=== PATIENT | male | born 1940 | race Caucasian/White ===

== ENCOUNTER 2023-01-10 12:43 | Outpatient (OUT) | payer MEDICARE, SELFPAY ==
[2023-01-10 13:23] LABS: Estimated GFR (African America >60 (>=60); Estimated GFR (Non-African Ame >60 (>=60)
== END 2023-01-10 12:44 | disposition home or self-care (01) ==
LOC: LAB 12:53
PROVIDERS: PCP Internal Medicine; Visit Provider Student in an Organized Health Care Education/Training Program
DX: I71.43 Infrarenal abdominal aortic aneurysm, without rupture (principal)
CPT/HCPCS: 36415; 82565

== ENCOUNTER 2023-05-22 09:07 | Outpatient (OUT) | payer MEDICARE, SELFPAY ==
--- OUTSIDE RECORDS SUMMARY | 2023-05-19 09:49 | XMS_ITS | CCD ---
Author Name Unknown Address [address] [facility] [address] [place] [id number] Organization [facility] Care Team Providers Care Bowl Turner Name Role Phone MISC, DR JOYCE Admitting Unavailable PAOLO, DR JOYCE Attending Unavailable BIRDIE, DR VANESSA Primary Care Unavailable MISC, DR JOYCE Consulting Unavailable BENITA PANCHAL Admitting Unavailable ABDULKADIR, BENITA Attending Unavailable BIRDIE, DR VANESSA Primary Care Unavailable BENITA PANCHAL Consulting Unavailable DESMOND, DR DYSON Admitting Unavailable DESMOND, DR DYSON Attending Unavailable BIRDIE, DR VANESSA Primary Care Unavailable DESMOND, DR DYSON Consulting Unavailable BIRDIE, DR VANESSA Admitting Unavailable BIRDIE, DR VANESSA Attending Unavailable BIRDIE, DR VANESSA Primary Care Unavailable AMBER CHI Referring Unavailable AMBER CHI Attending Unavailable ENRIQUE ADAMSON Attending Unavailable KARIS LOGAN Attending Unavailable Hector Echeverria MD Primary Care Provider [phone] Allergies Allergy Classification Reported Allergen(s) Allergy Type Date of Onset Reaction(s) Facility (1 source) Dextroamphetamine Drug Allergy 03-03-20 15 [facility] Repository (1 source) rofecoxib Drug Allergy 04-03-19 00 [facility] Repository (2 sources) atorvastatin; Translations: [ATORVASTATIN] Drug Allergy 01-06-20 22 [facility] Repository (2 sources) rofecoxib; Translations: [ROFECOXIB] Drug Allergy 03-21-20 14 GI bleeding, Other, Unknown [facility] Repository Medications Current Medications Medication Drug Class(es) Dates Sig (Normalized) Sig (Original) amLODIPine 10 mg oral tablet (2 sources) Dihydropyridine Calcium Channel Jace Start: 06-26-2022 take 1 tablet by mouth in the morning amLODIPine (Norvasc) 10 MG tablet Take 10 mg by mouth in the morning. 0 06/26/2022 Active amLODIPine (Norv asc) 5 MG tablet 1 (one) time each day at the same time. 0 Active aspirin 81 mg delayed release oral tablet (1 source) Platelet Aggregation Inhibitor, Nonsteroidal Anti-inflammatory Drug take 1 tablet by mouth in the morning aspirin 81 MG EC tablet Take 81 mg by mouth in the morning. 0 Active citalopram 20 mg oral tablet (1 source) Serotonin Reuptake Inhibitor Start: 023 take 1 tablet by mouth once daily citalopram (CeleXA) 20 MG tablet Indications: Other specified anxiety disorders TAKE 1 TABLET BY MOUTH EVERY DAY FOR 30 DAYS 90 tablet 3 12/21/2022 Active clopidogrel 75 mg oral tablet (1 source) P2Y12 Platelet Inhibitor Start: 024 take 1 tablet by mouth once daily clopidogrel (Plavix) 75 MG tablet Indications: Peripheral arterial occlusive disease (CMS/HCC) TAKE 1 TABLET BY MOUTH EVERY DAY 90 tablet 1 05/04/2023 Active diazePAM 5 mg oral tablet (1 source) Benzodiazepine Start: 022 take 1 tablet by mouth every twelve hours as needed for anxiety diazePAM (Valium) 5 MG tablet 1 tablet Orally every 12 hours as needed for anxiety 0 12/08/2021 Active docosahexaenoic acid 120 mg / eicosapentaenoic acid 180 mg oral capsule (1 source) take 1 capsule by mouth in the morning omega-3 (fish oil) 1000 MG capsule Take 2 g by mouth in the morning. 0 Active gabapentin 300 mg oral capsule (1 source) Anti-epileptic Agent gabapentin (Neurontin) 300 MG capsule Take 300 mg by mouth in the morning and 300 mg at noon and 300 mg in the evening. 0 Active latanoprost 0.05 mg/ml ophthalmic solution (1 source) Prostaglandin Analog Start: 023 take 1 drop(s) into the eye(s) once daily at bedtime latanoprost (Xalatan) 0.005 % ophthalmic solution PLACE 1 DROP INTO BOTH EYES ONCE A DAY AT BEDTIME 0 11/03/2022 Active lisinopril 5 mg oral tablet (1 source) Angiotensin Converting Enzyme Inhibitor Start: 023 take 1 tablet by mouth once daily lisinopril 5 MG tablet Indications: Benign essential hypertension (CMS/HCC) TAKE 1 TABLET BY MOUTH EVERY DAY 90 tablet 3 09/21/2022 Active phenytoin sodium 100 mg extended release oral capsule (1 source) Anti-epileptic Agent Start: 024 take 1 capsule by mouth twice daily phenytoin ER (Dilantin) 100 MG capsule Indications: Seizure disorder (CMS/HCC) TAKE 1 CAPSULE BY MOUTH TWICE A DAY 180 capsule 1 05/04/2023 Active rosuvastatin calcium 10 mg oral tablet (1 source) HMG-CoA Reductase Inhibitor Start: 023 take 1 tablet by mouth in the morning rosuvastatin (Crestor) 10 MG tablet Take 1 tablet by mouth in the morning. 0 11/10/2022 Active tiZANidine 4 mg oral tablet (1 source) Central alpha-2 Adrenergic Agonist Start: 022 take 1 tablet by mouth three times daily as needed for muscle spasms tiZANidine (Zanaflex) 4 MG tablet 1 tablet Orally Three times a day as needed for back spasm 0 09/23/2021 Active vitamin e d-alpha 400 unt oral capsule (1 source) alpha tocopherol (Vitamin E) 400 units capsule 1 capsule 1 (one) time each day at the same time. 0 Active Vitamin Mixture (VITAMIN E COMPLETE PO) (1 source) take 400 [IU] by mouth in the morning Vitamin Mixture (VITAMIN E COMPLETE PO) Take 400 Units by mouth in the morning. 0 Active Problems Active Problems Problem Classification Problem Date Documented Date Episodic/Chronic Adjustment disorders (1 source) Adjustment disorder; Translations: [Adjustment disorder, unspecified] Onset: 3 09-20-2022 Chronic Anxiety disorders (2 sources) Anxiety state; Translations: [Generalized anxiety disorder] Onset: 3 09-20-2022 Chronic Aortic; peripheral; and visceral artery aneurysms (5 sources) Abdominal aortic aneurysm, without rupture; Translations: [Abdominal aortic aneurysm without rupture] Onset: 2 Chronic Chronic obstructive pulmonary disease and bronchiectasis (1 source) Chronic obstructive lung disease; Translations: [Chronic obstructive pulmonary disease, unspecified] Onset: 3 09-20-2022 Chronic Coronary atherosclerosis and other heart disease (3 sources) Atherosclerotic heart disease of [place] coronary artery without angina pectoris; Translations: [Coronary atherosclerosis] Onset: 3 Chronic Disorders of lipid metabolism (1 source) Hypercholesterolemia; Translations: [Pure hypercholesterolemia, unspecified] Onset: 3 09-20-2022 Chronic Epilepsy; convulsions (1 source) Seizure disorder; Translations: [Epilepsy, unspecified, not intractable, without status epilepticus] Onset: 3 09-20-2022 Chronic Esophageal disorders (1 source) Gastroesophageal reflux disease without esophagitis; Translations: [Gastro-esophageal reflux disease without esophagitis] Onset: 3 09-20-2022 Chronic Essential hypertension (7 sources) Essential (primary) hypertension; Translations: [Benign essential hypertension] Onset: 2 Chronic Osteoarthritis (4 sources) Arthritis of acromioclavicular joint; Translations: [Primary osteoarthritis, unspecified shoulder] Onset: 3 09-20-2022 Chronic Other circulatory disease (1 source) Peripheral arterial occlusive disease; Translations: [Disorder of arteries and arterioles, unspecified] Onset: 3 09-20-2022 Chronic Peripheral and visceral atherosclerosis (3 sources) Peripheral vascular disease, unspecified; Translations: [Peripheral vascular disease] Onset: 3 Chronic Spondylosis; intervertebral disc disorders; other back problems (1 source) Cervical arthritis; Translations: [Spondylosis without myelopathy or radiculopathy, cervical region] Onset: 3 09-20-2022 Chronic Substance-related disorders (5 sources) Nicotine dependence, unspecified, uncomplicated; Translations: [Nicotine dependence] Onset: 2 Chronic Unclassified (1 source) Abdominal aortic aneurysm, without rupture, unspecified; Translations: [Abdominal aortic aneurysm, without rupture, unspecified] Onset: 3 Unclassified (1 source) Infrarenal abdominal aortic aneurysm, without rupture; Translations: [Infrarenal abdominal aortic aneurysm, without rupture] Onset: 3 Past or Other Problems Problem Classification Problem Date Documented Da te Episodic/Chronic Immunizations and screening for infectious disease (1 source) Positive measurement finding; Translations: [Nonspecific reaction to tuberculin skin test without active tuberculosis] Onset: 09-20-2022 09-20-2022 Episodic Other connective tissue disease (1 source) Rotator cuff arthropathy of right shoulder; Translations: [Unspecified rotator cuff tear or rupture of right shoulder, not specified as traumatic] Onset: 09-20-2022 09-20-2022 Episodic Other gastrointestinal disorders (1 source) Constipation; Translations: [Constipation, unspecified] Onset: 09-20-2022 09-20-2022 Episodic Other lower respiratory disease (4 sources) Shortness of breath; Translations: [SHORTNESS OF BREATH] Onset: 12-08-2021 Episodic Other lower respiratory disease (2 sources) Other forms of dyspnea; Translations: [Other forms of dyspnea] Onset: 05-17-2022 Episodic Other non-traumatic joint disorders (1 source) Shoulder joint pain; Translations: [Pain in unspecified shoulder] Onset: 09-20-2022 09-20-2022 Episodic Tuberculosis (1 source) Tuberculosis; 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] Onset: 05-17-2022 05-11-2023 Episodic Unclassified (1 source) Abdominal aortic aneurysm, without rupture, unspecified; Translations: [Abdominal aortic aneurysm, without rupture, unspecified] Onset: 01-16-2023 Unclassified (1 source) Infrarenal abdominal aortic aneurysm, without rupture; Translations: [Infrarenal abdominal aortic aneurysm, without rupture] Onset: 11-18-2022 Viral infection (1 source) Verruca plantaris; Translations: [Plantar wart] Onset: 09-20-2022 09-20-2022 Episodic Results Test Name Value Interpretation Reference Range Facil ity CTA ABDOMEN PELVIS W AND/OR WO IV CONTRASTon 01-16-2023 CTA ABDOMEN PELVIS W AND/OR WO IV CONTRAST CTA ABDOMEN PELVIS W AND/OR WO IV CONTRAST 01/16/2023 12:37 PM CLINICAL INDICATIONS: AAA dilation. PROTOCOL: Abdomen and pelvis CT with and without contrast CONTRAST: 100 mL Omnipaque 350 TECHNIQUE: Multidetector CT angiography axial slices of the abdomen and pelvis were obtained with IV contrast. Multiplanar reformats, MIP, and volume rendered 3-D images were generated on a separate workstation and reviewed to further define anatomy and possible pathology. All CT scans at this facility use dose modulation, iterative reconstruction, and/or weight based dosing when appropriate to reduce radiation dose to as low as reasonably achievable. COMPARISON: 01/05/2022 FINDINGS: Lower Chest: Mild dependent atelectasis. Mild bilateral emphysematous changes. ABDOMEN: Liver: Within normal limits. Bile Ducts: Normal caliber. Gallbladder: Absent gallbladder was metallic clips seen from prior cholecystectomy. Pancreas: Within normal limits. Spleen: Calcific area in the spleen likely represent small calcified granuloma. Otherwise, unremarkable Adrenals: Within normal limits. Kidneys: Tiny cyst at the upper pole of the left kidney. Tiny cysts in the upper pole of the right kidney and small focus of cortical scarring in the anterior lower pole of the right kidney. No renal stones or hydronephrosis. No perinephric stranding and symmetric nephrogram is otherwise visualized. Pelvis: Reproductive Organs: Prominent prostate gland raising possibility of BPH with few prostatic calcification seen. Few calcified phlebolith in the pelvis. Ureters: Within normal limits. Bladder: Within normal limits. Bowel: Uncomplicated sigmoid diverticulosis. Mesenteric Lymph Nodes: No enlarged mesenteric lymph nodes. Peritoneum: No ascites or free air, no fluid collection. Vessels: Atherosclerotic changes with moderate vascular calcification seen. AAA is visualized with endovascular stent graft seen from the level of the renal arteries which appear patent to the common iliac arteries bilaterally. There is no evidence of endoleak. Maximum transverse dimension of the abdominal aortic aneurysm is 2.8 cm the endovascular graft is patent with satisfactory flow appreciated into the iliac arteries bilaterally. Significant vascular calcification seen in the iliac arteries. Suggestion of metallic stent in the femoral arteries bilaterally. Retroperitoneum: Within normal limits. Abdominal Wall: Within normal limits. Bones: Lumbar spondylosis with multilevel disc space narrowing and vacuum phenomenon as well as bony spurring and facet joint disease. There is anterolisthesis at L5-S1 level secondary to bilateral L5 spondylolysis. IMPRESSION: Stable AAA with endovascular stent graft seen and no evidence of endoleak or other complications. Extensive vascular calcifications. Uncomplicated colonic diverticulosis. Bilateral small renal cysts. Lumbar spondylosis. Bilateral femoral artery stents in place. L5 spondylolysis and grade 1 spondylolisthesis. Evidence of prior cholecystectomy. Enlarged prostate suggesting BPH. Electronically signed: Jodi Lakhani. [facility] Follow-Upon 01-16-2023 Follow-Up [id number] Obinna Stark 1940 M Date Provider Department Center 01/16/2023 AMBER [facility] Family History Problem Relation Age of Onset Diabetes Mother Family Status - Relation Status Age at Mother Level of Service:49461 [place] OFFICE/OUTPATIENT ESTABLISHED MOD MDM 30-39 MIN Reason for Visit and Comments: Follow-up [560280] - Yearly fu AAA Normal [facility] Office Visiton 11-18-2022 Follow-up visit [id number] Obinna Stark R 1940 M Date Provider Department Center 11/18/2022 [place]-KARIS LOGAN [facility] Family History Problem Relation Age of Onset Diabetes Mother Family Status - Relation Status Age at Mother Level of Service:44830 NC OFFICE/OUTPATIENT ESTABLISHED MOD MDM 30-39 MIN Reason for Visit and Comments: Follow-up [886388] - 6 month follow up Normal [facility] Office Visiton 05-17-2022 Follow-up visit [id number] Obinna Stark 1940 M Date Provider Department Center 05/17/2022 [id number] ADAMSON [facility] Family History Problem Relation Age of Onset Diabetes Mother Family Status - Relation Status Age at Mother Level of Service:90824 NC OFFICE/OUTPATIENT ESTABLISHED MOD MDM 30-39 MIN Reason for Visit and Comments: Coronary Artery Disease [187] Hypertension [492340] Peripheral Vascular Disease [458] Normal [facility] CREATININEon 12-29-2021 Creatinine [Mass/Vol] 0.70 mg/dL Normal 0.70-1.30 [facility] Comment on above: Performed By: #### C DES #### [facility] [address] [address] [address] Ila Chambers EGFR-AF BULGARIAN >60 Normal >=[address] [facility] Comment on above: Performed By: #### C DES #### [facility] [address] [address] [address] Ila Chambers EGFR-NON AF BULGARIAN >60 Normal >=60 [facility] Comment on above: Performed By: #### C DES #### [facility] [address] [place] [address] Dr. Ila Chambers ECHOCARDIO M/2D COMPLETEon 0 12-08-2021 ECHOCARDIO M/2D COMPLETE Patient: OBINNA STARK Exam Date: 12/08/2021 : 1940 Gender:M Ordering : DR KARIS LOGAN M.D. Admission #: [id number] Family : DR HECTOR ECHEVERRIA M.D. Order #: [id number] CLICK HERE TO VIEW EXAM ECHOCARDIOGRAM REPORT PROCEDURE: CARDIO PULMONARY ECHOCARDIO M/2D COMP INDICATIONS: SOB, 4 mo ago, CAD, H/O Stents COMPARISON: None. DESCRIPTION: COMPLETE ECHOCARDIOGRAM Real-time transthoracic echocardiography with 2D, M-mode, spectral and color flow Doppler performed. QUALITY: Technical quality was good. 70 162# 166/86 HR 76 smoker LEFT VENTRICLE: Normal chamber size. Proximal septal hypertrophy (sigmoid septum). Global left ventricular systolic function is normal. The interventricular septum is abnormal in its motion. LV EF: Visual estimation of left ventricular ejection fraction is 55%. DIASTOLIC: Grade II diastolic dysfunction. ATRIAL SEPTUM: LEFT ATRIUM: Mild dilatation. RIGHT ATRIUM: Mild dilatation. RIGHT VENTRICLE: Mild dilatation. Normal right ventricular systolic function. TRICUSPID VALVE: Normal mobility and thickness. No stenosis with trivial regurgitation. No evidence of pulmonary hypertension. RVSP is 30 mmHg MITRAL VALVE: Normal mobility and thickness. No evidence of mitral valve stenosis. No mitral regurgitation. AORTIC VALVE: Normal trileaflet appearance. No evidence of aortic valve stenosis. No aortic regurgitation. AORTIC ROOT: Normal diameter and appearance. PULMONIC VALVE: Normal thickness and mobility. No stenosis. Trivial regurgitation. PERICARDIUM: No evidence of pericardial effusion. IVC: Collapses with inspirations. IVC is normal in size. PLEURA: CONCLUSION: 1. Left ventricular systolic function is normal. LVEF is 55%. 2. The right ventricle is mildly dilated with normal systolic function. 3. Grade 2 diastolic dysfunction. 4. Mild biatrial dilatation. 5. No significant valvular dysfunction. 6. Normal right-sided pressures. Adult Echocardiography Procedure Report Left Ventricle Left Atrium Mitral Valve Right Ventricle Aorta Aortic Valve Peak Velocity (Antegrade Flow): 1.28 m/s AoV Area (Peak Pascual): 3.68 cm2, 3.68 cm2 Peak Velocity(Antegrade Flow): 1.28 m/s Peak Gradient(Antegrade Flow): 6.51 mm[Hg] Tricuspid Valve Peak Velocity (Regurgitant Flow): 2.62 m/s Peak Velocity: 0.47 m/s Pulmonic Valve PV Max Pascual (0.6 - 0.9 m per sec): 1.11 m/s PV Max Gradient: 4.96 mm[Hg] Right Atrium Dictated by: Karis Logan M.D. on 12/08/2021 at 18:31 Approved by: Karis Logan M.D. on 12/08/2021 at 18:35 Normal [facility] PROF CHEM 8 (BAS METB)on Anion gap [Moles/Vol] 10.7 mmol/L Normal [facility] Comment on above: Performed By: #### B MP #### [facility] [address] [place] [address] Dr. Ila Chambers Calcium [Mass/Vol] 8.2 mg/dL Critically low 8.4-10.2 [facility] Comment on above: Performed By: #### B MP #### [facility] [address] [place] [address] Dr. Ila Chambers Chloride [Moles/Vol] 100 mmol/L Normal 98-107 [facility] Comment on above: Performed By: #### B MP #### [facility] [address] [address] [address] Ila Chambers CO2 [Moles/Vol] 28.9 mmol/L Normal 22.0-30.0 [facility] Comment on above: Performed By: #### B MP #### [facility] [address] [place] [address] Dr. Ila Chambers Creatinine [Mass/Vol] 0.79 mg/dL Normal 0.66-1.25 [facility] Comment on above: Performed By: #### B MP #### [facility] [address] [place] [address] Dr. Ila Chambers EGFR-AF BULGARIAN >60 Normal >=[address] [facility] Comment on above: Performed By: #### B MP #### [facility] [address] [place] [address] Dr. Ila Chambers EGFR-NON AF BULGARIAN >60 Normal >=60 [facility] Comment on above: Performed By: #### B MP #### [facility] [address] [place] [address] Dr. Ila Chambers Glucose [Mass/Vol] 98 mg/dL Normal 74-106 [facility] Comment on above: Performed By: #### B MP #### [facility] [address] [place] [address] Dr. Ila Chambers Potassium [Moles/Vol] 3.6 mmol/L Normal 3.4-5.0 [facility] Comment on above: Performed By: #### B MP #### [facility] [address] [place] [address] Dr. Ila Chambers Sodium [Moles/Vol] 136 mmol/L Critically low 137-145 Th [facility] Comment on above: Performed By: #### B MP #### [facility] [address] [place] [address] Dr. Ila Chambers Urea nitrogen [Mass/Vol] 11.0 mg/dL Normal 9.0-20.0 [facility] Comment on above: Performed By: #### B MP #### [facility] [address] [place] [address] Dr. Ila Chambers Urea nitrogen/Creatinin e [Mass ratio] 13.9 mg/mg Normal [facility] Comment on above: Performed By: #### B MP #### [facility] [address] [place] [address] Dr. Ila Chambers CTA ABDOMEN AND PELVISon CTA ABDOMEN AND PELVIS [facility] Department of Radiology [address] [place] [id number] ======== Patient Name: OBINNA STARK : 1940 Sex: M Age: Race: White Pt. Location: Patient Status: D Ordered Date: 11/05/2020 3:00:00 PM Completed Date: 12/23/2020 10:31 AM Requesting Provider: AMBER CHI Attending Provider: AMBER CHI Report Copy To: HECTOR ECHEVERRIA Signs & Symptoms: I71.4 Abdominal aortic aneurysm, without rupture I10 History: Josie Patient will have labs done closer to home before CT Comments: , , , Ordering Provider - AMBER CHI MD , Exam: CTA ABDOMEN AND PELVIS ======== CTA ABDOMEN AND PELVIS 12/23/2020 10:31 AM SIGNS AND SYMPTOMS: I71.4 Abdominal aortic aneurysm, without rupture I10 TECHNOLOGIST COMMENTS: follow up endo repair QUESTION FOR THE RADIOLOGIST: , , , Ordering Provider - AMBER CHI MD , PROTOCOL: Axial CT angiography images were obtained with IV contrast. CONTRAST: Contrast: OMNIPAQUE 350 (LOCM), 100 milliliter, Intravenous TECHNIQUE: Multidetector CT angiography axial slices of the abdomen and pelvis were obtained with IV contrast. Multiplanar reformats, MIP, and volume rendered 3-D images were generated on a separate workstation and reviewed to further define anatomy and possible pathology. Appropriate CT dose lowering techniques were utilized. COMPARISON: 12/24/2019 FINDINGS Lower Chest: Bilateral emphysematous changes and minimal dependent atelectasis with no focal consolidation, effusion or pneumothorax. ABDOMEN: Liver: Within normal limits. Bile Ducts: Normal caliber. Gallbladder: Absent with metallic clips seen likely from prior cholecystectomy. Pancreas: Within normal limits. Spleen: Coarse calcific density in the spleen superior pole laterally similar to prior study Adrenals: Within normal limits. Kidneys: Within normal limits with subcentimeter small bilateral renal cysts. Pelvis: Reproductive Organs: Prominent prostate gland indenting the bladder base with few prostatic calcification seen. Findings may represent BPH and clinical correlation is suggested. Ureters: Within normal limits. Bladder: Within normal limits. Bowel: Normal caliber. Uncomplicated sigmoid diverticulosis. Mesenteric Lymph Nodes: No enlarged mesenteric lymph nodes. Peritoneum: No ascites or free air, no fluid collection. Vessels: Atherosclerotic changes with vascular calcification seen. Small infrarenal abdominal aortic aneurysm with maximum diameter of 3.6 cm, slightly decreased since prior study. Endovascular stent graft is visualized extending to the common iliac arteries bilaterally. There is no evidence of endoleak following contrast administration. Incidental note is made of separate origin of the hepatic artery and splenic artery from the aorta, SMA and single bilateral renal arteries are visualized and appeared unremarkable. The graft is immediately infrarenal and appears unchanged since prior study. There is vascular calcification in the iliac and femoral arteries bilaterally. Retroperitoneum: Within normal limits. Abdominal Wall: Within normal limits. Bones: Bony spurring in the lumbar spine with grade 1 anterolisthesis of L5 on S1 with disc space narrowing likely secondary to severe facet joint disease and bilateral L5 spondylolysis : . Bilateral degenerative sacroiliitis. Mild levoconvex lumbar scoliosis. Vascular stent is also seen in the left and right femoral arteries IMPRESSION: Stable infrarenal abdominal aortic aneurysm with slight decrease in size but intact endovascular stent graft with no evidence of endoleak. Possible granulomatous disease in the spleen and evidence of prior cholecystectomy. Uncomplicated sigmoid diverticulosis. Small bilateral renal cysts. Emphysematous changes in the lung bases. L5 spondylolysis and grade 1 spondylolisthesis with lower lumbar spondylosis, scoliosis and degenerative arthritis in the sacroiliac joints All CT scans at this facility use dose modulation, iterative reconstruction, and/or weight based dosing when appropriate to reduce radiation dose to as low as reasonably achievable Electronically signed: Jodi Lakhani. Transcribed by: [email or web address], User Resident: Electronically Signed by: JODI LAKHANI @ 12/27/2020 10:59 AM Normal [facility] Comment on above: Order Comment: , , = ========= , Ordering Provider - AMBER CHI MD , Encounters Encounter Date Encounter Type Care Provider Facility Start: 05-11-2023 Chart abstracting Hector dean MD Work Phone: [facility] Start: 01-16-2023 ambulatory [facility] Start: 01-16-2023 End: 01-17-2023 ambulatory MOHAMED MENDEL [facility] Start: 11-18-2022 End: 11-18-2022 ambulatory KARIS LOGAN [facility] Start: 05-23-[address] HECTOR ECHEVERRIA [facility] y:H1 Start: 05-17-2022 End: 05-17-2022 ambulatory ENRIQUE ADAMSON [facility] Start: 12-29-2021 End: 12-30-[address] DOCTOR BONOE Facility:H1 Start: 12-08-2021 End: 12-09-[address] KARIS LOGAN Facility:H1 Start: 06-03-2021 End: 06-04-2021 ambulatory BENITA PANCHAL Facility:H1 Plan of Treatment Date Care Activity Detail Author Start: 01-29-2024 End: 01-29-2024 Patient encounter procedure 01/29/2024 11:35 AM EDT Office Visit [facility] [address] [place] [id number] Sri Montoya, SALES EXECUTIVE-ENGINE BUILDER [address] [place] [address] [facility] Start: 05-15-2023 End: 05-15-2023 Patient encounter procedure 05/15/2023 1:00 PM EST Office Visit [facility] [address] [facility] [address] [place] [address] Hector Echeverria MD [address] [facility] [address] [place] [address] [facility] Start: 1940 Medicare Annual Well ness (AWV) Medicare Annual Wellness (AWV) [facility] Immunizations Immunization Date Immunization Notes Care Provider Fa [facility] 12-20-2022 Influenza, Seasonal, Quadrivalent, Adjuvanted Hector Echeverria MD Work Phone: [facility] 03-09-2022 Influenza, High-dose Seasonal, Quadrivalent, Preservative Free Hector Echeverria MD Work Phone: [facility] 01-14-2022 Influenza, High-dose Seasonal, Quadrivalent, Preservative Free Hector Echeverria MD Work Phone: [facility] 01-04-2021 Influenza, High-dose Seasonal, Quadrivalent, Preservative Free Hector Echeverria MD Work Phone: [facility] 12-10-2020 tetanus toxoid, redu gloria diphtheria toxoid, and acellular pertussis vaccine, adsorbed Hector Echeverria MD Work Phone: [facility] 12-30-2019 influenza, high dose seasonal, preservative-free Hector Echeverria MD Work Phone: [facility] 12-30-2019 Influenza, High-dose Seasonal, Quadrivalent, Preservative Free Hector Echeverria MD Work Phone: [facility] 02-07-2019 pneumococcal conjuga te vaccine, 13 valent Hector Echeverria MD Work Phone: [facility] 01-16-2019 Influenza, injectabl e, Madin Faywood Canine Kidney, quadrivalent with preservative Hector Echeverria MD Work Phone: [facility] 01-03-2018 influenza, high dose seasonal, preservative-free Hector Echeverria MD Work Phone: [facility] 01-03-2018 Influenza, High-dose Seasonal, Quadrivalent, Preservative Free Hector Echeverria MD Work Phone: [facility] 12-07-2016 influenza, injectabl e, quadrivalent, preservative free Hector Echeverria MD Work Phone: [facility] 12-07-2016 pneumococcal polysaccharide vaccine, 23 valmaurice Echeverria MD Work Phone: [facility] 02-09-2016 influenza, high dose seasonal, preservative-free Hector Echeverria MD Work Phone: [facility] 02-13-2014 pneumococcal polysaccharide vaccine, 23 valmaurice Echeverria MD Work Phone: [facility] 01-20-2014 seasonal influenza, intradermal, preservative free Hector Echeverria MD Work Phone: [facility] Payers Date Payer Category Payer Unknown AARP AARP [id number] 2022-Present [address] [place] [address] [id number] 2003 Medicare MEDICARE MEDICAR E PART B [id number] 2003-Present [address] [address] [place] [address] Medicare [id number] 1959 Medicare [id number] 1959 Self-pay 1959 Unknown [id number] 1938 Unknown [id number] 1938 Unknown [id number] 1938 Unknown [id number] Unknown [id number] Social History Date Type Detail Facility Start: 01-13-2023 Tobacco smoking stat [facility] Never smoked tobacco [facility] Start: 05-11-2023 Alcohol intake Lifetime non-d juan (finding) [facility] Start: 01-26-2023 History of Social function [facility] Start: 01-26-2023 Tobacco use panel [facility] Start: 1940 Sex Assigned At Not on file [facility] Progress note 01-16-2023 Note Date & Type Note Facility 01-16-[address] angiogram in 1 ye ar. Continue risk factors modification. [facility] Progress note 01-16-2023 Note Date & Type Note Facility 01-16-2023 Note Subjective Patient ID: Obinna Stark is a 82 y.o. male who presents for Follow-up (Yearly fu AAA). HPI 82-year-old gentleman status post EVAR. He is here with annual CTA. I independently interpreted and reviewed the CTA. No evidence of endoleak stent fracture or migration. Aneurysm continues to be excluded. He has no abdominal pain or back pain. He is doing well. Review of Systems Constitutional: Positive for appetite change. Negative for activity change, chills, diaphoresis, fatigue, fever and unexpected weight change. HENT: Positive for postnasal drip and voice change. Negative for congestion, dental problem, drooling, ear discharge, ear pain, facial swelling, hearing loss, mouth sores, nosebleeds, rhinorrhea, sinus pressure, sinus pain, sneezing, sore throat, tinnitus and trouble swallowing. Eyes: Positive for visual disturbance. Negative for photophobia, pain, discharge, redness and itching. Respiratory: Positive for cough, shortness of breath and wheezing. Negative for apnea, choking, chest tightness and stridor. Cardiovascular: Negative for chest pain, palpitations and leg swelling. Gastrointestinal: Negative for abdominal distention, abdominal pain, anal bleeding, blood in stool, constipation, diarrhea, nausea, rectal pain and vomiting. Endocrine: Negative for cold intolerance, heat intolerance, polydipsia, polyphagia and polyuria. Genitourinary: Positive for frequency. Negative for decreased urine volume, difficulty urinating, dysuria, enuresis, flank pain, genital sores, hematuria, penile discharge, penile pain, penile swelling, scrotal swelling, testicular pain and urgency. Musculoskeletal: Positive for joint swelling. Negative for arthralgias, back pain, gait problem, myalgias, neck pain and neck stiffness. Skin: Negative for color change and rash. Allergic/Immunologic: Negative for environmental allergies, food allergies and immunocompromised state. Neurological: Positive for weakness and light-headedness. Negative for dizziness, tremors, seizures, facial asymmetry, speech difficulty, numbness and headaches. Hematological: Negative for adenopathy. Bruises/bleeds easily. Psychiatric/Behavioral: Negative for agitation, behavioral problems, confusion, decreased concentration, dysphoric mood, hallucinations, self-injury, sleep disturbance and suicidal ideas. The patient is not nervous/anxious and is not hyperactive. Objective Visit Vitals BP 120/57 (BP Location: Right leg, Patient Position: Sitting) Pulse 74 Temp 36.6 ???C (97.8 ???F) (Temporal) Physical Exam Constitutional: Appearance: Normal appearance. He is normal weight. HENT: Head: Normocephalic and atraumatic. Nose: Nose normal. Mouth/Throat: Mouth: Mucous membranes are moist. Pharynx: Oropharynx is clear. Eyes: Extraocular Movements: Extraocular movements intact. Conjunctiva/sclera: Conjunctivae normal. Pupils: Pupils are equal, round, and reactive to light. Cardiovascular: Rate and Rhythm: Normal rate and regular rhythm. Pulses: Normal pulses. Heart sounds: Normal heart sounds. Pulmonary: Effort: Pulmonary effort is normal. Breath sounds: Normal breath sounds. Abdominal: General: Abdomen is flat. Bowel sounds are normal. Palpations: Abdomen is soft. Musculoskeletal: General: Normal range of motion. Cervical back: Normal range of motion and neck supple. Skin: General: Skin is warm and dry. Capillary Refill: Capillary refill takes less than 2 seconds. Neurological: General: No focal deficit present. Mental Status: He is alert and oriented to person, place, and time. Mental status is at baseline. Psychiatric: Mood and Affect: Mood normal. Behavior: Behavior normal. Thought Content: Thought content normal. Judgment: Judgment normal. Assessment/Plan Problem List Items Addressed This Visit Circulatory AAA (abdominal aortic aneurysm) (CMS/HCC) - Primary CT angiogram in 1 year. Continue risk factors modification. Diagnosis Plan 1. Infrarenal abdominal aortic aneurysm (AAA) without rupture (CMS/HCC) No orders of the defined types were placed in this encounter. No results found for this or any previous visit (from the past 36 hour(s)). No follow-ups on file. [facility] Progress note 11-18-2022 Note Date & Type Note Facility 11-18-2022 Note [facility] Myesha Stark is a 82 y.o. year old male patient being seen for Follow-up (6 month follow up ) Patient Active Problem List Diagnosis ??? AAA (abdominal aortic aneurysm) (CMS/HCC) ??? Smoking greater than 20 pack years ??? Acute sinusitis ??? Coronary atherosclerosis ??? Gallstone ??? Neck pain ??? Peripheral vascular disease (CMS/HCC) ??? Tobacco dependence syndrome ??? Tuberculosis ??? Abdominal aortic aneurysm (CMS/HCC) ??? Arthritis of right acromioclavicular joint ??? Adjustment disorder, unspecified ??? Anxiety state ??? Benign essential hypertension ??? Cervical spine arthritis ??? Claustrophobia ??? Constipation ??? Gastro-esophageal reflux disease without esophagitis ??? COPD (chronic obstructive pulmonary disease) (CMS/HCC) ??? Generalized osteoarthrosis, involving multiple sites ??? Hypercholesterolemia ??? Osteoarthritis of right hip ??? Peripheral arterial occlusive disease (CMS/HCC) ??? Positive TB test ??? Rotator cuff tear arthropathy of right shoulder ??? Seizure disorder (CMS/HCC) ??? Shoulder joint pain ??? Verruca plantaris Family History Problem Relation Name Age of Onset ??? Diabetes Mother Social History Tobacco Use ??? Smoking status: Every Day Packs/day: 1.00 Types: Cigarettes Passive exposure: Never ??? Smokeless tobacco: Never Substance Use Topics ??? Alcohol use: Never ??? Drug use: Never HPI Mr Stark is seen to follow up on CAD s/p stenting of the circumflex in the past, PAD and claudication. He is 82 yo. He is s/p revascularization of his lower extremities: 04/25/2016: POLE INCISOR OPERATOR and drug eluting Zilver PTX stents of the right SFA total occlusion 03/24/2016: POLE INCISOR OPERATOR and drug eluting Zilver PTX stents and a Supera IDEV stent of the left SFA total occlusion He was evaluated in 02/2017 due to claudication and his ultrasound showed evidence of more than 75% stenosis in the left SFA stent. He underwent angiogram and drug coated balloon to 80% in-stent restenosis in the mid left SFA using an IN.PACT 6 x 150 mm drug-coated balloon with reduction of the stenosis to 0%. He has an abdominal aortic aneurysm now s/p EVAR by Dr Chi. Today he reports doing well. He has no angina, no heart failure symptoms, no claudication. No ulcers in the feet. No rest leg pain. Review of Systems All other systems reviewed and are negative. Objective Visit Vitals BP 120/60 (BP Location: Left arm, Patient Position: Sitting, BP Cuff Size: Adult) Pulse 71 Resp 10 Ht 1.778 m (5' 10 ) Wt 73.5 kg (162 lb) SpO2 97% BMI 23.24 kg/m??? Smoking Status Every Day BSA 1.91 m??? Physical Exam Constitutional: Appearance: He is well-developed. He is not ill-appearing. HENT: Head: Normocephalic and atraumatic. Nose: Nose normal. Eyes: General: No scleral icterus. Pupils: Pupils are equal, round, and reactive to light. Neck: Thyroid: No thyromegaly. Vascular: No JVD. Cardiovascular: Rate and Rhythm: Normal rate and regular rhythm. Pulses: Radial pulses are 2+ on the right side and 2+ on the left side. Heart sounds: Normal heart sounds. No murmur heard. No friction rub. No gallop. Pulmonary: Effort: Pulmonary effort is normal. No respiratory distress. Breath sounds: Normal breath sounds. No wheezing or rales. Chest: Chest wall: No tenderness. Abdominal: General: Bowel sounds are normal. There is no distension. Palpations: Abdomen is soft. Tenderness: There is no abdominal tenderness. Musculoskeletal: General: No swelling. Cervical back: Neck supple. Skin: General: Skin is warm and dry. Findings: Ecchymosis present. Neurological: General: No focal deficit present. Mental Status: He is alert and oriented to person, place, and time. Psychiatric: Mood and Affect: Mood normal. Behavior: Behavior is cooperative. Judgment: Judgment normal. Allergies Allergies Allergen Reactions ??? Rofecoxib Unknown and Other Internal bleeding ??? Atorvastatin Other Medications Current Outpatient Medications: ??? amLODIPine (Norvasc) 5 mg tablet, 1 (one) time each day at the same time., Disp: , Rfl: ??? aspirin 81 mg EC tablet, Take 1 tablet every day by oral route., Disp: , Rfl: ??? citalopram (CeleXA) 20 mg tablet, TAKE 1 TABLET BY MOUTH EVERY DAY FOR 30 DAYS, Disp: , Rfl: ??? clopidogrel (Plavix) 75 mg tablet, Take 75 mg by mouth in the morning., Disp: , Rfl: ??? lisinopril 5 mg tablet, Take 5 mg by mouth in the morning., Disp: , Rfl: ??? phenytoin ER (Dilantin) 100 mg capsule, Take 1 capsule by mouth in the morning and at bedtime., Disp: , Rfl: ??? rosuvastatin (Crestor) 10 mg tablet, TAKE 1 TABLET BY MOUTH EVERY DAY (Patient taking differently: Take 5 mg by mouth in the morning.), Disp: 90 tablet, Rfl: 0 Recent Labs No visits with results within 6 Month(s) from this visit. Latest known visit with results is: Legacy Encounter on (more content not included)... [facility] Progress note 05-17-2022 Note Date & Type Note Facility 05-17-2022 Note Cardiology Clinic No te Subjective Obinna Stark is a 81 y.o. year old male patient with history of CAD s/p stenting of the circumflex in the past, PAD, and AAA s/p EVAR seen in follow-up. He reports ongoing fatigue and dyspnea on exertion which are stable. He has numbness and experiences temperature differences in his right arm and leg. Occasional leg cr He is dealing with the loss of his about 8 months. Patient Active Problem List Diagnosis AAA (abdominal aortic aneurysm) Smoking greater than 20 pack years Acute sinusitis Coronary atherosclerosis Gallstone Neck pain Peripheral vascular disease (CMS/HCC) Tobacco dependence syndrome Tuberculosis Abdominal aortic aneurysm Family History Problem Relation Name Age of Onset Diabetes Mother Social History Tobacco Use Smoking status: Every Day Packs/day: 1.00 Types: Cigarettes Passive exposure: Never Smokeless tobacco: Never Substance Use Topics Alcohol use: Never Drug use: Never HPI Mr Stark is an 81-year-old male with CAD s/p stenting of the circumflex in the past, PAD and claudication. He is s/p revascularization of his lower extremities: 04/25/2016: POLE INCISOR OPERATOR and drug eluting Zilver PTX stents of the right SFA total occlusion 03/24/2016: POLE INCISOR OPERATOR and drug eluting Zilver PTX stents and a Supera IDEV stent of the left SFA total occlusion He was evaluated in 02/2017 due to claudication and his ultrasound showed evidence of more than 75% stenosis in the left SFA stent. He underwent angiogram and drug coated balloon to 80% in-stent restenosis in the mid left SFA using an IN.PACT 6 x 150 mm drug-coated balloon with reduction of the stenosis to 0%. He has an abdominal aortic aneurysm now s/p EVAR by Dr Chi. Review of Systems Cardiovascular: Negative for chest pain, claudication, dyspnea on exertion, leg swelling, orthopnea, palpitations, paroxysmal nocturnal dyspnea and syncope. Musculoskeletal: Positive for muscle cramps. Objective Visit Vitals BP 150/75 (BP Location: Right arm, Patient Position: Sitting) Pulse 77 Ht 1.778 m (5' 10 ) Wt 73.5 kg (162 lb) SpO2 98% BMI 23.24 kg/m??? Smoking Status Every Day BSA 1.91 m??? Physical Exam General: Awake, alert, good spirits. NAD Pulm: Breath sounds clear to ascultation bilaterally with no wheeze, crackles or rhonchi Cards: Regular rate and rhythm, S1, S2. No S3 or S4 gallop. Murmur: none Abd: Soft, Nontender, physiologic bowel sounds are present Extr: Lower extremity edema: None. DP pulses:2+ Skin: warm, dry, well perfused Neuro: A&Ox3, No gross deficits Allergies Allergies Allergen Reactions Rofecoxib Unknown and Other Internal bleeding Atorvastatin Other Medications Current Outpatient Medications: amLODIPine (Norvasc) 5 mg tablet, 1 (one) time each day at the same time., Disp: , Rfl: aspirin 81 mg EC tablet, Take 1 tablet every day by oral route., Disp: , Rfl: citalopram (CeleXA) 20 mg tablet, TAKE 1 TABLET BY MOUTH EVERY DAY FOR 30 DAYS, Disp: , Rfl: clopidogrel (Plavix) 75 mg tablet, Take 75 mg by mouth in the morning., Disp: , Rfl: phenytoin ER (Dilantin) 100 mg capsule, Take 1 capsule by mouth in the morning and at bedtime., Disp: , Rfl: rosuvastatin (Crestor) 5 mg tablet, Take 5 mg by mouth at bedtime., Disp: , Rfl: tiZANidine (Zanaflex) 4 mg tablet, TAKE 1 TABLET BY MOUTH 3 TIMES A DAY NEEDED FOR BACK SPASM, Disp: , Rfl: Recent Labs Lab Results Component Value Date CO2 22 11/11/2018 BUN 8 11/11/2018 CALCIUM 7.8 (L) 11/11/2018 Lab Results Component Value Date WBC 8.96 11/11/2018 HGB 12.7 (L) 11/11/2018 HCT 36.9 (L) 11/11/2018 MCV 88.7 11/11/2018 PLT 111 (L) 11/11/2018 No results found for: CHOL, TRIG, HDL, LDLDIRECT Imaging and other tests Echocardiogram: 12/08/2021 Left ventricle: Normal chamber size. Proximal septal hypertrophy (sigmoid septum). Global left ventricular systolic function is normal. The intraventricular septum is abnormal in its motion. LVEF: Visualized admission of left ventricular ejection fraction is 55%. Diastolic: Grade 2 diastolic dysfunction Left atrium: Mild dilatation Right atrium mild dilatation Right ventricle mildly Tatian. Normal right ventricular systolic function Tricuspid valve: Normal mobility and thickness. No stenosis with trivial regurgitation. No evidence of pulmonary hypertension. RVSP is 30 mmHg. Aortic valve: Normal trileaflet appearance. No evidence of aortic valve stenosis. No aortic regurgitation. Aortic root: Normal diameter and appearance. Pulmonic valve: Normal thickness and mobility. No stenosis. Trivial regurgitation. Pericardium: No evidence of pericardial effusion. IVC: Collapses with inspirations. IVC is normal in size. CTA 12/24/2019: 1. Stable abdominal aortic aneurysm with evidence of endovascular stent graft to the common iliac arteries. No evidence of endoleak. 2. Reflux of contrast into the IVC and hepatic veins, findi (more content not included)... [facility] Progress note 05-17-2022 Note Date & Type Note Facility 05-17-2022 Note Patient here for 6 m o follow up CAD, hypertension, PAD, and AAA. He sees [facility]. Had echo in Dec 2021. Denies chest pain. States his SOB with exertion is unchanged from prior visit in Nov 2021. C/o coldness and tingling on right side of his body. Thinks maybe he has a circulation problem. Review of Systems Constitutional: Positive for malaise/fatigue. Cardiovascular: Positive for dyspnea on exertion. Respiratory: Positive for cough and wheezing. Hematologic/Lymphatic: Bruises/bleeds easily. Musculoskeletal: Positive for arthritis, back pain, joint pain, muscle weakness and myalgias. All other systems reviewed and are negative. [facility] Summary Purpose Family History No Family History Records FoundNo Family History Records FoundNo Family History Records Found Advance Directives No Advanced Directives Records FoundNo Advanced Directives Records FoundNo Advanced Directives Records Found Additional Source Comments (unrecognized sect ion and content) No Status Records FoundNo Status Records FoundNo Status Records Found INFORMATION SOURCE (unrecogn ized section and content) DATE CREATED AUTHOR 12/29/2020 [facility] DATE CREATED AUTHOR AUTHOR'S ORGANIZ ATION 05/23/[address] [facility] DATE CREATED AUTHOR AUTHOR'S ORGANIZ ATION 01/27/2023 [facility] Care Teams (unrecognized sec tion and content) Bowl Turner Relationship Specialty Start Date End Date Hector Echeverria MD [address] [facility] [address] [place] [address] PCP - General Internal Medicine 08/09/22 FOR RECORDS PERTAINING TO PATIENTS WHO ARE OR HAVE BEEN ENROLLED IN A CHEMICAL DEPENDENCY/SUBSTANCEABUSE PROGRAM, SOME INFORMATION MAY BE OMITTED. This clinical summary was aggregated from multiple sources. Caution should be exercised in using it in the provision of clinical care. This summary normalizes information from multiple sources, and as a consequence, information in this document may materially change the coding, format and clinical context of patient data. In addition, data may be omitted in some cases. CLINICAL DECISIONS SHOULD BE BASED ON THE PRIMARY CLINICAL RECORDS. [employer] provides no warranty or guarantee of the accuracy or completeness of information in this document.
--- OUTSIDE RECORDS SUMMARY | 2023-05-22 09:11 | XMS_ITS | CCD ---
Author Name Unknown Address [address] [address] [place] [address] Organization [facility] Care Team Providers Care Tableau Developer Name Role Phone MISC, DR JOYCE Admitting [...] Unavailable Hector Echeverria MD Primary Care Provider Allergies Allergy Classification Reported Allergen(s) Allergy Type Date of Onset Reaction(s) Facility (1 source) Dextroamphetamine Drug Allergy 03-03-20 15 [facility] Repository (1 source) rofecoxib Drug Allergy 04-03-19 00 [facility] Repository (2 sources) atorvastatin; Translations: [ATORVASTATIN] Drug Allergy 01-06-20 22 [facility] Repository (2 sources) rofecoxib; Translations: [ROFECOXIB] Drug Allergy 03-21-20 14 GI bleeding, Other, Unknown [facility] Repository Medications Current Medications Medication Drug Class(es) [...] disease (3 sources) Atherosclerotic heart disease of [place] coronary artery without angina pectoris; Translations: [Coronary [...] suggesting BPH. Electronically signed: Jodi Lakhani. Jose [facility] Follow-Upon 01-16-2023 Follow-Up [id number] Obinna Stark 1940 M Date Provider Department Center 01/16/2023 AMBER HILLIARD [facility] Family History Problem Relation Age of Onset Diabetes Mother Family Status - Relation Status Age at Mother Level of Service:88137 MD OFFICE/OUTPATIENT ESTABLISHED MOD MDM 30-39 MIN Reason for Visit and Comments: Follow-up [806537] - Yearly fu AAA Normal [facility] Office Visiton 11-18-2022 Follow-up visit [id number] Obinna Stark R 1940 M Date Provider Department Center 11/18/2022 [place]-KARIS LOGAN [facility] Family History Problem Relation Age of Onset Diabetes Mother Family Status - Relation Status Age at Mother Level of Service:11306 MD OFFICE/OUTPATIENT ESTABLISHED MOD MDM 30-39 MIN Reason for Visit and Comments: Follow-up [034715] - 6 month follow up Normal [facility] Office Visiton 05-17-2022 Follow-up visit [id number] Obinna Stark 1940 M Date Provider Department Center 05/17/2022 [id number] ADAMSON [facility] Family History Problem Relation Age of Onset Diabetes Mother Family Status - Relation Status Age at Mother Level of Service:63437 MD OFFICE/OUTPATIENT ESTABLISHED MOD MDM 30-39 MIN Reason for Visit and Comments: Coronary Artery Disease [187] Hypertension [292633] Peripheral Vascular Disease [458] Normal [facility] CREATININEon 12-29-2021 Creatinine [Mass/Vol] 0.70 mg/dL Normal 0.70-1.30 [facility] Comment on above: Performed By: #### C DES #### [facility] Laboratory [address] [address] [address] Ila Chambers EGFR-AF MALAYSIAN >60 Normal >=60 [facility] Comment on above: Performed By: #### C DES #### [facility] [address] [address] [address] Ila Chambers EGFR-NON AF MALAYSIAN >60 Normal >=60 [facility] Comment on above: Performed By: #### C DES #### [facility] [address] [place] [address] Dr. Ila Chambers ECHOCARDIO M/2D COMPLETEon 0 12-08-2021 ECHOCARDIO M/2D COMPLETE Patient: OBINNA STARK Exam Date: 12/08/2021 : 1940 Gender:M Ordering : DR KARIS LOGAN M.D. Admission #: [id number] Family : DR HECTOR ECHEVERRIA M.D. Order #: [id number] CLICK HERE TO VIEW EXAM ECHOCARDIOGRAM REPORT [...] Logan M.D. on 12/08/2021 at 18:35 Normal [facility] PROF CHEM 8 (BAS METB)on Anion gap [Moles/Vol] 10.7 mmol/L Normal [facility] Comment on above: Performed By: #### B MP #### [facility] [address] [place] [address] Dr. Ila Chambers Calcium [Mass/Vol] 8.2 mg/dL Critically low 8.4-10.2 [facility] Comment on above: Performed By: #### B MP #### [facility] [address] [place] [address] Dr. Ila Chambers Chloride [Moles/Vol] 100 mmol/L Normal 98-107 [facility] Comment on above: Performed By: #### B MP #### [facility] [address] [address] [address] Ila Chambers CO2 [Moles/Vol] 28.9 mmol/L Normal 22.0-30.0 [facility] Comment on above: Performed By: #### B MP #### [facility] [address] [place] [address] Dr. Ila Chambers Creatinine [Mass/Vol] 0.79 mg/dL Normal 0.66-1.25 [facility] Comment on above: Performed By: #### B MP #### [facility] [address] [place] [address] Dr. Ila Chambers EGFR-AF MALAYSIAN >60 Normal >=60 [facility] Comment on above: Performed By: #### B MP #### [facility] [address] [place] [address] Dr. Ila Chambers EGFR-NON AF MALAYSIAN >60 Normal >=60 [facility] Comment on above: Performed By: #### B MP #### [facility] [address] [place] [address] Dr. Ila Chambers Glucose [Mass/Vol] 98 mg/dL Normal 74-106 [facility] Comment on above: Performed By: #### B MP #### [facility] [address] [place] [address] Dr. Ila Chambers Potassium [Moles/Vol] 3.6 mmol/L Normal 3.4-5.0 [facility] Comment on above: Performed By: #### B MP #### [facility] [address] [place] [address] Dr. Ila Chambers Sodium [Moles/Vol] 136 mmol/L Critically low 137-145 [facility] Comment on above: Performed By: #### B MP #### [facility] [address] [place] [address] Dr. Ila Chambers Urea nitrogen [Mass/Vol] 11.0 mg/dL Normal 9.0-20.0 [facility] Comment on above: Performed By: #### B MP #### [facility] [address] [place] [address] Dr. Ila Chambers Urea nitrogen/Creatinin e [Mass ratio] 13.9 mg/mg Normal [facility] Comment on above: Performed By: #### B MP #### [facility] [address] [place] [address] Dr. Ila Chambers CTA ABDOMEN AND PELVISon CTA ABDOMEN AND PELVIS [facility] Department of Radiology [address] [place] [id number] ======== Patient Name: OBINNA STARK : [...] achievable Electronically signed: Jodi Lakhani. Transcribed by: [email or web address], User Resident: Electronically Signed by: JODI LAKHANI @ 12/27/2020 10:59 AM Normal [facility] Comment on above: Order Comment: , , = ========= , Ordering Provider - AMBER CHI MD , Encounters Encounter Date Encounter Type Care Provider Facility Start: 05-11-2023 Chart abstracting Hector dean MD Work Phone: [facility] Start: 01-16-2023 ambulatory [facility] Start: 01-16-2023 End: 01-17-2023 ambulatory MOHAMED MENDEL [facility] Start: 11-18-2022 End: 11-18-2022 ambulatory KARIS LOGAN [facility] Start: 05-23-[address] HECTOR ECHEVERRIA [facility] y:H1 Start: 05-17-2022 End: 05-17-2022 ambulatory ENRIQUE ADAMSON [facility] Start: 12-29-2021 End: 12-30-[address] DOCTOR BOONE Facility:[facility]1 Start: 12-08-2021 End: 12-09-[address] KARIS LOGAN Facility:[facility] Start: 06-03-2021 End: 06-04-2021 ambulatory BENITA PANCHAL Facility:[facility]1 Plan of Treatment Date Care Activity Detail Author Start: 01-29-2024 End: 01-29-2024 Patient encounter procedure 01/29/2024 11:35 AM EDT Office Visit [facility] [address] [place] [id number] Sri Montoya, [employer] [address] [place] [address] [facility] Start: 05-15-2023 End: 05-15-2023 Patient encounter procedure 05/15/2023 1:00 PM EST Office Visit [facility] [address] [facility] [address] [place] [address] Hector Echeverria MD [address] [facility] [address] [place] [address] [facility] Start: 1940 Medicare Annual Well ness (AWV) Medicare Annual Wellness (AWV) [facility] Immunizations Immunization Date Immunization Notes Care Provider Fa [facility] 12-20-2022 Influenza, Seasonal, Quadrivalent, Adjuvanted Hector Echeverria MD Work Phone: [facility] 03-09-2022 Influenza, High-dose Seasonal, Quadrivalent, Preservative Free Hector Echeverria MD Work Phone: [facility] 01-14-2022 Influenza, High-dose Seasonal, Quadrivalent, Preservative Free Hector Echeverria MD Work Phone: [facility] 01-04-2021 Influenza, High-dose Seasonal, Quadrivalent, Preservative Free Hector Echeverria MD Work Phone: [facility] 12-10-2020 tetanus toxoid, redu gloria diphtheria toxoid, and acellular pertussis vaccine, adsorbed Hector Echeverria MD Work Phone: [facility] 12-30-2019 influenza, high dose seasonal, preservative-free Hector Echeverria MD Work Phone: [facility] 12-30-2019 Influenza, High-dose Seasonal, Quadrivalent, Preservative Free Hector Echeverria MD Work Phone: [facility] 02-07-2019 pneumococcal conjuga te vaccine, 13 valent Hector Echeverria MD Work Phone: [facility] 01-16-2019 Influenza, injectabl e, Madin [place] Canine Kidney, quadrivalent with preservative Hector Echeverria MD Work Phone: [facility] 01-03-2018 influenza, high dose seasonal, preservative-free Hector Echeverria MD Work Phone: [facility] 01-03-2018 Influenza, High-dose Seasonal, Quadrivalent, Preservative Free Hector Echeverria MD Work Phone: [facility] 12-07-2016 influenza, injectabl e, quadrivalent, preservative free Hector Echeverria MD Work Phone: [facility] 12-07-2016 pneumococcal polysaccharide vaccine, 23 valmaurice Echeverria MD Work Phone: [facility] 02-09-2016 influenza, high dose seasonal, preservative-free Hector Echeverria MD Work Phone: [facility] 02-13-2014 pneumococcal polysaccharide vaccine, 23 valmaurice Echeverria MD Work Phone: [facility] 01-20-2014 seasonal influenza, intradermal, preservative free Hector Echeverria MD Work Phone: [facility] Payers Date Payer Category Payer Unknown AARP AARP [id number] 2022-Present [address] [place] [address] [id number] 2003 Medicare MEDICARE MEDICAR E PART B [id number] 2003-Present [address] [address] [place] [address] Medicare [id number] 1959 Medicare [id number] 1959 Self-pay 1959 Unknown [id number] 1940 Unknown [id number] 1940 Unknown [id number] 1940 Unknown [id number] Unknown [id number] Social History Date Type Detail Facility Start: 01-13-2023 Tobacco smoking stat [facility] Never smoked tobacco [facility] Start: 05-11-2023 Alcohol intake Lifetime non-d juan (finding) [facility] Start: 01-26-2023 History of Social function [facility] Start: 01-26-2023 Tobacco use panel [facility] Start: 1940 Sex Assigned At Not on file [facility] Progress note 01-16-2023 Note Date & Type Note Facility 01-16-[address] angiogram in 1 ye ar. Continue risk factors modification. [facility] Progress note 01-16-2023 Note Date & Type Note Facility 01-16-2023 Note Subjective Patient ID: Obinna Strak is a 82 y.o. male who presents [...] past 36 hour(s)). No follow-ups on file. [facility] Progress note 11-18-2022 Note Date & Type Note Facility 11-18-2022 Note [place] [facility] Myesha Stark is a 82 y.o. [...] s/p revascularization of his lower extremities: 04/25/2016: [employer] [facility] and drug eluting Zilver PTX stents of the right SFA total occlusion 03/24/2016: [employer] [facility] and drug eluting Zilver PTX stents and [...] Legacy Encounter on (more content not included)... [facility] Progress note 05-17-2022 Note Date & Type [...] s/p revascularization of his lower extremities: 04/25/2016: [employer] [facility] and drug eluting [employer]ilver PTX stents of the right SFA total occlusion 03/24/2016: [employer] [facility] [employer] and drug eluting [employer]ilver PTX stents and [...] hepatic veins, findi (more content not included)... [facility] Progress note 05-17-2022 Note Date & Type Note Facility 05-17-2022 Note Patient here for 6 m o follow up CAD, hypertension, PAD, and AAA. He sees [place] [facility]. Had echo in Dec 2021. [...] All other systems reviewed and are negative. [facility] Summary Purpose Family History No Family History Records FoundNo Family History Records FoundNo Family History Records Found Advance Directives No Advanced Directives Records FoundNo Advanced Directives Records FoundNo Advanced Directives Records Found Additional Source Comments (unrecognized sect ion and content) No Status Records FoundNo Status Records FoundNo Status Records Found INFORMATION SOURCE (unrecogn ized section and content) DATE CREATED AUTHOR 12/29/2020 [facility] DATE CREATED AUTHOR AUTHOR'S ORGANIZ ATION 05/23/2022 [facility] DATE CREATED AUTHOR AUTHOR'S ORGANIZ ATION 01/27/2023 [facility] Care Teams (unrecognized sec tion and content) Tableau Developer Relationship Specialty Start Date End Date Hector Echeverria MD [address] [facility] [address] [place] [address] PCP - General Internal Medicine 08/09/22 FOR [...] BE BASED ON THE PRIMARY CLINICAL RECORDS. [employer] provides no warranty or guarantee of the accuracy or completeness of information in this document.
[2023-05-22 09:59] LABS: Basophils Percent Auto 0.1 % (0.2-2.0); Eosinophils Absolute Auto 0.1 10^3/uL (0.0-0.7); Eosinophils Percent Auto 1.3 % (0.9-7.0); Hemoglobin 15.6 g/dL (14.0-18.0); Immature Granulocytes Abs Auto 0.01 10^3/uL (0.00-0.03); Immature Granulocytes Pct Auto 0.1 % (0.0-0.5); Lymphocytes Percent Auto 29.7 % (20.5-60.0); Mean Corpuscular HGB Conc 33.9 g/dL (29.9-35.2); Mean Corpuscular Hemoglobin 30.2 pg (25.9-34.0); Mean Platelet Volume 11.3 fL (9.5-13.5); Monocytes Absolute Auto 0.6 10^3/uL (0.3-0.8); Monocytes Percent Auto 9.6 % (1.7-12.0); Neutrophils Percent Auto 59.2 % (43.0-75.0); Platelet Count 190 10^3/uL (150-450); Red Blood Count 5.17 10^6/uL (4.70-6.10); Red Cell Distribution Width 13.4 % (11.0-15.0); White Blood Count 6.7 10^3/uL (4.0-11.0)
[2023-05-22 10:01] LABS: Alanine Aminotransferase 23 U/L (16-63); Albumin Level 3.7 g/dL (3.4-5.0); Alkaline Phosphatase 84 U/L (46-116); Aspartate Amino Transferase 18 U/L (15-37); BUN Creatinine Ratio 20.3; Bilirubin Total 0.4 mg/dL (0.2-1.0); Calcium 8.9 mg/dL (8.5-10.1); Carbon Dioxide 28.4 mmol/L (21.0-32.0); Chloride 98 mmol/L (98-107); Chol HDL Ratio 2.2; Cholesterol 139 mg/dL (<=200); Estimated GFR (African America >60 (>=60); Estimated GFR (Non-African Ame >60 (>=60); Globulin 3.8 g/dL; Glucose 115 mg/dL (74-106); HDL Cholesterol 62 mg/dL (40-60); Potassium 4.4 mmol/L (3.5-5.1); Sodium 134 mmol/L (136-145); Total Protein 7.5 g/dL (6.4-8.2); Triglycerides 41 mg/dL (<=150); VLDL CHOLESTEROL 8.2 mg/dL
== END 2023-05-22 09:08 | disposition home or self-care (01) ==
LOC: LAB 09:07
PROVIDERS: PCP Internal Medicine; Visit Provider Internal Medicine Interventional Cardiology
DX: I25.10 Atherosclerotic heart disease of native coronary artery without angina pectoris (principal)
CPT/HCPCS: 36415; 80053; 80061; 85025

== ENCOUNTER 2023-06-06 08:32 | Outpatient (OUT) | payer MEDICARE, SELFPAY ==
--- NOTE | 2023-06-06 07:45 | NM_ITS ---
Patient Name: MARLI STARK MR#: [id number] : 1940 Exam Date: 06/06/2023 Ordering Doctor: BENITA PANCHAL CNP RADIOLOGY REPORT PROCEDURE: NM SOLO PERF SPECT REST STR COMPARISON: None. INDICATIONS: DYSPNEA TECHNIQUE: Exam Description: Stress/Rest one day protocol gated SPECT Rest Imagin.8 mCi Tc-99m Cardiolite IV on 06/06/2023 Stress Imaging 30.2 mCi Tc-99m Cardiolite IV on 06/06/2023 Exercise Protocol: 0.4 mg Lexiscan given IV Heart Rate (bpm): Rest: 80 Max: 96 PMHR: 70 Blood Pressure: Rest: 146/72 Max: 146/72 Symptoms: Rest and peak stress ECG findings were normal and the exercise portion of the study was normal per attending physician Dr. Braswell . For more details please see separate cardiac stress test report. FINDINGS: QUALITY OF STUDY: PERFUSION DEFECT: LOCATION: Basal inferoseptal. Basal inferior. Mid-inferoseptal. Mid-inferior. Apical inferior. Carter. SIZE: Large (5 or more segments). SEVERITY: Moderate. TYPE: Persistent. WALL MOTION: Mild hypokinesis: LV SIZE: Normal. 101 mL. TID / TCD: None; 0.8 LVEF: Normal. Calculated EF 60%. SUMMARY: Myocardial perfusion imaging study has ABNORMAL findings. CONCLUSION: 1. 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 No reversible ischemia 3. Normal exercise test Dictated by: Michael Kunz MD on 06/07/2023 at 12:39 Approved by: Michael Kunz MD on 06/07/2023 at 12:47
--- OUTSIDE RECORDS SUMMARY | 2023-06-06 08:34 | XMS_ITS | CCD ---
Author Name Unknown Address [address] [place] [id number] Organization [facility] Care Team Providers Care Coiler Name Role Phone MISC, DR JOYCE Admitting Unavailable PAOLO, DR JOYCE Attending Unavailable BIRDIE, DR VANESSA Primary Care Unavailable PAOLO, DR JOYCE Consulting Unavailable BENITA PANCHAL Admitting Unavailable BENITA PANCHAL Attending Unavailable BIRDIE, DR VANESSA Primary Care Unavailable BENITA PANCHAL Consulting Unavailable DESMOND, DR DYSON Admitting Unavailable DESMOND, DR DYSON Attending Unavailable BIRDIE, DR VANESSA Primary Care Unavailable DESMOND, DR DYSON Consulting Unavailable BIRDIE, DR VANESSA Admitting Unavailable BIRDIE, DR VANESSA Attending Unavailable BIRDIE, DR VANESSA Primary Care Unavailable Hector Echeverria MD Primary Care Provider [phone] KARIS LOGAN Attending Unavailable MABER CHI Attending Unavailable AMBER CHI Referring Unavailable BENITA PANCHAL Attending Unavailable Allergies Allergy Classification Reported Allergen(s) Allergy Type Date of Onset Reaction(s) Facility (1 source) Dextroamphetamine Drug Allergy 03-03-[address] [facility] Repository (1 source) rofecoxib Drug Allergy 04-03-[address] [facility] Repository (2 sources) atorvastatin; Translations: [ATORVASTATIN] Drug Allergy 01-06-20 22 [facility] Healthcare (2 sources) rofecoxib; Translations: [ROFECOXIB] Drug Allergy 03-21-20 14 GI bleeding, Other, Unknown [facility] Healthcare Medications Current Medications Medication Drug Class(es) Dates [...] tablet (1 source) Serotonin Reuptake Inhibitor Start: take 1 tablet by mouth once daily citalopram (CeleXA) 20 MG tablet Indications: Other specified anxiety disorders TAKE 1 TABLET BY MOUTH EVERY DAY FOR 30 DAYS 90 tablet 3 12/21/2022 Active clopidogrel 75 mg oral tablet (1 source) P2Y12 Platelet Inhibitor Start: take 1 tablet by mouth once daily [...] ophthalmic solution (1 source) Prostaglandin Analog Start: take 1 drop(s) into the eye(s) once daily at bedtime latanoprost (Xalatan) 0.005 % ophthalmic solution PLACE 1 DROP INTO BOTH EYES ONCE A DAY AT BEDTIME 0 11/03/2022 Active lisinopril 5 mg oral tablet (1 source) Angiotensin Converting Enzyme Inhibitor Start: take 1 tablet by mouth once daily [...] atherosclerosis and other heart disease (3 sources) Coronary atherosclerosis; Translations: [Atherosclerotic heart disease of [place] coronary artery without angina pectoris] Onset: 3 09-20-2022 Chronic Disorders of lipid metabolism (1 source) [...] and arterioles, unspecified] Onset: 3 09-20-2022 Chronic Other circulatory disease (2 sources) Disorder of arteries and arterioles, unspecified; Translations: [Disorder of arteries and arterioles, unspecified] Onset: 3 Chronic Other lower respiratory disease (2 sources) Other forms of dyspnea; Translations: [Other forms of dyspnea] Onset: 4 Episodic Peripheral and visceral atherosclerosis (3 sources) Peripheral vascular disease; Translations: [Peripheral vascular disease, unspecified] Onset: 3 09-20-2022 Chronic Spondylosis; intervertebral disc disorders; other back problems (1 source) Cervical arthritis; Translations: [Spondylosis without myelopathy or radiculopathy, cervical region] Onset: 3 09-20-2022 Chronic Substance-related disorders (3 sources) Nicotine dependence; Translations: [Nicotine dependence, unspecified, uncomplicated] Onset: 2 09-20-2022 Chronic Unclassified (1 source) Abdominal aortic aneurysm, without rupture, unspecified; Translations: [Abdominal aortic aneurysm, without rupture, unspecified] Onset: 3 Unclassified (1 source) Infrarenal abdominal aortic aneurysm, without rupture; Translations: [Infrarenal abdominal aortic aneurysm, without rupture] Onset: Past or Other Problems Problem Classification Problem [...] [SHORTNESS OF BREATH] Onset: 12-08-2021 Episodic Other non-traumatic joint disorders (1 source) [...] Name Value Interpretation Reference Range Facil ity Office Visiton 05-25-2023 Follow-up visit [id number] Obinna Stark 1940 M Date Provider Department Center 05/25/2023 Karo-BENITA PANCHAL [facility] Family History Problem Relation Age of Onset Diabetes Mother Family Status - Relation Status Age at Mother Level of Service:63301 [place] OFFICE/OUTPATIENT ESTABLISHED MOD MDM 30 MIN Reason for Visit and Comments: Coronary Artery Disease [187] Shortness of Breath [754340] Normal [facility] CTA ABDOMEN PELVIS W AND/OR WO IV [...] prostate suggesting BPH. Electronically signed: Jodi Lakhani. [facility] Follow-Upon 01-16-2023 Follow-Up [id number] Obinna Stark 1940 M Date Provider Department Center 01/16/2023 AMBER HILLIARD [place] [facility] Family History Problem Relation Age of Onset Diabetes Mother Family Status - Relation Status Age at Mother Level of Service:22381 [place] OFFICE/OUTPATIENT ESTABLISHED MOD [facility] 30-39 MIN Reason for Visit and Comments: Follow-up [800742] - Yearly fu AAA [facility] Office Visiton 11-18-2022 Follow-up visit [id number] Obinna Stark 1940 Date Provider Department Center 11/18/2022 KARIS GAN [facility] Family History Problem Relation Age of Onset Diabetes Mother Family Status - Relation Status Age at Mother Level of Service:13727 [place] OFFICE/OUTPATIENT ESTABLISHED MOD [facility] 30-39 MIN Reason for Visit and Comments: Follow-up [423835] - 6 month follow up [facility] CREATININEon 12-29-2021 Creatinine [Mass/Vol] 0.70 mg/dL Normal 0.70-1.[address] [facility] Comment on above: Performed By: #### C DES #### [facility] [address] [address] [address] Ila Chambers EGFR-AF SERBIAN >60 Normal >=60 [facility] Comment on above: Performed By: #### C DES #### [facility] [address] [address] [address] Ila Chambers EGFR-NON AF SERBIAN >60 Normal >=60 [facility] Comment on above: Performed By: #### C DES #### [facility] [address] [address] [address] Ila Chambers ECHOCARDIO M/2D COMPLETEon 0 12-08-2021 ECHOCARDIO M/2D COMPLETE Patient: OBINNA STARK Exam Date: 12/08/2021 : 1940 Gender:M Ordering : DR KARIS LOGAN M.D. Admission #: [id number] Family : DR HECTOR ECHEVERRIA M.D. Order #: [id number] CLICK HERE TO VIEW EXAM ECHOCARDIOGRAM REPORT [...] Logan M.D. on 12/08/2021 at 18:35 Normal [facility] PROF CHEM 8 (BAS METB)on Anion gap [Moles/Vol] 10.7 mmol/L Normal [facility] Comment on above: Performed By: #### B MP #### [facility] [address] [place] [address] Dr. Ila Chambers Calcium [Mass/Vol] 8.2 mg/dL Critically low 8.4-10.2 [facility] Comment on above: Performed By: #### B MP #### [facility] [address] [place] [address] Dr. Ial Chambers Chloride [Moles/Vol] 100 mmol/L Normal 98-107 [facility] Comment on above: Performed By: #### B MP #### [facility] [address] [place] [address] Dr. Ila Chambers CO2 [Moles/Vol] 28.9 mmol/L Normal 22.0-30.0 [facility] Comment on above: Performed By: #### B MP #### [facility] [address] [place] [address] Dr. Ila Chambers Creatinine [Mass/Vol] 0.79 mg/dL Normal 0.66-1.25 [facility] Comment on above: Performed By: #### B MP #### [facility] [address] [place] [address] Dr. Ila Chambers EGFR-AF SERBIAN >60 Normal >=60 [facility] Comment on above: Performed By: #### B MP #### [facility] [address] [place] [address] Dr. Ila Chambers EGFR-NON AF SERBIAN >60 Normal >=60 [facility] Comment on above: Performed By: #### B MP #### [facility] [address] [place], [place] [address] Dr. Ila Chambers Glucose [Mass/Vol] 98 mg/dL Normal 74-106 [facility] Comment on above: Performed By: #### B MP #### [facility] [address] [place], [place] [address] Dr. Ila Chambers Potassium [Moles/Vol] 3.6 mmol/L Normal 3.4-5.0 [facility] Comment on above: Performed By: #### B MP #### [facility] [address] [address] [address] Ila Chambers Sodium [Moles/Vol] 136 mmol/L Critically low 137-145 Th [facility] Comment on above: Performed By: #### B MP #### [facility] [address] [address] [address] Ila Chambers Urea nitrogen [Mass/Vol] 11.0 mg/dL Normal 9.0-20.0 [facility] Comment on above: Performed By: #### B MP #### [facility] [id number] Ila Chambers Urea nitrogen/Creatinin e [Mass ratio] 13.9 mg/mg Normal [facility] Comment on above: Performed By: #### B MP #### [facility] [address] [address] [address] Ila Chambers CTA ABDOMEN AND PELVISon CTA ABDOMEN AND PELVIS [facility] Department of Radiology [address] [place] [id number] ======== Patient Name: OBINNA STARK : 1940 Sex: M Age: Race: White Pt. Location: 75 Patient Status: D Ordered Date: 11/05/2020 3:00:00 [...] achievable Electronically signed: Jodi Lakhani. Transcribed by: [email or web address], User Resident: Electronically Signed by: JODI LAKHANI @ 12/27/2020 10:59 AM Normal [facility] Comment on above: Order Comment: , , = ========= , Ordering Provider - AMBER CHI MD , Encounters Encounter Date Encounter Type Care Provider Facility Start: 05-25-2023 End: 05-25-2023 [facility] Start: 05-11-2023 Chart abstracting Hector dean MD Work Phone: [facility] Start: 01-16-2023 ambulatory [facility] Start: 01-16-2023 End: 01-17-2023 ambulatory [facility] Start: 11-18-2022 End: 11-18-2022 ambulatory KARIS MEADOWSRAJENDRA [facility] Start: 05-23-[address] HECTOR ECHEVERRIA Facilit y:H1 Start: 12-29-2021 End: 12-30-[address] DOCTOR BOONE Facility:[facility]1 Start: 12-08-2021 End: 12-09-[address] KARIS LOGAN Facility:[facility] Start: 06-03-2021 End: 06-04-2021 ambulatory BENITA PANCHAL Facility:[facility]1 Plan of Treatment Date Care Activity Detail Author Start: 01-29-2024 End: 01-29-2024 Patient encounter procedure 01/29/2024 11:35 AM EDT Office Visit [facility] [address] [place] [address] Sri Montoya, [employer] [address] [place] [address] [facility] Start: 05-15-2023 End: 05-15-2023 Patient encounter procedure 05/15/2023 1:00 PM EST Office Visit [facility] [address] [place] [address] Hector Echeverria MD [address] [place] [address] [facility] Start: 1940 Medicare Annual Well ness (AWV) Medicare Annual Wellness (AWV) [facility] Immunizations Immunization Date Immunization Notes Care Provider Fa cili 12-20-2022 Influenza, Seasonal, Quadrivalent, Adjuvanted Hector Echeverria MD Work Phone: [facility] 12-07-2022 Influenza, High-dose Seasonal, Quadrivalent, Preservative Free Hector Echeverria MD Work Phone: [facility] 01-14-2022 Influenza, High-dose Seasonal, Quadrivalent, Preservative Free Hector Echeverria MD Work Phone: [facility] 01-04-2021 Influenza, High-dose Seasonal, Quadrivalent, Preservative Free Hector Echeverria MD Work Phone: [facility] 12-10-2020 tetanus toxoid, redu gloria diphtheria toxoid, and acellular pertussis vaccine, adsorbed Hector Echeverria MD Work Phone: [facility] 12-30-2019 influenza, high dose seasonal, preservative-free Hector Echeverria MD Work Phone: [facility] 12-30-2019 Influenza, High-dose Seasonal, Quadrivalent, Preservative Free Hector Echeverria MD Work Phone: [facility] 02-07-2019 pneumococcal conjuga te vaccine, 13 valent Hector Echeverria MD Work Phone: [facility] 01-16-2019 Influenza, injectabl e, Madin [place] Canine Kidney, quadrivalent with preservative Hector Echeverria MD Work Phone: [facility] 01-03-2018 influenza, high dose seasonal, preservative-free Hector Echeverria MD Work Phone: [facility] 01-03-2018 Influenza, High-dose Seasonal, Quadrivalent, Preservative Free Hector Echeverria MD Work Phone: [facility] 12-07-2016 influenza, injectabl e, quadrivalent, preservative free Hector Echeverria MD Work Phone: [facility] 12-07-2016 pneumococcal polysaccharide vaccine, 23 valmaurice Echeverria MD Work Phone: [facility] 02-09-2016 influenza, high dose seasonal, preservative-free Hector Echeverria MD Work Phone: [facility] 02-13-2014 pneumococcal polysaccharide vaccine, 23 valmaurice Echeverria MD Work Phone: [facility] 01-20-2014 seasonal influenza, intradermal, preservative free Hector Echeverria MD Work Phone: [facility] Healthcare Payers Date Payer Category Payer Unknown AARP AARP [id number] 2022-Present [address] [place] [address] [id number] 2003 Medicare MEDICARE MEDICAR E PART B [id number] 2003-[place] [address] Medicare [id number] 1959 Medicare [id number] 1959 Self-pay 1959 Unknown [id number] 1940 Unknown [id number] 1940 Unknown [id number] 1940 Unknown [id number] Unknown [id number] Social History Date Type Detail Facility Start: 01-13-2023 Tobacco smoking stat [facility] Never smoked tobacco [facility] Start: 05-11-2023 Alcohol intake Lifetime non-d juan (finding) [facility] Start: 01-26-2023 History of Social function [facility] Start: 01-26-2023 Tobacco use panel [facility] Healthcare Start: 1940 Sex Assigned At Not on file [facility] Progress note 05-25-2023 Note Date & Type Note Facility 05-25-2023 Note Patient here for 6 m o follow up PVD, CAD, AAA, and hypertension. Has been doing PAD rehab twice a week. Had routine labs a few days ago. States his SOTO is unchanged. Denies chest pain, palpitations, and lightheadedness. Review of Systems Cardiovascular: Positive for dyspnea on exertion. All other systems reviewed and are negative. [facility] Progress note 05-25-2023 Note Date & Type Note Facility 05-25-2023 Note [place] [facility] Myesha Stark is a 82 y.o. year old male patient being seen for Coronary Artery Disease and Shortness of Breath Patient Active Problem List Diagnosis AAA (abdominal aortic aneurysm) (CMS/HCC) Smoking greater than 20 pack years Acute sinusitis Coronary atherosclerosis Gallstone Neck pain Peripheral vascular disease (CMS/HCC) Tobacco dependence syndrome Tuberculosis Abdominal aortic aneurysm (CMS/HCC) Arthritis of right acromioclavicular joint Adjustment disorder, unspecified Anxiety state Benign essential hypertension Cervical spine arthritis Claustrophobia Constipation Gastro-esophageal reflux disease without esophagitis COPD (chronic obstructive pulmonary disease) (CMS/HCC) Generalized osteoarthrosis, involving multiple sites Hypercholesterolemia Osteoarthritis of right hip Peripheral arterial occlusive disease (CMS/HCC) 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 No rest leg pain. 05/24/2023 He c/o SOB. He's noticed this is worsened, he will get SOB with minimal exertion. He has had trouble with cutting his grass this past year. It use to take him 1 hour now it takes him all day. He goes to cardiac rehab 2 days a week. He states they tell him his BP is doing great. Denies CP, orthopnea, PND, LE edema, dizziness/LH, palpitations. He c/o foot pain. He continues to smoke. Review of Systems Constitutional: Negative for chills, decreased appetite, fever, malaise/fatigue and weight gain. Cardiovascular: Positive for dyspnea on exertion. Negative for chest pain, irregular heartbeat, leg swelling, near-syncope, orthopnea, palpitations, paroxysmal nocturnal dyspnea and syncope. Hematologic/Lymphatic: Negative for bleeding problem. Does not bruise/bleed easily. Musculoskeletal: Positive for arthritis. Objective Visit Vitals BP 118/60 (BP Location: Left arm, Patient Position: Sitting) Pulse 74 Ht 1.791 m (5' 10.5 ) Wt 75.8 kg (167 lb) SpO2 99% BMI 23.62 kg/m??? Smoking Status Every Day BSA 1.94 m??? Physical Exam Constitutional: Appearance: He is [...] Judgment: Judgment normal. Allergies Allergies Allergen Reactions Rofecoxib Unknown and Other Internal bleeding Atorvastatin Other Medications Current Outpatient Medications: amLODIPine (Norvasc) 10 mg tablet, TAKE 1 TABLET BY MOUTH EVERY DAY, Disp: 90 tablet, Rfl: 3 citalopram (CeleXA) 20 mg tablet, TAKE 1 TABLET BY MOUTH EVERY DAY FOR 30 DAYS, Disp: , Rfl: clopidogrel (Plavix) 75 mg tablet, Take 75 mg by mouth (more content not included)... [facility] Progress note 01-16-2023 Note Date & Type Note Facility 01-16-[address] angiogram in 1 ye ar. Continue risk factors modification. [facility] Progress note 01-16-2023 Note Date & Type [...] This Visit Circulatory AAA (abdominal aortic aneurysm) ([facility]) - Primary CT angiogram in 1 year. Continue risk factors modification. Diagnosis Plan 1. Infrarenal abdominal aortic aneurysm (AAA) without rupture (CMS/HCC) No orders of the defined types were placed in this encounter. No results found for this or any previous visit (from the past 36 hour(s)). No follow-ups on file. [facility] Progress note 11-18-2022 Note Date & Type Note Facility 11-18-2022 Note [place] [facility] Myesha Stark is a 82 y.o. 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 [facility] Summary Purpose Family History No Family History Records FoundNo Family History Records FoundNo Family History Records Found Advance Directives No Advanced Directives Records FoundNo Advanced Directives Records FoundNo Advanced Directives Records Found Additional Source Comments (unrecognized sect ion and content) No Status Records FoundNo Status Records FoundNo Status Records Found INFORMATION SOURCE (unrecogn ized section and content) DATE CREATED AUTHOR 12/29/2020 [facility] DATE CREATED AUTHOR AUTHOR'S ORGANIZ ATION 05/23/2022 [facility] DATE CREATED AUTHOR AUTHOR'S ORGANIZ ATION 06/02/2023 [facility] Care Teams (unrecognized sec tion and content) Coiler Relationship Specialty Start Date End Date Hector Echeverria MD [address] [facility] [address] [place] [address] PCP - General Internal Medicine 08/09/22 FOR [...] BE BASED ON THE PRIMARY CLINICAL RECORDS. [facility] [employer] [facility]. provides no warranty or guarantee of the accuracy or completeness of information in this document.
--- NOTE | 2023-06-06 09:00 | CA_ITS ---
Patient Name: MARLI STARK MR#: [id number] : 1940 Exam Date: 06/06/2023 Ordering Doctor: BENITA PANCHAL CNP ECHOCARDIOGRAM REPORT PROCEDURE: CA ECHO DOPPLER COMPLETE INDICATIONS: Dyspnea COMPARISON: None. DESCRIPTION: COMPLETE ECHOCARDIOGRAM Real-time transthoracic echocardiography with 2D, M-mode, spectral and color flow Doppler performed. QUALITY: Technical quality was good. LEFT VENTRICLE: Normal chamber size. Borderline left ventricular hypertrophy. Global left ventricular systolic function is at the lower limits of normal. Abnormal septal motion, likely due to bundle branch block. LV EF: Estimated left ventricular ejection fraction is 50-55 %. DIASTOLIC: Diastolic function is indeterminate. ATRIAL SEPTUM: LEFT ATRIUM: Mild dilatation. RIGHT ATRIUM: Moderate dilatation. RIGHT VENTRICLE: Mild chamber dilatation. Normal right ventricular systolic function. TRICUSPID VALVE: Normal mobility and thickness. No stenosis with mild regurgitation. No evidence of pulmonary hypertension. RVSP 31 mmHg MITRAL VALVE: Normal mobility and thickness. No evidence of mitral valve stenosis. There is no mitral annular calcification. Trivial mitral regurgitation. AORTIC VALVE: Normal trileaflet appearance. Mildly calcified aortic valve. Normal leaflet mobility. No evidence of aortic valve stenosis. No aortic regurgitation. AORTIC ROOT: Normal diameter and appearance. PULMONIC VALVE: Normal thickness and mobility. No stenosis. Trivial regurgitation. PERICARDIUM: No evidence of pericardial effusion. IVC: Collapses with inspirations. Normal size. PLEURA: CONCLUSION: 1. Left ventricular systolic function is at the lower limits of normal. LVEF is 50 to 55%. 2. Mildly dilated right ventricle with normal systolic function. 3. Mild to moderate biatrial dilatation. 4. Mild tricuspid regurgitation. 5. Normal right-sided pressures. Adult Echocardiography Procedure Report Left Ventricle LVEDD (3.7 - 5.6 cm): 4.47 cm LVESD (2.2 - 4.0 cm): 3.41 cm LVIVS thickness (0.6 - 1.2 cm): 0.93 cm LVPW thickness (0.5 - 1.0 cm): 1.13 cm e': 0.07 m/s E - e': 9.90 LVOT Max Gradient: 2.60 mm[Hg], 2.84 mm[Hg] LVOT Area (cm2): 0.82 m/s Peak Velocity (LVOT): 0.81 m/s, 0.84 m/s Mean Velocity (LVOT): 0.51 m/s LVOT Diameter 2.31 cm Left Ventricular Ejection Fraction: 61.26 % Left Atrium LA Volume Index (2D A2C): 38.75 ml/m2 Left Atrium Systolic Dimension: 2.75 cm Mitral Valve MV E to A Ratio: 0.70 Mitral Valve A-Wave Peak Velocity: 0.93 m/s Mitral Valve E-Wave Peak Velocity: 0.65 m/s Right Ventricle RV Internal Diastolic Dimension: 3.78 cm Aorta AO Root Diam: 3.51 cm Ascending Ao Diam: 2.45 cm Aortic Valve AoV Area (Peak Pascual): 2.79 cm2, 2.73 cm2 AoV Area (VTI): 2.82 cm2, 2.98 cm2 Peak Velocity(Antegrade Flow): 1.24 m/s Peak Gradient(Antegrade Flow): 6.15 mm[Hg] Mean Velocity(Antegrade Flow): 0.83 m/s Mean Gradient(Antegrade Flow): 3.12 mm[Hg] Velocity Time Integral: 28.29 cm Tricuspid Valve Peak Velocity (Regurgitant Flow): 2.67 m/s, 2.57 m/s, 2.62 m/s Pulmonic Valve Mean Gradient: 1.86 mm[Hg] Mean Velocity: 0.61 m/s Peak Velocity: 1.02 m/s, 0.99 m/s Peak Gradient: 3.88 mm[Hg], 4.20 mm[Hg] Right Atrium Right Atrium Systolic Pressure: 102.67 ml, 102.67 ml Dictated by: Guanakito Restrepo M.D. on 06/06/2023 at 16:25 Approved by: Guanakito Restrepo M.D. on 06/06/2023 at 16:30
[2023-06-06] MEDS: REGADENOSON 0.4 MG/5 ML SYRINGE 0.400000000000000022 MG IV (09:37)
== END 2023-06-06 08:33 | disposition home or self-care (01) ==
LOC: NM 08:32
PROVIDERS: PCP Internal Medicine; Visit Provider Nurse Practitioner Family
DX: R06.09 Other forms of dyspnea (principal)
CPT/HCPCS: 78452; 93017; 93306; A9500; J2785

== ENCOUNTER 2023-06-30 08:55 | Outpatient (OUT) | payer MEDICARE, SELFPAY ==
--- OUTSIDE RECORDS SUMMARY | 2023-06-30 09:17 | XMS_ITS | CCD ---
Author Organization [facility] Care Team Providers Care Mesh Cutter Name Role Phone MISC, DR JOYCE Admitting [...] Unavailable Hector Echeverria MD Primary Care Provider KARIS LOGAN Attending Unavailable AMBER CHI Attending Unavailable AMBER CHI Referring Unavailable BENITA PANCHAL Attending Unavailable Allergies Allergy Classification Reported Allergen(s) Allergy Type Date of Onset Reaction(s) Facility (1 source) Dextroamphetamine Drug Allergy 03-03-20 15 [facility] (1 source) rofecoxib Drug Allergy 04-03-19 00 [facility] (2 sources) atorvastatin; Translations: [ATORVASTATIN] Drug Allergy 01-06-20 22 [facility] (2 sources) rofecoxib; Translations: [ROFECOXIB] Drug Allergy 03-21-20 14 GI bleeding, Other, Unknown [facility] Medications Current Medications Medication Drug Class(es) [...] Coronary atherosclerosis; Translations: [Atherosclerotic heart disease of [place] coronary artery without angina pectoris] Onset: 3 [...] Name Value Interpretation Reference Range Facil ity 36on 06-20-2023 36 Regarding echo and stress test on 06/06/2023: CATHY Flores MA Please let him know I reviewed his testing with Dr. Logan. No ischemia was noted on his stress test so will continue with medical management/medications for his CAD. For his dyspnea, recommend he have PFTs to assess his lung function. Thanks! Spoke with patient and he would like to go forward with PFT's and he also asked about CXR. I told him I'd order both for him. Orders faxed to [facility] Office Visiton 05-25-2023 Follow-up visit [id number] Obinna Stark [place] 1940 M Date Provider Department Center 05/25/2023 Karo-BENITA PANCHAL [facility]ARD [facility] Family History Problem Relation Age of Onset Diabetes Mother Family Status - Relation Status Age at Mother Level of Service:30406 MT OFFICE/OUTPATIENT ESTABLISHED MOD MDM 30 MIN Reason for Visit and Comments: Coronary Artery Disease [187] Shortness of Breath [963000] Normal [facility] CTA ABDOMEN PELVIS W AND/OR WO IV [...] prostate suggesting BPH. Electronically signed: Jodi Lakhani. Normal [facility] Follow-Upon 01-16-2023 Follow-Up [id number] Obinna Stark 1940 [facility] Provider Department Center 01/16/2023 AMBER HILLIARD HVCVASENDO ID HeartVAS Family History Problem Relation Age of Onset Diabetes Mother Family Status - Relation Status Age at Mother Level of Service:75237 MT OFFICE/OUTPATIENT ESTABLISHED MOD MDM 30-39 MIN Reason for Visit and Comments: Follow-up [788389] - Yearly fu AAA Normal [facility] Office Visiton 11-18-2022 Follow-up visit [id number] Obinna Stark 1940 [facility] Provider Department Center 11/18/2022 KARIS GAN [facility] Family History Problem Relation Age of Onset Diabetes Mother Family Status - Relation Status Age at Mother Level of Service:32103 MT OFFICE/OUTPATIENT ESTABLISHED MOD MDM 30-39 MIN Reason for Visit and Comments: Follow-up [955845] - 6 month follow up Normal [facility] CREATININEon 12-29-2021 Creatinine [Mass/Vol] 0.70 mg/dL Normal 0.70-1.30 [facility] Comment on above: Performed By: #### C DES #### [facility] [address] [place] [address] Dr. Ila Chambers EGFR-AF ENGLISH >60 Normal >=60 [facility] Comment on above: Performed By: #### C DES #### [facility] [address] [id number] Ila Chambers EGFR-NON AF ENGLISH >60 Normal >=60 [facility] Comment on above: Performed By: #### C DES #### [facility] [id number] Ila Chambers ECHOCARDIO M/2D COMPLETEon 0 12-08-2021 ECHOCARDIO M/2D COMPLETE Patient: OBINNA STARK Exam Date: 12/08/2021 : 1940 Gender:M Ordering : DR KARIS LOGAN M.D. Admission #: [id number] Family : DR HECTOR ECHEVERRIA M.D. Order #: [id number] CLICK HERE TO VIEW EXAM ECHOCARDIOGRAM REPORT [...] Logan M.D. on 12/08/2021 at 18:35 Normal [facility] PROF CHEM 8 (BAS METB)on Anion gap [Moles/Vol] 10.7 mmol/L Normal [facility] Comment on above: Performed By: #### B MP #### [facility] [address] [address] [address] Ila Chambers Calcium [Mass/Vol] 8.2 mg/dL Critically low 8.4-10.2 [facility] Comment on above: Performed By: #### B MP #### [facility] [address] [address] [address] Ila Chambers Chloride [Moles/Vol] 100 mmol/L Normal 98-107 [facility] Comment on above: Performed By: #### B MP #### [facility] [address] [address] [address] Ila Chambers CO2 [Moles/Vol] 28.9 mmol/L Normal 22.0-30.0 [facility] Comment on above: Performed By: #### B MP #### [facility] [address] [address] [address] Ila Chambers Creatinine [Mass/Vol] 0.79 mg/dL Normal 0.66-1.25 [facility] Comment on above: Performed By: #### B MP #### [facility] [address] [address] [address] Ila Chambers EGFR-AF ENGLISH >60 Normal >=60 [facility] Comment on above: Performed By: #### B MP #### [facility] [address] [address] [address] Ila Chambers EGFR-NON AF ENGLISH >60 Normal >=60 [facility] Comment on above: Performed By: #### B MP #### [facility] [address] [address] [address] Ila Chambers Glucose [Mass/Vol] 98 mg/dL Normal 74-106 [facility] Comment on above: Performed By: #### B MP #### [facility] [address] [address] [address] Ila Chambers Potassium [Moles/Vol] 3.6 mmol/L Normal 3.4-5.0 [facility] Comment on above: Performed By: #### B MP #### [facility] [address] [address] [address] Ila Chambers Sodium [Moles/Vol] 136 mmol/L Critically low 137-145 [facility] Comment on above: Performed By: #### B MP #### [facility] [address] [address] [address] Ila Chambers Urea nitrogen [Mass/Vol] 11.0 mg/dL Normal 9.0-20.0 [facility] Comment on above: Performed By: #### B MP #### [facility] [address] [address] [address] Ila Chambers Urea nitrogen/Creatinin e [Mass ratio] 13.9 mg/mg Normal [facility] Comment on above: Performed By: #### B MP #### [facility] [address] [place], [place] [id number] Dr. Ila Chambers CTA ABDOMEN AND PELVISon CTA ABDOMEN AND PELVIS [facility] Department of Radiology [address] [place] [id number] ======== Patient Name: OBINNA STARK : 1940 Sex: M Age: Race: White Pt. Location: Patient Status: D Ordered Date: 11/05/2020 3:00:00 PM Completed Date: 12/23/2020 10:31 AM Requesting Provider: AMBER CHI Attending Provider: AMBER CHI Report Copy To: HECTOR ECHEVERRIA Signs & Symptoms: I71.4 Abdominal aortic aneurysm, without rupture I10 History: [place] Patient will have labs done closer to [...] achievable Electronically signed: Jodi Lakhani. Transcribed by: [email or web address], User Resident: Electronically Signed by: JODI LAKHANI @ 12/27/2020 10:59 AM Normal [facility] Comment on above: Order Comment: , , = ========= , Ordering Provider - AMBER CHI MD , Encounters Encounter Date Encounter Type Care Provider Facility Start: 05-25-2023 End: 05-25-2023 ambulatory [facility] Start: 05-11-2023 Chart abstracting Hector dean MD Work Phone: [facility] Start: 01-16-2023 ambulatory [facility] Start: 01-16-2023 End: 01-17-2023 ambulatory [facility] Start: 11-18-2022 End: 11-18-[address] [facility] Start: 05-23-[address] HECTOR ECHEVERRIA Facilit y:[facility]1 Start: 12-29-2021 End: 12-30-[address] DOCTOR BOONE Facility:[facility] Start: 12-08-2021 End: 12-09-[address] KARIS LOGAN Facility:[facility] Start: 06-03-2021 End: 06-04-2021 ambulatory [facility] Facility:[facility]1 Plan of Treatment Date Care Activity Detail Author Start: 01-29-2024 End: 01-29-2024 Patient encounter procedure 01/29/2024 11:35 AM EDT Office Visit [facility] [address] [place] [phone] Sri Montoya, SHOW [employer]ICE [address] [place] [address] [facility] Start: 05-15-2023 End: 05-15-2023 Patient encounter procedure 05/15/2023 1:00 PM EST Office Visit [facility] [address] [place] [phone] Hector Echeverria MD [address] [place] [address] [facility] Start: 1940 Medicare Annual Well ness (AWV) Medicare Annual Wellness (AWV) [facility] Healthcare Immunizations Immunization Date Immunization Notes Care Provider Fa cili 12-20-2022 Influenza, Seasonal, Quadrivalent, Adjuvanted Hector Echeverria MD Work Phone: [facility] 03-09-2022 Influenza, High-dose Seasonal, Quadrivalent, Preservative Free Hecotr Echeverria MD Work Phone: [facility] 01-14-2022 Influenza, High-dose Seasonal, Quadrivalent, Preservative Free Hector cEheverria MD Work Phone: [facility] 01-04-2021 Influenza, High-dose Seasonal, Quadrivalent, Preservative Free Hector Echeverria MD Work Phone: [facility] 12-10-2020 tetanus toxoid, redu gloria diphtheria toxoid, and acellular pertussis vaccine, adsorbed Hector Echeverria MD Work Phone: [facility] 12-30-2019 influenza, high dose seasonal, preservative-free Hector Echeverria MD Work Phone: [facility] 12-30-2019 Influenza, High-dose Seasonal, Quadrivalent, Preservative Free Hector Echeverria MD Work Phone: [facility] 02-07-2019 pneumococcal conjuga te vaccine, 13 valent Hector Echeverria MD Work Phone: [facility] 01-16-2019 Influenza, injectabl e, Madin [place] Canine Kidney, quadrivalent with preservative Hector Ecehverria MD Work Phone: [facility] 01-03-2018 influenza, high dose seasonal, preservative-free Hector Echeverria MD Work Phone: [facility] 01-03-2018 Influenza, High-dose Seasonal, Quadrivalent, Preservative Free Hector Echeverria MD Work Phone: [facility] 12-07-2016 influenza, injectabl e, quadrivalent, preservative free Hector Echeverria MD Work Phone: [facility] 12-07-2016 pneumococcal polysaccharide vaccine, 23 valmaurice Echeverria MD Work Phone: [facility] 02-09-2016 influenza, high dose seasonal, preservative-free Hector Echeverria MD Work Phone: [facility] 02-13-2014 pneumococcal polysaccharide vaccine, 23 valmaurice Echeverria MD Work Phone: [facility] 01-20-2014 seasonal influenza, intradermal, preservative free Hector Echeverria MD Work Phone: [facility] Healthcare Payers Date Payer Category Payer Unknown AARP AARP [id number] 2022-Present [address] [place] [address] [id number] 2003 Medicare MEDICARE MEDICAR E PART B [id number] 2003-Present [address] [address] [place] [address] Medicare [id number] 1959 Medicare [id number] 1959 Self-pay 1959 Unknown [id number] 1940 Unknown [id number] 1940 Unknown [id number] 1940 Unknown [id number] Unknown [id number] Social History Date Type Detail Facility Start: 01-13-2023 Tobacco smoking stat [facility] Never smoked tobacco [facility] Start: 05-11-2023 Alcohol intake Lifetime non-d juan (finding) [facility] Start: 01-26-2023 History of Social function [facility] Start: 01-26-2023 Tobacco use panel [facility] Start: 1940 Sex Assigned At Not on file N [facility] Progress note 05-25-2023 Note Date & [...] All other systems reviewed and are negative. [facility] Progress note 05-25-2023 Note Date & Type Note Facility 05-25-2023 Note ID Cardiology - [facility] Myesha Stark is a 82 y.o. [...] s/p revascularization of his lower extremities: 04/25/2016: RANGE MOUNTER and drug eluting Zilver PTX stents of the right SFA total occlusion 03/24/2016: RANGE MOUNTER and drug eluting Zilver PTX stents and [...] mg by mouth (more content not included)... [facility] Progress note 01-16-2023 Note Date & Type Note Facility 01-16-[address] angiogram in 1 ye ar. Continue risk factors modification. [facility] Progress note 01-16-2023 Note Date & [...] past 36 hour(s)). No follow-ups on file. [facility] Progress note 11-18-2022 Note Date & Type Note Facility 11-18-2022 Note ID Cardiology - [facility] Myesha Stark is a 82 y.o. [...] s/p revascularization of his lower extremities: 04/25/2016: RANGE MOUNTER and drug eluting Zilver PTX stents of the right SFA total occlusion 03/24/2016: RANGE MOUNTER and drug eluting Zilver PTX stents and [...] Encounter on 08 (more content not included)... [facility] Summary Purpose Family History No Family History Records FoundNo Family History Records FoundNo Family History Records Found Advance Directives No Advanced Directives Records FoundNo Advanced Directives Records FoundNo Advanced Directives Records Found Additional Source Comments (unrecognized sect ion and content) No Status Records FoundNo Status Records FoundNo Status Records Found INFORMATION SOURCE (unrecogn ized section and content) DATE CREATED AUTHOR 12/29/2020 [facility] DATE CREATED AUTHOR AUTHOR'S ORGANIZ ATION 05/23/2022 [facility] DATE CREATED AUTHOR AUTHOR'S ORGANIZ ATION 06/21/2023 [facility] Care Teams (unrecognized sec tion and content) Mesh Cutter Relationship Specialty Start Date End Date Hector Echeverria MD [address] [facility] [address] [place] [address] PCP - General Internal Medicine 08/09/22 FOR [...] BE BASED ON THE PRIMARY CLINICAL RECORDS. [employer] provides no warranty or guarantee of the accuracy or completeness of information in this document.
--- NOTE | 2023-06-30 10:19 | RT_ITS ---
[facility] Test Date: 2023-06-30 Pat Name: MARLI STARK Department: Room: - Gender: Male Spreader: Robbi Mosqueda RRT : 1940 Requested By: Johanne Saucedo Order Number: [id number] Janine MD: Randolph Rosas Interpretive Statements Pulmonary function testing was completed according to ATS criteria. Findings were considered accurate and reproducible. Both pre- and post-bronchodilator values utilized for spirometry. Due to software limitations, no prior studies (if performed previously) are currently available for comparison. Spirometry (based on pre-bronchodilator values): -FEV1/FVC: Reduced @ 45% -FEV1: Low normal @ 82% -FVC: Normal @ 127% -NVB43-55%: Reduced @ 34% -There is no significant bronchodilator response. Lung volumes by plethysmography (based on pre-bronchodilator values): -RV: High normal @ 118% -TLC: Normal @ 115% Diffusion capacity: -DLCO: Severe reduction @ 41% when corrected for Hb 15.6g/dL Flow-volume loop: -Severe obstructive pattern Impressions: -Spirometry suggests mild obstruction. There is no bronchodilator response. Lung volumes are normal. There is a severely reduced diffusion capacity. Overall study suggests emphysema, though the decreased DLCO appears out of proportion to spirometry - question patient smoked prior to test or other concomitant cardiac or interstitial lung disease is present. Clinical correlation required. Electronically Signed On 07-05-2023 14:02:12 EDT by Randolph Rosas
[2023-06-30] MEDS: ALBUTEROL SULFATE 2.5 MG/3 ML VIAL NEB IH (10:21)
--- NOTE | 2023-06-30 10:52 | XR_ITS ---
The [address] [address] Patient Name: MARLI STARK MRN: [id number] date: 1940 Sex: M Assigned Patient Location: CARD Current Patient Location: Accession/Order Number: [id number] Exam Date: 06/30/2023 11:00 Report Date: 07/01/2023 05:19 At the request of: BENITA PANCHAL Procedure: XR chest 2V EXAMINATION: XR chest 2V HISTORY: Shortness Of Breath R06.02 COMPARISON: XR chest 11/30/2020 FINDINGS: LUNGS: Hyperexpanded lungs with coarsening of the interstitial markings suggestive COPD. No appreciable mass or acute infiltrates. VASCULATURE: No increased pulmonary vasculature. PLEURA: No pneumothorax, effusion, or pleural thickening. CARDIAC: No cardiomegaly or cardiac silhouette abnormality. MEDIASTINUM: No visible mass or adenopathy. BONES: Bone anchors within right humeral head suggesting rotator cuff repair. No acute bone abnormality or bone lesion. OTHER: Negative. XR/XR chest 2V IMPRESSION: 1. Chronic interstitial changes suggestive of COPD. 2. No appreciable acute abnormality. Electronically authenticated by: BEULAH RETANA Date: 07/01/2023 05:19
== END 2023-06-30 08:56 | disposition home or self-care (01) ==
LOC: CARD 08:55
PROVIDERS: PCP Internal Medicine; Visit Provider Nurse Practitioner Family
DX: R06.02 Shortness of breath (principal)
CPT/HCPCS: 71046; 94060; 94726; 94729

== ENCOUNTER 2023-11-21 10:29 | Outpatient (OUT) | payer MEDICARE, SELFPAY ==
--- NOTE | 2023-11-21 10:33 | XR_ITS ---
[address] [address] Patient Name: MARLI STARK MRN: [id number] date: 1940 Sex: M Assigned Patient Location: [facility] Current Patient Location: Accession/Order Number: [id number] Exam Date: 11/21/2023 10:35 Report Date: 11/22/2023 06:37 At the request of: BECK HUSSEIN Procedure: XR ribs LT min 3V w CXR1V EXAMINATION: XR ribs LT min 3V w CXR1V HISTORY: Left Side Rib Pain R07.81 ; posterior left rib pain after injury COMPARISON: XR chest 06/30/2023 FINDINGS: LUNGS: Expanded lungs with chronic interstitial changes and coarsening of interstitial markings. Mild haziness within mid and lower left lung and small opacity within left lateral costal phrenic angle. PLEURA: Trace amount of pleural fluid on left. MEDIASTINUM: No visible mass or adenopathy. CARDIAC: No cardiomegaly or cardiac silhouette abnormality. RIBS: Nondisplaced fracture lateral left seventh rib. OTHER: Negative. XR/XR ribs LT min 3V w CXR1V IMPRESSION: 1. Nondisplaced fracture of lateral left seventh rib. 2. Mild atelectasis or possibly infiltrates within left lung and tiny pleural effusion. No pneumothorax. Electronically authenticated by: BEULAH RETANA Date: 11/22/2023 06:37
--- OUTSIDE RECORDS SUMMARY | 2023-11-21 10:48 | XMS_ITS | CCD ---
Author Organization [facility] Care Team Providers Care Pedal Assembler Name Role Phone PAOLO, DR JOYCE Admitting Unavailable PAOLO, DR JOYCE Attending Unavailable BIRDIE, DR VANESSA Primary Care Unavailable PAOLO, DR JOYCE Consulting Unavailable BENITA PANCHAL Admitting Unavailable BENITA PANCHAL Attending Unavailable BIRDIE, DR VANESSA Primary Care Unavailable BENITA PANCHAL Consulting Unavailable DESMOND, DR DYSON Admitting Unavailable MOGUSTAVO, DR DYSON Attending Unavailable BIRDIE, DR VANESSA Primary Care Unavailable DESMOND, DR DYSON Consulting Unavailable BIRDIE, DR VANESSA Admitting Unavailable BIRDIE, DR VANESSA Attending Unavailable BIRDIE, DR VANESSA Primary Care Unavailable Hector Echeverria MD Primary Care Provider [phone] BENITA PANCHAL Attending Unavailable AMBER CHI Attending Unavailable AMBER CHI Referring Unavailable KARIS LOGAN Attending Unavailable MOKARIS CHEN Attending Unavailable Allergies Allergy Classification Reported Allergen(s) Allergy Type Date of Onset Reaction(s) Facility (1 source) Dextroamphetamine Drug Allergy 03-03-20 15 [facility] Repository (1 source) rofecoxib Drug Allergy 04-03-19 00 [facility] Repository (2 sources) atorvastatin; Translations: [ATORVASTATIN] Drug Allergy 01-06-20 22 [facility] Healthcare (2 sources) rofecoxib; Translations: [ROFECOXIB] Drug Allergy 03-21-20 14 GI bleeding, Other, Unknown [facility] Healthcare Medications Current Medications Medication Drug [...] Coronary atherosclerosis; Translations: [Atherosclerotic heart disease of ewiiaapaayp coronary artery without angina pectoris] Onset: 3 [...] arteries and arterioles, unspecified] Onset: 3 Chronic Peripheral and visceral atherosclerosis (3 sources) [...] dyspnea; Translations: [Other forms of dyspnea] Onset: 05-25-2023 Episodic Other non-traumatic joint disorders (1 source) [...] Interpretation Reference Range Facil ity Office Visiton 09-15-2023 Follow-up visit [id number] Obinna Stark 1940 M Date Provider Department Center 09/15/2023 KARIS GAN [facility] Family History Problem Relation Age of Onset Diabetes Mother Family Status - Relation Status Age at Mother Level of Service:07376 [place] OFFICE/OUTPATIENT ESTABLISHED MOD MDM 30 MIN Normal [facility] Orders Onlyon 08-15-2023 Orders Only [id number] Obinna Stark 1940 M Date Provider Department Center 08/15/2023 [place] [facility] Family History Problem Relation Age of Onset Diabetes Mother Family Status - Relation Status Age at Mother Normal [facility] 36on 06-20-2023 36 Regarding echo and stress [...] order both for him. Orders faxed to [facility]. Normal [facility] Office Visiton 05-25-2023 Follow-up visit [id number] Obinna Stark 1940 M Date Provider Department Center 05/25/2023 BENITA SOTO [facility] Family History Problem Relation Age of Onset Diabetes Mother Family Status - Relation Status Age at Mother Level of Service:55980 [place] OFFICE/OUTPATIENT ESTABLISHED MOD MDM 30 MIN Reason for Visit and Comments: Coronary Artery Disease [187] Shortness of Breath [269874] Normal [facility] CTA ABDOMEN PELVIS W AND/OR WO [...] suggesting BPH. Electronically signed: Jodi Lakhani. Normal [facility] Follow-Upon 01-16-2023 Follow-Up [id number] Obinna Stark 1940 M Date Provider Department Center 01/16/2023 AMBER HILLIARD [facility] [facility] Family History Problem Relation Age of Onset Diabetes Mother Family Status - Relation Status Age at Mother Level of Service:58672 [place] OFFICE/OUTPATIENT ESTABLISHED MOD MDM 30-39 MIN Reason for Visit and Comments: Follow-up [837127] - Yearly fu AAA [facility] Office Visiton 11-18-2022 Follow-up visit [id number] Obinna Stark 1940 M Date Provider Department Center 11/18/2022 [place]-KARIS LOGAN [facility] Family History Problem Relation Age of Onset Diabetes Mother Family Status - Relation Status Age at Mother Level of Service:45868 [place] OFFICE/OUTPATIENT ESTABLISHED MOD MDM 30-39 MIN Reason for Visit and Comments: Follow-up [154196] - 6 month follow up Normal [facility] CREATININEon 12-29-2021 Creatinine [Mass/Vol] 0.70 mg/dL Normal 0.70-1.[address] [facility] Comment on above: Performed By: #### C DES #### [facility] [address] [address] [address] Ila Chambers EGFR-AF OMANI >60 Normal >=60 [facility] Comment on above: Performed By: #### C DES #### [facility] [address] [address] [address] Ila Chambers EGFR-NON AF OMANI >60 Normal >=[address] [facility] Comment on above: Performed By: #### C DES #### [facility] [address] [address] [address] Ila Chambers ECHOCARDIO M/2D COMPLETEon 0 12-08-2021 ECHOCARDIO M/2D COMPLETE Patient: OBINNA STARK Exam Date: 12/08/2021 : 1940 Gender:M Ordering : DR KARIS LOGAN M.D. Admission #: [id number] Family : DR HECTOR ECHEVERRIA M.D. Order #: [id number] CLICK HERE TO VIEW EXAM ECHOCARDIOGRAM REPORT [...] Logan M.D. on 12/08/2021 at 18:[address] [facility] PROF CHEM 8 (BAS METB)on Anion gap [Moles/Vol] 10.7 mmol/L Normal [facility] Comment on above: Performed By: #### B MP #### [facility] [address] [place] [address] Dr. Ila Chambers Calcium [Mass/Vol] 8.2 mg/dL Critically low 8.4-10.2 Th e [facility] Comment on above: Performed By: #### B MP #### [facility] [address] [address] [address] Ila Chambers Chloride [Moles/Vol] 100 mmol/L Normal 98-[address] [facility] Comment on above: Performed By: #### B MP #### [facility] [address] [address] [address] Ila Chambers CO2 [Moles/Vol] 28.9 mmol/L Normal 22.0-30.0 [facility] Comment on above: Performed By: #### B MP #### [facility] [address] [address] [address] Ila Chambers Creatinine [Mass/Vol] 0.79 mg/dL Normal 0.66-1.[address] [facility] Comment on above: Performed By: #### B MP #### [facility] [address] [place] [address] Dr. Ila Chambers EGFR-AF OMANI >60 Normal >=60 [facility] Comment on above: Performed By: #### B MP #### [facility] [address] [address] [address] Ila Chambers EGFR-NON AF OMANI >60 Normal >=[address] [facility] Comment on above: Performed By: #### B MP #### [facility] [address] [address] [address] Ila Chambers Glucose [Mass/Vol] 98 mg/dL Normal 74-106 [facility] Comment on above: Performed By: #### B MP #### [facility] [address] [address] [address] Ila Chambers Potassium [Moles/Vol] 3.6 mmol/L Normal 3.4-5.[address] [facility] Comment on above: Performed By: #### B MP #### [facility] [address] [address] [address] Ila Chambers Sodium [Moles/Vol] 136 mmol/L Critically low 137-145 Th [facility] Comment on above: Performed By: #### B MP #### [facility] [address] [address] [address] Ila Chambers Urea nitrogen [Mass/Vol] 11.0 mg/dL Normal 9.0-20.[address] [facility] Comment on above: Performed By: #### B MP #### [facility] [address] [address] [address] Ila Chambers Urea nitrogen/Creatinin e [Mass ratio] 13.9 mg/mg Normal [facility] Comment on above: Performed By: #### B MP #### [facility] [address] [address] [address] Ila Chambers CTA ABDOMEN AND PELVISon CTA ABDOMEN AND PELVIS [facility] Department of Radiology [address] [place] [id number] ======== Patient Name: OBINNA STARK : [...] achievable Electronically signed: Jodi Lakhani. Transcribed by: [email or web address], User Resident: Electronically Signed by: JODI LAKHANI @ 12/27/2020 10:59 AM Normal [facility] Comment on above: Order Comment: , , = ========= , Ordering Provider - AMBER CHI MD , Encounters Encounter Date Encounter Type Care Provider Facility Start: 09-15-2023 End: 09-15-2023 ambulatory [facility] Start: 05-25-2023 End: 05-25-2023 ambulatory BENITA [facility] Start: 05-11-2023 Chart abstracting Hector dean MD Work Phone: [facility] Start: 01-16-[facility]23 [facility] Start: 01-16-2023 End: 01-16-2023 [facility] Start: 11-18-2022 End: 11-18-2022 [facility] Start: 05-23-[address] HECTOR ECHEVERRIA [facility] y:H1 Start: 12-29-2021 End: 12-30-[address] DOCTOR BOONE Facility:H1 Start: 12-08-2021 End: 12-09-[address] KARIS LOGAN Facility:H1 Start: 06-03-2021 End: 06-04-2021 ambulatory BENITA [place] Facility:H1 Plan of Treatment Date Care Activity Detail Author Start: 01-29-2024 End: 01-29-2024 Patient encounter procedure 01/29/2024 11:35 AM EDT Office Visit [facility] [address] [place] [address] Sri Montoya, CERAMIC DESIGN ENGINEER-PRODUCT SAFETY ADMINISTRATOR [address] [place] [address] [facility] Start: 05-15-2023 End: 05-15-2023 Patient encounter procedure 05/15/2023 1:00 PM EST Office Visit [facility] [address] [place] [id number] Hector Echeverria MD [address] [place] [address] [facility] Start: 1940 Medicare Annual Well ness (AWV) Medicare Annual Wellness (AWV) [facility] Immunizations Immunization Date Immunization Notes Care Provider Fa cili 12-20-2022 Influenza, Seasonal, Quadrivalent, Adjuvanted Hector Echeverria MD Work Phone: [facility] 03-09-2022 Influenza, High-dose Seasonal, Quadrivalent, Preservative Free Hector Echeverria MD Work Phone: [facility] 01-14-2022 Influenza, High-dose Seasonal, Quadrivalent, Preservative Free Hector Echeverria MD Work Phone: [facility] 01-04-2021 Influenza, High-dose Seasonal, Quadrivalent, Preservative Free Hector Echeverria MD Work Phone: [facility] 12-10-2020 tetanus toxoid, redu gloria diphtheria toxoid, and acellular pertussis vaccine, adsorbed Hector Echeverria MD Work Phone: [facility] 12-30-2019 influenza, high dose seasonal, preservative-free Hector Echeverria MD Work Phone: [facility] 12-30-2019 Influenza, High-dose Seasonal, Quadrivalent, Preservative Free Hector Echeverria MD Work Phone: [facility] 02-07-2019 pneumococcal conjuga te vaccine, 13 valmaurice Echeverria MD Work Phone: [facility] 01-16-2019 Influenza, injectabl e, Madin Jacqui Canine Kidney, quadrivalent with preservative Hector Echeverria MD Work Phone: [facility] 01-03-2018 influenza, high dose seasonal, preservative-free Hector Echeverria MD Work Phone: [facility] 01-03-2018 Influenza, High-dose Seasonal, Quadrivalent, Preservative Free Hector Echeverria MD Work Phone: [facility] 12-07-2016 influenza, injectabl e, quadrivalent, preservative free Hector Echeverria MD Work Phone: [facility] 12-07-2016 pneumococcal polysaccharide vaccine, 23 valent Hector Echeverria MD Work Phone: [facility] 02-09-2016 influenza, high dose seasonal, preservative-free Hector Echeverria MD Work Phone: [facility] 02-13-2014 pneumococcal polysaccharide vaccine, 23 valent Hector Echeverria MD Work Phone: [facility] 01-20-2014 seasonal influenza, intradermal, preservative free Hector Echeverria MD Work Phone: [facility] Payers Date Payer Category Payer Unknown AARP AARP [id number] 2022-Present [address] [place] [address] [id number] 2003 Medicare MEDICARE MEDICAR E PART B [id number] 2003-Present [address] [address] [place] [address] Medicare [id number] 1959 Medicare [id number] 1959 Self-pay 1959 Unknown [id number] 1940 Unknown [id number] 1940 Unknown [id number] 1940 Unknown [id number] Unknown [id number] Social History Date Type Detail Facility Start: 01-13-2023 Tobacco smoking stat [facility] Never smoked tobacco [facility] Start: 05-11-2023 Alcohol intake Lifetime non-d juan (finding) [facility] Start: 01-26-2023 History of Social function [facility] Start: 01-26-2023 Tobacco use panel [facility] Start: 1940 Sex Assigned At Not on file [facility] Progress note 09-15-2023 Note Date & Type Note Facility 09-15-2023 Note [place] [facility] Myesha Stark is a 83 y.o. year old male patient being seen for 4 mo follow up SOTO, CAD, PAD, HTN, and HLD. Had stress test and echo in June 2023, after last apt. Then had PFT's and CXR. Denies chest pain, palpitations, and lightheadedness/syncope. States his dyspnea on exertion remains unchanged. Patient Active Problem List Diagnosis AAA (abdominal [...] the past, PAD and claudication. He is 83 yo. He is s/p revascularization of his lower extremities: 04/25/2016: DEAN OF FACULTY and drug eluting Zilver PTX stents of the right SFA total occlusion 03/24/2016: DEAN OF FACULTY and drug eluting Zilver PTX stents and [...] aneurysm now s/p EVAR by Dr Chi. At the prior visit and due to easy bruising and ecchymosis I stopped his aspirin and continued clopidogrel. He was evaluated in our office on 05/25/2023 because of shortness of breath on exertion. His stress test and echocardiogram were nonrevealing. The PFTs and chest x-ray suggested emphysema/COPD. Today he reports doing well. He has no angina, no claudication. No ulcers in the feet. No rest leg pain. He continues to have shortness of breath on exertion, NYHA class II-III symptoms. Review of Systems Cardiovascular: Positive for dyspnea on exertion. Respiratory: Positive for cough. Hematologic/Lymphatic: Bruises/bleeds easily. Neurological: Positive for loss of balance. All other systems reviewed and are negative. Objective Visit Vitals BP 152/76 (BP Location: Right arm, Patient Position: Sitting) Pulse 92 Ht 1.791 m (5' 10.5 ) Wt 75.8 kg (167 lb) SpO2 95% BMI 23.62 kg/m??? Smoking Status Every Day [...] mouth in the morning., Disp: , Rfl: phenyt (more content not included)... [facility] Progress note 05-25-2023 Note Date & [...] All other systems reviewed and are negative. [facility] Progress note 05-25-2023 Note Date & Type Note Facility 05-25-2023 Note [place] [facility] Myesha Stark is a 82 y.o. year old male patient being seen for Coronary Artery Disease and Shortness of Breath Patient Active Problem List Diagnosis AAA (abdominal aortic aneurysm) ([facility]) Smoking greater than 20 pack years Acute sinusitis Coronary atherosclerosis Gallstone Neck pain Peripheral vascular disease ([facility]) Tobacco dependence syndrome Tuberculosis Abdominal aortic aneurysm ([facility]) Arthritis of right acromioclavicular joint Adjustment disorder, unspecified Anxiety state Benign essential hypertension Cervical spine arthritis Claustrophobia Constipation Gastro-esophageal reflux disease without esophagitis COPD (chronic obstructive pulmonary disease) ([facility]) Generalized osteoarthrosis, involving multiple sites Hypercholesterolemia Osteoarthritis of right hip Peripheral arterial occlusive disease ([facility]) Positive TB test Rotator cuff tear arthropathy of right shoulder Seizure disorder ([facility]) Shoulder joint pain Verruca plantaris Family History [...] s/p revascularization of his lower extremities: 04/25/2016: DEAN OF FACULTY and drug eluting Zilver PTX stents of the right SFA total occlusion 03/24/2016: DEAN OF FACULTY and drug eluting Zilver PTX stents and [...] mg by mouth (more content not included)... [facility] Progress note 01-16-2023 Note Date & Type Note Facility 01-16-[address] angiogram in 1 ye ar. Continue risk factors modification. [facility] Progress note 01-16-2023 Note Date & [...] past 36 hour(s)). No follow-ups on file. [facility] Progress note 11-18-2022 Note Date & Type Note Facility 11-18-2022 Note [place] [facility] Subjective Obinna Stark is a 82 y.o. year old [...] s/p revascularization of his lower extremities: 04/25/2016: DEAN OF FACULTY and drug eluting Zilver PTX stents of the right SFA total occlusion 03/24/2016: DEAN OF FACULTY and drug eluting Zilver PTX stents and [...] Encounter on 08 (more content not included)... [facility] Summary Purpose Family History No Family History Records FoundNo Family History Records FoundNo Family History Records Found Advance Directives No Advanced Directives Records FoundNo Advanced Directives Records FoundNo Advanced Directives Records Found Additional Source Comments (unrecognized sect ion and content) No Status Records FoundNo Status Records FoundNo Status Records Found INFORMATION SOURCE (unrecogn ized section and content) DATE CREATED AUTHOR 12/29/2020 [facility] DATE CREATED AUTHOR AUTHOR'S ORGANIZ ATION 05/23/2022 [facility] DATE CREATED AUTHOR AUTHOR'S ORGANIZ ATION 09/16/2023 [facility] Care Teams (unrecognized sec tion and content) Pedal Assembler Relationship Specialty Start Date End Date Hector Echeverria MD [address] [place] [address] PCP - General Internal Medicine 08/09/22 FOR [...] BE BASED ON THE PRIMARY CLINICAL RECORDS. [facility]. provides no warranty or guarantee of the accuracy or completeness of information in this document.
== END 2023-11-21 10:30 | disposition home or self-care (01) ==
LOC: RAD 10:30
PROVIDERS: PCP Internal Medicine; Visit Provider Physician Assistant
DX: R07.81 Pleurodynia (principal); S22.32XA Fracture of one rib, left side, initial encounter for closed fracture
CPT/HCPCS: 71101

== ENCOUNTER 2024-01-10 11:45 | Outpatient (OUT) | payer MEDICARE, SELFPAY ==
--- OUTSIDE RECORDS SUMMARY | 2024-01-10 11:51 | XMS_ITS | CCD ---
Author Organization [facility] Care Team Providers Care Business And Marketing Teacher Name Role Phone PAOLO, DR JOYCE Admitting [...] Unavailable Hector Echeverria MD Primary Care Provider [phone] BENITA PANCHAL Attending Unavailable AMBER CHI Attending Unavailable AMBER CHI Referring Unavailable KARIS LOGAN Attending Unavailable MOUKAKARIS TOM Attending Unavailable HECTOR ECHEVERRIA Attending Unavailable BECK HUSSEIN Attending Unavailable HECTOR ECHEVERRIA Attending Unavailable Allergies Allergy Classification Reported Allergen(s) Allergy Type Date of Onset Reaction(s) Facility (1 source) Dextroamphetamine Drug Allergy 03-03-20 15 [facility] Repository (1 source) rofecoxib Drug Allergy 04-03-19 00 [facility] Rep[facility] (2 sources) atorvastatin; Translations: [ATORVASTATIN] Drug Allergy 01-06-20 22 [facility] Healthcare (2 sources) rofecoxib; Translations: [ROFECOXIB] Drug Allergy 03-21-20 14 GI bleeding, Other, Unknown [facility] Healthcare Medications Current Medications Medication [...] Coronary atherosclerosis; Translations: [Atherosclerotic heart disease of inupiat coronary artery without angina pectoris] Onset: 3 [...] Facil ity Office Visiton 09-15-2023 Follow-up visit [id number] Obinna Stark 1940 Date Provider Department Center 09/15/2023 KARIS GAN JIE Bonilla Family History Problem Relation Age of Onset Diabetes Mother Family Status - Relation Status Age at Mother Level of Service:29202 CA OFFICE/OUTPATIENT ESTABLISHED MOD MDM 30 MIN Normal [facility] Orders Onlyon 08-15-2023 Orders Only [id number] Obinna Stark 1940 Date Provider Department Center 08/15/2023 FINN FRANKLIN [facility] Family History Problem Relation Age of Onset Diabetes Mother Family Status - Relation Status Age at Mother Normal [facility] 36on 06-20-2023 36 Regarding echo and [...] order both for him. Orders faxed to [facility]. Normal [facility] Office Visiton 05-25-2023 Follow-up visit [id number] Obinna Stark 1940 M Date Provider Department Center 05/25/2023 166-BENITA PANCHAL CARD [facility] Family History Problem Relation Age of Onset Diabetes Mother Family Status - Relation Status Age at Mother Level of Service:61163 CA OFFICE/OUTPATIENT ESTABLISHED MOD MDM 30 MIN Reason for Visit and Comments: Coronary Artery Disease [187] Shortness of Breath [877423] Normal [facility] CTA ABDOMEN PELVIS W AND/OR WO [...] suggesting BPH. Electronically signed: Jodi Lakhani. Normal [facility] Follow-Upon 01-16-2023 Follow-Up [id number] Obinna Stark 1940 M Date Provider Department Center 01/16/2023 Veronika-AMBER CHI [facility] Family History Problem Relation Age of Onset Diabetes Mother Family Status - Relation Status Age at Mother Level of Service:98887 CA OFFICE/OUTPATIENT ESTABLISHED MOD MDM 30-39 MIN Reason for Visit and Comments: Follow-up [968206] - Yearly fu AAA Normal [facility] Office Visiton 11-18-2022 Follow-up visit [id number] Obinna Stark 1940 M Date Provider Department Center 11/18/2022 KARIS GAN JIE Gina [facility] Family History Problem Relation Age of Onset Diabetes Mother Family Status - Relation Status Age at Mother Level of Service:03184 CA OFFICE/OUTPATIENT ESTABLISHED MOD MDM 30-39 MIN Reason for Visit and Comments: Follow-up [357439] - 6 month follow up Normal [facility] CREATININEon 12-29-2021 Creatinine [Mass/Vol] 0.70 mg/dL Normal 0.70-1.30 [facility] Comment on above: Performed By: #### C DES #### [facility] [address] [place] [address] Dr. Ila Chambers EGFR-AF MACANESE >60 Normal >=60 [facility] Comment on above: Performed By: #### C DES #### [facility] [address] [place] [address] Dr. Ila Chambers EGFR-NON AF MACANESE >60 Normal >=60 [facility] Comment on above: Performed By: #### C DES #### [facility] [address] [place] [address] Dr. Ila Chambers ECHOCARDIO M/2D COMPLETEon 0 12-08-2021 ECHOCARDIO M/2D COMPLETE Patient: OBINNA STARK Exam Date: 12/08/2021 : 1940 Gender:M Ordering : DR KARIS LOGAN M.D. Admission #: [id number] Family : DR HECTOR ECHEVERRIA M.D. Order #: [id number] CLICK HERE TO VIEW EXAM ECHOCARDIOGRAM REPORT [...] Logan M.D. on 12/08/2021 at 18:35 Normal [facility] PROF CHEM 8 (BAS METB)on Anion gap [Moles/Vol] 10.7 mmol/L Normal [facility] Comment on above: Performed By: #### B MP #### [facility] [address] [place] [address] Dr. Ila Chambers Calcium [Mass/Vol] 8.2 mg/dL Critically low 8.4-10.2 [facility] Comment on above: Performed By: #### B MP #### [facility] [address] [place] [address] Dr. Ila Chambers Chloride [Moles/Vol] 100 mmol/L Normal 98-107 [facility] Comment on above: Performed By: #### B MP #### [facility] [address] [place] [address] Dr. Ila Chambers CO2 [Moles/Vol] 28.9 mmol/L Normal 22.0-30.0 [facility] Comment on above: Performed By: #### B MP #### [facility] [address] [place] [address] Dr. Ila Chambers Creatinine [Mass/Vol] 0.79 mg/dL Normal 0.66-1.25 [facility] Comment on above: Performed By: #### B MP #### [facility] [address] [place] [address] Dr. Ila Chambers EGFR-AF MACANESE >60 Normal >=60 [facility] Comment on above: Performed By: #### B MP #### [facility] [address] [place] [address] Dr. Ila Chambers EGFR-NON AF MACANESE >60 Normal >=60 [facility] Comment on above: Performed By: #### B MP #### [facility] [address] [place] [address] Dr. Ila Chambers Glucose [Mass/Vol] 98 mg/dL Normal 74-106 [facility] Comment on above: Performed By: #### B MP #### [facility] [address] [place] [address] Dr. Ila Chambers Potassium [Moles/Vol] 3.6 mmol/L Normal 3.4-5.0 [facility] Comment on above: Performed By: #### B MP #### [facility] [address] [place] [address] Dr. Ila Chambers Sodium [Moles/Vol] 136 mmol/L Critically low 137-145 [facility] Comment on above: Performed By: #### B MP #### [facility] [address] [place], [place] [address] Dr. Ila Chambers Urea nitrogen [Mass/Vol] 11.0 mg/dL Normal 9.0-20.0 [facility] Comment on above: Performed By: #### B MP #### [facility] [address] [place], [place] [address] Dr. Ila Chambers Urea nitrogen/Creatinin e [Mass ratio] 13.9 mg/mg Normal [facility] Comment on above: Performed By: #### B MP #### [facility] [address] [place], [place] [address] Dr. Ila Chambers CTA ABDOMEN AND PELVISon CTA ABDOMEN AND PELVIS [facility] Department of Radiology [address] [place] [phone] ======== Patient Name: OBINNA STARK : 1940 Sex: M Age: Race: White Pt. Location: Patient Status: D Ordered Date: 11/05/2020 3:00:00 PM Completed Date: 12/23/2020 10:31 AM Requesting Provider: AMBER CHI Attending Provider: AMBER CHI Report Copy To: HECTOR ECHEVERRIA Signs & Symptoms: I71.4 Abdominal aortic aneurysm, without rupture I10 History: [place] Patient will have labs done closer to [...] achievable Electronically signed: Jodi Lakhani. Transcribed by: [email or web address], User Resident: Electronically Signed by: JODI LAKHANI @ 12/27/2020 10:59 AM Normal [facility] Comment on above: Order Comment: , , = ========= , Ordering Provider - AMBER CHI MD , Encounters Encounter Date Encounter Type Care Provider Facility Start: 11-27-2023 End: 11-27-2023 ambulatory HECTOR ECHEVERRIA Not Available Start: 11-21-2023 End: 11-21-2023 ambulatory BECK HUSSEIN Not Available Start: 09-15-2023 End: 09-15-2023 ambulatory [facility] Start: 05-29-2023 End: 05-29-2023 ambulatory HECTOR ECHEVERRIA Not Available Start: 05-25-2023 End: 05-25-2023 ambulatory BENITA [facility] Start: 05-11-2023 Chart abstracting Hector dean MD Work Phone: [facility] Start: 01-16-2023 ambulatory [facility] Start: 01-16-2023 End: 01-16-2023 ambulatory [facility] Start: 11-18-2022 End: 11-18-2022 ambulatory KARIS LOGAN [facility] Start: 05-23-[address] HECTOR ECHEVERRIA [...] DERM [address] [place] [id number] Sri Montoya, COUNTER TOP ASSEMBLER-PET CREMATORY WORKER [address] [place] [address] [facility] Start: 05-15-2023 End: 05-15-2023 Patient encounter procedure 05/15/2023 1:00 PM EST Office Visit [facility] [address] [place] [address] Hector Echeverria MD [address] [place] [address] [facility] Start: 1940 Medicare Annual Well ness (AWV) Medicare Annual Wellness (AWV) [facility] Immunizations Immunization Date Immunization Notes Care Provider [facility] 12-20-2022 Influenza, Seasonal, Quadrivalent, Adjuvanted Hector Echeverria MD Work Phone: [facility] 03-09-2022 Influenza, High-dose Seasonal, Quadrivalent, Preservative Free Hector Echeverria MD Work Phone: [facility] 01-14-2022 Influenza, High-dose Seasonal, Quadrivalent, Preservative Free Hector Echeverria MD Work Phone: [facility] 01-04-2021 Influenza, High-dose Seasonal, Quadrivalent, Preservative Free Hector Echeverria MD Work Phone: [facility] 12-10-2020 tetanus toxoid, redu gloria diphtheria toxoid, and acellular pertussis vaccine, adsorbed Hector Echeverria MD Work Phone: [facility] 12-30-2019 influenza, high dose seasonal, preservative-free Hector Echeverria MD Work Phone: [facility] 12-30-2019 Influenza, High-dose Seasonal, Quadrivalent, Preservative Free Hector Echeverria MD Work Phone: [facility] 02-07-2019 pneumococcal conjuga te vaccine, 13 valent Hector Echeverria MD Work Phone: [facility] 01-16-2019 Influenza, injectabl e, Madin [place] Canine Kidney, quadrivalent with preservative Hector Echeverria MD Work Phone: [facility] 01-03-2018 influenza, high dose seasonal, preservative-free Hector Echeverria MD Work Phone: [facility] 01-03-2018 Influenza, High-dose Seasonal, Quadrivalent, Preservative Free Hector Echeverria MD Work Phone: [facility] 12-07-2016 influenza, injectabl e, quadrivalent, preservative free Hector Echeverria MD Work Phone: [facility] 12-07-2016 pneumococcal polysaccharide vaccine, 23 valent Hector Echeverria MD Work Phone: [facility] 02-09-2016 influenza, high dose seasonal, preservative-free Hector Echeverria MD Work Phone: [facility] 02-13-2014 pneumococcal polysaccharide vaccine, 23 valent Hector Echeverria MD Work Phone: [facility] 01-20-2014 seasonal influenza, intradermal, preservative free Hector Echeverria MD Work Phone: [facility] Payers Date Payer Category Payer Unknown AARP AARP [id number] 2022-Present [address] [place] [address] [id number] 2003 Medicare MEDICARE MEDICAR E PART B [id number] 2003-[place] [address] [place] [address] Medicare [id number] 1959 Medicare [id number] 1959 Self-pay 1959 Unknown [id number] 1940 Unknown [id number] 1940 Unknown [id number] 1940 Unknown [id number] 1940 Unknown [id number] 1938 Unknown [id number] 1940 Unknown [id number] Unknown [id number] Social History Date Type Detail Facility Start: 01-13-2023 Tobacco smoking stat [facility] Never smoked tobacco [facility] Start: 05-11-2023 Alcohol intake Lifetime non-d juan (finding) [facility] Start: 01-26-2023 History of Social function [facility] Start: 01-26-2023 Tobacco use panel [facility] Start: 1940 Sex Assigned At Not on file [facility] Progress note 09-15-2023 Note Date & Type Note Facility 09-15-2023 Note [facility] [facility] Myesha Stark is a 83 [...] s/p revascularization of his lower extremities: 04/25/2016: LIFE EDUCATOR and drug eluting Zilver PTX stents of the right SFA total occlusion 03/24/2016: LIFE EDUCATOR and drug eluting Zilver PTX stents and [...] , Rfl: phenyt (more content not included)... [facility] Progress note 05-25-2023 Note Date & [...] All other systems reviewed and are negative. [facility] Progress note 05-25-2023 Note Date & Type Note Facility 05-25-2023 Note [facility] [facility] Myesha Stark is a 82 [...] s/p revascularization of his lower extremities: 04/25/2016: LIFE EDUCATOR and drug eluting Zilver PTX stents of the right SFA total occlusion 03/24/2016: LIFE EDUCATOR and drug eluting Zilver PTX stents and [...] mg by mouth (more content not included)... [facility] Progress note 01-16-2023 Note Date & Type Note Facility 01-16-[address] angiogram in 1 ye ar. Continue risk factors modification. [facility] Progress note 01-16-2023 Note Date & [...] past 36 hour(s)). No follow-ups on file. [facility] Progress note 11-18-2022 Note Date & Type Note Facility 11-18-2022 Note [facility] Myesha Obinna Stark is a 82 y.o. year [...] s/p revascularization of his lower extremities: 04/25/2016: LIFE EDUCATOR and drug eluting Zilver PTX stents of the right SFA total occlusion 03/24/2016: LIFE EDUCATOR and drug eluting Zilver PTX stents and [...] Encounter on 08 (more content not included)... [facility] Summary Purpose Family History No Family History Records FoundNo Family History Records FoundNo Family History Records FoundNo Family History Records Found Advance Directives No Advanced Directives Records FoundNo Advanced Directives Records FoundNo Advanced Directives Records FoundNo Advanced Directives Records Found Additional Source Comments (unrecognized sect ion and content) No Status Records FoundNo Status Records FoundNo Status Records FoundNo Status Records Found INFORMATION SOURCE (unrecogn ized section and content) DATE CREATED AUTHOR 12/29/2020 [facility] DATE CREATED AUTHOR AUTHOR'S ORGANIZ ATION 05/23/2022 [facility] DATE CREATED AUTHOR AUTHOR'S ORGANIZ ATION 09/16/2023 [facility] DATE CREATED AUTHOR AUTHOR'S ORGANIZ ATION 11/28/2023 [facility] Care Teams (unrecognized sec tion and content) Business And Marketing Teacher Relationship Specialty Start Date End Date Hector Echeverria MD [address] [facility] [address] [place] [address] PCP - General Internal Medicine 08/09/22 FOR [...] BE BASED ON THE PRIMARY CLINICAL RECORDS. [facility]. provides no warranty or guarantee of the accuracy or completeness of information in this document.
[2024-01-10 12:05] LABS: Estimated GFR (African America >60 (>=60 mL/min/1.73m^2); Estimated GFR (Non-African Ame >60 (>=60 mL/min/1.73m^2)
== END 2024-01-10 11:46 | disposition home or self-care (01) ==
LOC: LAB 11:47
PROVIDERS: PCP Internal Medicine
DX: I71.43 Infrarenal abdominal aortic aneurysm, without rupture (principal)
CPT/HCPCS: 36415; 82565

== ENCOUNTER 2024-09-05 12:01 | Outpatient (OUT) | payer MEDICARE, SELFPAY ==
--- OUTSIDE RECORDS SUMMARY | 2024-02-06 09:00 | XMS_ITS ---
Author Organization [facility] in [place] Address [address] [place] [address] Care Team Providers Care Lens Inspector Name Role Phone Hector Echeverria MD Primary Care Provider Randolph Booth Unavailable [phone] Allergies Allergen (clinical drug ingredient) Drug/Non Drug Allergy documented on EMR Reaction Allergy Type Onset Date Status celecoxib CeleBREX Unknown Drug Allergy Active atorvastatin Atorvastatin Unknown Drug Allergy A ctive rofecoxib Rofecoxib Internal Bleeding Drug Allergy Active REASON FOR VISIT 3 MOS F/U COPD Medications Medication SIG (Take, Route, Frequency, Duration) Notes Start Date End Date Status Rosuvastatin Calcium 10 MG Oral for 90 Days Active prednisoLONE Acetate 1 % Ophthalmic for 30 Days Active Citalopram Hydrobromide 20 MG Oral for 90 Days Active Anoro Ellipta 62.5-25 MCG/ACT 1 puff Inhalation QD for 30 days 10/24/2023 Active amLODIPine Besylate 10 MG Oral for 90 Days Active Lisinopril 10 MG Oral for 90 Days Active Latanoprost 0.005 % Ophthalmic for 90 Days Active Clopidogrel Bisulfate 75 MG Oral for 90 Days Active Moxifloxacin HCl 0.5 % Ophthalmic for 10 Days Active Social History Tobacco Use: Social History Observation Description Date Details (start date - stop date) Current Smoker NA - NA Tobacco Control (Standard) Question Answer Notes Tobacco use: Current every day smoker Additional Findings: Tobacco user Moderate cigar ette smoker (10-19 cigs/day) Encounters Encounter Location Date Provider Diagnosis Pulmonary Medicine [place] [address] [place] [address] 02/06/2024 Randolph Rosas Plan Of Treatment No Information Procedure Notes * Category Sub-Category Detail Notes PFT Data: PFT 06/30/2023:-F EV1/FVC: 45%-FEV1: 82%-FVC: 127%-UPB68-18%: 34%-Bronchodilator response: None-RV: 118%-T%-DLCO: 91%PFT 03/09/2016:-FEV1/FVC: 55%-FEV1: 93%-FVC: 122%-PMG79-78%: 40%-Bronchodilator response: None-RV: 114%-T%-DLCO: 57%PFT 03/17/2015:-FEV1/FVC: 54%-FEV1: 101%-FVC: 135%-DSF87-18%: 37%-Bronchodilator response: None-RV: 94%-T%-DLCO: 54% Progress Notes * Obinna STARK RDOB:1940 (84 yo M)Acc No.[id number]:02/06/2024 UNLOCKED PROGRESS NOTE Follow Up Patient: Erich Oibnna VELÁZQUEZ Provider: Lyric Rosas DO :1940 A ge:83 Y S ex:Male Date:02/06/2024 Address:[address] Pcp:Hector Echeverria MD Subjective: * Chief Complaints: * [...] F ather: tuberculosis. M other: diagnosed with Diabetes mellitus without mention of complication, type II or unspecified type, not stated as uncontrolled, Unspecified polyarthropathy or polyarthritis, pelvic region and thigh. * Social History: T obacco Use: T obacco Control (Standard) T obacco use: C urrent every day smoker A dditional Findings: Tobacco user M oderate cigarette smoker (10-19 cigs/day) Electronic Cigarette use C urrent user N o LM: Additional Tobacco Questions N umber of Years Pt Smoked: 6 3 N umber of Packs per Day: 1 M iscellaneous: O ccupation O ccupation: R etired [place]/Al Pets: cats. D rugs/Alcohol: D rugs H ave you used drugs other than those for medical reasons in the past 12 months? N o D oes the Patient have a History of Drug Abuse in the Past? N o Caffeine I ntake: 2 -3 cups per day Coffee Do you drink alcohol?: No. Do you smoke marijuana?: Denies. * Medications: T [...] Vitals: Assessment: Plan: * Treatment: * Procedures: P FT: Data: PFT 06/30/2023: -FEV1/FVC: 45% -FEV1: 82% -FVC: 127% -SHD79-52%: 34% -Bronchodilator response: None -RV: 118% -T% -DLCO: 91% PFT 03/09/2016: -FEV1/FVC: 55% -FEV1: 93% -FVC: 122% -PDI09-19%: 40% -Bronchodilator response: None -RV: 114% -T% -DLCO: 57% PFT 03/17/2015: -FEV1/FVC: 54% -FEV1: 101% -FVC: 135% -HHM11-07%: 37% -Bronchodilator response: None -RV: 94% -T% -DLCO: 54%. * Preventive Medicine: COVID Vaccination: H as patient had COVID Vaccination? COVID Vaccination Y es 01/04/2021 Immunization Status: P neumovacc P revnar 13-02/07/2019. I nfluenza 0 12/20/2022. B oostrix 0 12/10/2020. Screenings/Counseling: F ALL RISK SCREENING Fall Risk Assessment: O ne fall with injury in the past year Are you afraid of falling? Y es T OBACCO ACTION PLAN Patient counselled on the dangers of tobacco use and urged to quit. 0 10/24/2023 Education on smoking effects provided?10/24/2023 R SV-06/09/2023. * * Electronic signature of Bessie Rosas DO on 09/05/2024 at 12:05 PM EDT Sign off status: Pending Visit Status: N /S N/C (No Show/No Charge) * Provider: Lyric Rosas DO Date: 04/07/2023 Generated for Marta mcgee/Leroy/Lyndaitting on: 0 09/05/2024 12:05 PM EDT
--- OUTSIDE RECORDS SUMMARY | 2024-02-08 06:36 | XMS_ITS ---
Author Organization [facility] in [place] Address [address] [place] [address] Care Team Providers Care Shellfish Weigher Name Role Phone Hector Echeverria MD Primary Care Provider Randolph Booth [phone] REASON FOR VISIT no call no show appointment Encounters Encounter Location Date Provider Diagnosis Pulmonary Medicine [place] [address] [place] [address] 02/08/2024 Randolph Rosas Plan Of Treatment No Information Progress Notes * Obinna STARK RDOB:1940 (83 yo M)Acc No.[id number]:02/08/2024 Patient: Erich Obinna VLEÁZQUEZ :1940 A ge:83 Y S ex:Male Address:[facility] [address], [place] [address] * true * Date: Generated for Marta mcgee/Leroy/eTransmitting on: 0 09/05/2024 12:05 PM EDT
--- OUTSIDE RECORDS SUMMARY | 2024-04-17 05:30 | XMS_ITS ---
Author Organization [facility] in [place] Address [address] [place] [address] Care Team Providers Care It Applications Analyst Name Role Phone Hector Echeverria MD Primary Care Provider Randolph Booth Unavailable [phone] Allergies Allergen (clinical drug ingredient) Drug/Non Drug Allergy documented on EMR Reaction Allergy Type Onset Date Status celecoxib CeleBREX Unknown Drug Allergy Active atorvastatin Atorvastatin Unknown Drug Allergy A ctive rofecoxib Rofecoxib Internal Bleeding Drug Allergy Active REASON FOR VISIT 3 MOS F/U COPD Medications Medication SIG (Take, Route, Frequency, Duration) Notes Start Date End Date Status Moxifloxacin HCl 0.5 % Ophthalmic for 10 Days Active Rosuvastatin Calcium 10 MG Oral for 90 Days Active prednisoLONE Acetate 1 % Ophthalmic for 30 Days Active Anoro Ellipta 62.5-25 MCG/ACT 1 puff Inhalation QD for 30 days 10/24/2023 Not-Taking Albuterol Sulfate HFA 108 (90 Base) MCG/ACT Inhalation for 17 Days Not-Taking Clopidogrel Bisulfate 75 MG Oral for 90 Days Active Phenytoin Sodium Extended 100 MG Oral for 90 Days Active Citalopram Hydrobromide 20 MG Oral for 90 Days Active Lisinopril 10 MG Oral for 90 Days Active Latanoprost 0.005 % Ophthalmic for 90 Days Active amLODIPine Besylate 10 MG Oral for 90 Days Active Social History Tobacco Use: Social History Observation Description Date Details (start date - stop date) Current Smoker NA - NA Tobacco Control (Standard) Question Answer Notes Tobacco use: Current every day smoker Additional Findings: Tobacco user Moderate cigar ette smoker (10-19 cigs/day) Problems Problem Type SNOMED Code ICD Code Onset Dates Problem Status W/U Status Risk Notes Problem [id number] Unsteadiness on feet (R26.81) Active confirmed Vital Signs Temperature 96.8 degrees Fahrenheit 04/17/19 25 Blood pressure systolic 147 mm Hg 04/17/19 25 Blood pressure diastolic 77 mm Hg 025 Heart Rate 78 /min 04/17/2024 Respiratory Rate 18 /min 04/17/2024 Height 69 in 04/17/2024 Weight 157.4 lbs 04/17/2024 BMI 23.24 kg/m2 04/17/2024 Oximetry 95 % 04/17/2024 Encounters Encounter Location Date Provider Diagnosis Pulmonary Medicine [place] [address] [place] [address] 04/17/2024 Randolph Rosas Centrilobular emphys virginie J43.2 ; Cigarette nicotine dependence with nicotine-induced disorder F17.219 ; Seizure disorder G40.909 and Unsteadiness on feet R26.81 Assessments Encounter Date Diagnosis (ICD Code) Assessment Notes Treatment Notes Treatment Clinical Notes Section Notes 04/17/2024 Centrilobular emphysema (ICD-10 - J43.2) Once again, explained the patient that he has marked emphysematous changes noted on past chest CT. He also has spirometry consistent with a progressively worsening obstructive defect. Attempted to treat him with an oral, but patient refused to use it due to risk of worsening glaucoma. Unfortunately, all current triple therapy treatments can potentially exacerbate glaucoma (LABA, LAMA, ICS). Patient also had this bizarre claim that the inhaler made him excessively sleepy. Only symptom at this time is a cough. He voiced he does not understand why he would develop a cough at this age. I explained that years of smoking likely have caught up with him and now he is having symptoms at the age of 83. He has already tried nasal sprays and states his risk controlled-GERD and PND are the other 2 with common causes of chronic cough. At this time, the patient expresses no desire to try any further inhaler therapy. I counseled him on importance of smoking cessation. He may follow-up as needed. 04/17/2024 Cigarette nicotine dependence with nicotine-induced disorder (ICD-10 - F17.219) Patient was counseled on the importance of smoking cessation. Patient did not request any assistance today. He does not meet current LDCT screening criteria. 04/17/2024 Seizure disorder (ICD-10 - G40.909) Patient remains on phenytoin. 04/17/2024 Unsteadiness on feet (ICD-10 - R26.81) Patient was noted to have an unsteady gait upon arrival. After the enounter, I personally observed the patient walk. It appeared unsteady to me, with a limp - his right lower extremity was externally rotated. I mentioned his gait, which he replied I probably should be using a cane, but I don't want to have to carry it around with me. I offered to get him a wheelchair out to his car, but he refused. 04/17/2024 Other Plan Of Treatment Treatment Notes Assessment Notes Centrilobular emphysema Once again, explained the patient that he has marked emphysematous changes noted on past chest CT. He also has spirometry consistent with a progressively worsening obstructive defect. Attempted to treat him with an oral, but patient refused to use it due to risk of worsening glaucoma. Unfortunately, all current triple therapy treatments can potentially exacerbate glaucoma (LABA, LAMA, ICS). Patient also had this bizarre claim that the inhaler made him excessively sleepy. Only symptom at this time is a cough. He voiced he does not understand why he would develop a cough at this age. I explained that years of smoking likely have caught up with him and now he is having symptoms at the age of 83. He has already tried nasal sprays and states his risk controlled-GERD and PND are the other 2 with common causes of chronic cough. At this time, the patient expresses no desire to try any further inhaler therapy. I counseled him on importance of smoking cessation. He may follow-up as needed. Cigarette nicotine dependenc e with nicotine-induced disorder Patient was counseled on the importance of smoking cessation. Patient did not request any assistance today. He does not meet current LDCT screening criteria. Seizure disorder Patient remains on phenytoin. Unsteadiness on feet Patient was noted to have an unsteady gait upon arrival. After the enounter, I personally observed the patient walk. It appeared unsteady to me, with a limp - his right lower extremity was externally rotated. I mentioned his gait, which he replied I probably should be using a cane, but I don't want to have to carry it around with me. I offered to get him a wheelchair out to his car, but he refused. Next Appt Details Follow Up: PRN, Reason: Procedure Notes * Category Sub-Category Detail Notes PFT Data: PFT 06/30/2023:-F EV1/FVC: 45%-FEV1: 82%-FVC: 127%-MMX05-00%: 34%-Bronchodilator response: None-RV: 118%-T%-DLCO: 91%PFT 03/09/2016:-FEV1/FVC: 55%-FEV1: 93%-FVC: 122%-YJG31-04%: 40%-Bronchodilator response: None-RV: 114%-T%-DLCO: 57%PFT 03/17/2015:-FEV1/FVC: 54%-FEV1: 101%-FVC: 135%-USD64-95%: 37%-Bronchodilator response: None-RV: 94%-T%-DLCO: 54% Progress Notes * Obinna STARK RDOB:1940 (83 yo M)Acc No.[id number]:04/17/2024 Follow Up Patient: Erich Obinna VELÁZQUEZ R Provider: Lyric Rosas DO :1940 A ge:83 Y S ex:Male Date:04/17/2024 Address[address] Pcp:Hector Echeverria MD Check In:09:26 AM ESTCheck O ut:10:33 AM EST Subjective: * Chief Complaints: * 3 MOS F/U COPD * HPI: G eneral: Last visit, I prescribed Anoro. He states he has glaucoma? (doesn't know if open or narrow angle) and after reading the potential adverse effects, he did not want to take it. No one ever notified this office. He stated that he also had some difficulty breathing after he saw us was prescribed some pills and some other inhaler (patient cannot tell us what they were) -I just that the inhaler made him sleep for almost 12 hours. I stated that I have never met a patient who admits to this side effect with any inhaler for COPD/asthma. Went on to state that this inhaler should be taken off the market and he wants to never use it... How his breathing was doing. He states he does not have any shortness of breath right now. His only complaint is a occasional dry cough. He is using nasal sprays without significant improvement. That the cough could be due to his COPD. I reviewed with him that he had significant emphysematous changes noted on his prior chest CT, based on the PFT results with spirometry showing mild obstruction, the treatment of both C OPD and asthma is inhaled therapy. He cannot tolerate it or he chooses not to use it, then I do not have many options left to treat this potential aspect of his cough. He had again then went into his use of the inhaler to cause him to be oversedated. I asked him if you are still on antiseizure medication, also answered in the affirmative. He still takes Dilantin. His last seizure was 40+ years ago. He denies any other seizure activity. MA Intake Comments:. Patient presents for a follow-up for COPD. Patient appeared to have an abnormal gait while walking to the exam room. Patient was very unsteady while taking short steps and holding on the thomason while shuffling his feet at times. Patient reports falling >1 year ago but states he is very cautious and worries about falling. Patient complains of SOB & Dry Cough. Patient states he is concerned about taking any inhalers as they are dangerous. Patient states the one particular inhaler that he was prescribed by will affect his driving. Patient states the older he gets, the harder medications are to take. Patient admits to smoking 1/2 PPD. Patient is under the care of [facility] Cardiology. * ROS: G eneral/Constitutional: Fever or sweats d enies. C hange of appetite d enies. C hills d enies. W eight Change d enies. H EENT: Dry mouth d enies. S ore throat d enies. O ral Ulcers d enies. P ost Nasal Drip D enies. C ongestion D enies. H oarseness?Denies. C ardiovascular: Tachycardia d enies. C hest pain d enies. P alpitations d enies. R espiratory: Chest tightness d enies. P leurisy D enies. D yspnea d enies. C ough d ry cough. H emoptysis d enies. W heezing d enies. G astrointestinal: Acid Reflux/GERD/Heartburn c ontrolled. D ysphagia d enies. M usculoskeletal: Arthralgias/joint pain D enies. S kin: Easy bruising d enies. R marcial d enies. ? N eurologic: Seizures d enies. T remor d enies. H ematology: Abnormal Bleeding d enies. P sychiatric: Anxiety d enies. * Active Problem List J43.2 Centrilobular emphys virginie Modified On:10/24/2023U Status:confirmed I25.10 CAD (coronary artery disease) Modified On:10/24/2023U Status:confirmed F17.219 Cigarette nicotine d ependence with nicotine-induced disorder Modified On:10/24/2023/U Status:confirmed G40.909 Seizure disorder Modified On:10/24/2023U Status:confirmed J43.9 Emphysema, unspecifi ed Modified On:07/12/2023U Status:confirmed R26.81 Unsteadiness on feet Modified On:04/17/2024 Status:confirmed * Medical History: * Surgical History: t onsillectomy cholecystectomy cataract removal abdominal aortic aneurysm repair vascular bypass Cardiac Catheterizations * Hospitalization/Major Diagno stic Procedure: D enies Past Hospitalization * Family History: F ather: tuberculosis. M [...] you smoke marijuana?: Denies. * Medications: T akingamLODIPine Besylate 10 MG Tablet Oral Citalopram Hydrobromide 20 MG Tablet Oral Clopidogrel Bisulfate 75 MG Tablet Oral Latanoprost 0.005 % Solution Ophthalmic Lisinopril 10 MG Tablet Oral Moxifloxacin HCl 0.5 % Solution Ophthalmic Phenytoin Sodium Extended 100 MG Capsule Oral prednisoLONE Acetate 1 % Suspension Ophthalmic Rosuvastatin Calcium 10 MG Tablet Oral Taking amLODIPine Besylate 10 MG Tablet Oral Taking Citalopram Hydrobromide 20 MG Tablet Oral Taking Clopidogrel Bisulfate 75 MG Tablet Oral Taking Latanoprost 0.005 % Solution Ophthalmic Taking Lisinopril 10 MG Tablet Oral Taking Moxifloxacin HCl 0.5 % Solution Ophthalmic Taking Phenytoin Sodium Extended 100 MG Capsule Oral Taking prednisoLONE Acetate 1 % Suspension Ophthalmic Taking Rosuvastatin Calcium 10 MG Tablet Oral Not-Taking/PRNAlbuterol Sulfate HFA 108 (90 Base) MCG/ACT Aerosol Solution Inhalation Anoro Ellipta(Umeclidinium- Vilanterol) 62.5-25 MCG/ACT Aerosol Powder Breath Activated 1 puff Inhalation QD Medication List reviewed and reconciled with the patientNot-Taking/PRN Albuterol Sulfate HFA 108 (90 Base) MCG/ACT Aerosol Solution Inhalation Not-Taking/PRN Anoro Ellipta(Umeclidinium-Vilanterol) 62.5-25 MCG/ACT Aerosol Powder Breath Activated 1 puff Inhalation QD Medication List reviewed and reconciled with the patient * Allergies: C eleBREX: AllergyAtorvastatin: AllergyRofecoxib: Internal Bleeding - Allergyno[Allergies Verified] Objective: * Vitals: W t:157.4lbs, Ht: 69 in, BP:sittin/77mm Hg, Temp:Forehead:96.8F, HR:78/min, RR:18/min, BMI:23.24Index, Oxygen sat %:Room Air:95%, Ht-cm: 175.26 cm, Wt-k.4 kg. * Examination: E xam: GENERAL APPEARANCE: A ppears stated age. Skin N ormal. Mouth P ink and moist. Upper and lower dentures. Oropharynx M allampati Class III. Trachea M idline. Chest N ormal. Respiratory Normal M ovements, E ffort N ormal. Auscultation C lear diminished but clear today. No wheezes, crackles, or rhonchi. Cardiac R egular rate and rhythm. Gastrointestinal N ormal. Vascular N o edema. Musculoskeletal A bnormal gait, limping with external rotation of right lower extremity. Requiring to hang onto wall to walk. Neurological F ocal, intact. Psychiatric A lert. Mentation/Cognition P atient went on tangential conversations regarding his eyes and over sedation with an inhaler several times, which I had to redirect him.? Assessment: * Assessment: 1. C entrilobular emphysema - J43.2 (Primary) 2 . C igarette nicotine dependence with nicotine-induced disorder - F17.219 3 . S eizure disorder - G40.909? 4. U nsteadiness on feet - R26.81 Plan: * Treatment: 2. C igarette nicotine dependence with nicotine-induced disorder Notes: Patient was counseled on the importance of smoking cessation. Patient did not request any assistance today. He does not meet current LDCT screening criteria. 3. S eizure disorder Notes: Patient remains on phenytoin. 4. U nsteadiness on feet Notes: Patient was noted to have an unsteady gait upon arrival. After the enounter, I personally observed the patient walk. It appeared unsteady to me, with a limp - his right lower extremity was externally rotated. I mentioned his gait, which he replied I probably should be using a cane, but I don't want to have to carry it around with me. I offered to get him a wheelchair out to his car, but he refused. * Procedures: P FT: Data: PFT 06/30/2023: -FEV1/FVC: 45% -FEV1: 82% -FVC: 127% -YKF84-53%: 34% -Bronchodilator response: None -RV: 118% -T% -DLCO: 91% PFT 03/09/2016: -FEV1/FVC: 55% -FEV1: 93% -FVC: 122% -JFG83-57%: 40% -Bronchodilator response: None -RV: 114% -T% -DLCO: 57% PFT 03/17/2015: -FEV1/FVC: 54% -FEV1: 101% -FVC: 135% -XSY76-88%: 37% -Bronchodilator response: None -RV: 94% -T% -DLCO: 54%. * Procedure Codes: * Preventive Medicine: COVID Vaccination: H as patient had COVID Vaccination? COVID Vaccination Y es 01/04/2021 Immunization Status: P neumovacc P revnar 13-02/07/2019. I nfluenza 1 04/28/2023. B oostrix 0 12/10/2020. Screenings/Counseling: F ALL RISK SCREENING Fall Risk Assessment: O ne fall with injury in the past year Are you afraid of falling? Y es T OBACCO ACTION PLAN Patient counselled on the dangers of tobacco use and urged to quit. 0 04/17/2024 Cessation counseling provided 0 04/17/2024 R SV-06/09/2023. * Follow Up: P RN * * Sign off status: Completed Visit Status: C HK (Check Out) true * Provider: Lyric Rosas DO Date: 0 04/17/2024 Generated for Marta mcgee/Leroy/Lyndaitting on: 0 09/05/2024 07:18 AM EDT History and Physical Notes * HPI (History of Present Illness) Category Sub-Category Detail Notes Category Not es General Patient present s for a follow-up for COPD. Patient appeared to have an abnormal gait while walking to the exam room. Patient was very unsteady while taking short steps and holding on the thomason while shuffling his feet at times. Patient reports falling >1 year ago but states he is very cautious and worries about falling. Patient complains of SOB & Dry Cough. Patient states he is concerned about taking any inhalers as they are dangerous. Patient states the one particular inhaler that he was prescribed by will affect his driving. Patient states the older he gets, the harder medications are to take. Patient admits to smoking 1/2 PPD. Patient is under the care of [facility] Cardiology. Examination Category Sub-Category Detail Notes Category Not es Exam GENERAL APPEARANCE: Appears stated age Skin Normal Mouth [place] and moist. Uppe r and lower dentures Trachea Midline Chest Normal Respiratory Normal Movements, Ef fort Normal Auscultation Clear diminished but clear today. No wheezes, crackles, or rhonchi Cardiac Regular rate and rhy thm Gastrointestinal Normal Vascular No edema Musculoskeletal Abnormal gait, limpi ng with external rotation of right lower extremity. Requiring to hang onto wall to walk Neurological Focal, intact Psychiatric Alert Mentation/Cognition Patient went on sotelo ential conversations regarding his eyes and over sedation with an inhaler several times, which I had to redirect him Oropharynx Mallampati Class III
--- OUTSIDE RECORDS SUMMARY | 2024-09-05 09:30 | XMS_ITS | Encounter Summary ---
Author Organization [facility] Address [address] [place] [address] Care Team Providers Care Painter Foreman Name Role Phone Hector Echeverria MD Primary Care Provider [phone] Hector Echeverria MD Unavailable [phone] Jayashree Vanegas LPN Unavailable Unavailable Reason for Referral * Medications - Closed Specialty Diagnoses / Procedures Referred By Contac t Referred To Contact Diagnoses Anxiety state (CMS/HCC) Latasha Alvarenga PA [address] [facility] [address] [place] [address] Phone: tel: fax: Referral ID Status Reason Start Date Expiration Date Visits Re quested Visits Authorized [id number] Closed 1 1 Reason for Visit * Reason Comments Med Refill Diazepam Encounter Details Date Type Department Care Team (Late st Contact Info) Description 09/05/2024 9:30 AM EDT Office Visit [facility] [address] [facility] [address] [place] [address] Latasha Alvarenga PA [address] [facility] [address] [place] [address] Rhonchi at left lung base (Primary Dx); Anxiety state (CMS/HCC); Smoking greater than 20 pack years; Centrilobular emphysema (CMS/HCC) Social History Tobacco Use Types Packs/Day Years Used Date Smoking Tobacco: Every Day Cigarettes Cigars Started: 2008 Tobacco Cessation:Ready to Q uit: Not Asked; Counseling Given: Not Answered Alcohol Use Standard Drinks/Week Comments Never 0 (1 standard drink = 0.6 oz pur e alcohol) B1300 Health Literacy Answer Date Recor ded How often do you need to hav e someone help you when you read instructions, pamphlets, or other written material from your doctor or pharmacy? Sometimes 02/08/2024 Humiliation, Afraid, Rape, and Kick questionnair e Answer Date Recorded Within the last year, have y ou been afraid of your partner or ex-partner? No 02/08/2024 Within the last year, have y ou been humiliated or emotionally abused in other ways by your partner or ex-partner? No Within the last year, have y ou been kicked, hit, slapped, or otherwise physically hurt by your partner or ex-partner? No 02/08/2024 Within the last year, have y ou been raped or forced to have any kind of sexual activity by your partner or ex-partner? No 02/08/2024 Social Connection and Isolat ion Panel [NHANES] Answer Date Recorded In a typical week, how many times do you talk on the phone with family, friends, or neighbors? More than three times a week 02/08/2024 How often do you get togethe r with friends or relatives? More than three times a week 02/08/2024 How often do you attend chur or worship services? Never 02/08/2024 Do you belong to any clubs o r organizations such as samaritan groups, unions, fraternal or athletic groups, or school groups? Yes 02/08/2024 How often do you attend meet ings of the clubs or organizations you belong to? 1 to 4 times per year 02/08/2024 Are you , , di vorced, , never , or living with a partner? 02/08/2024 AUDIT-C Answer Date Recorded Q1: How often do you have a drink containing alcohol? Never 02/08/2024 Q2: How many drinks containi ng alcohol do you have on a typical day when you are drinking? Patient does not drink Q3: How often do you have si x or more drinks on one occasion? Never 02/08/2024 Overall Financial Resource Strain (CARDIA) Answe r Date Recorded How hard is it for you to pa y for the very basics like food, housing, medical care, and heating? Not hard at all 02/08/2024 PHQ-2 Answer Date Recorded Patient Health Questionnaire-2 Score 0 09/05/2024 [facility] Occupat ional Health - Occupational Stress Questionnaire Answer Date Recorded Do you feel stress - tense, restless, nervous, or anxious, or unable to sleep at night because your mind is troubled all the time - these days? To some extent 02/08/2024 Exercise Vital Sign Answer Date Recorde d On average, how many days pe r week do you engage in moderate to strenuous exercise (like a brisk walk)? 0 days 02/08/2024 On average, how many minutes do you engage in exercise at this level? 0 min 02/08/2024 Hunger Vital Sign Answer Date Recorded Within the past 12 months, y ou worried that your food would run out before you got the money to buy more. Never true 02/08/20 24 Within the past 12 months, t he food you bought just didn't last and you didn't have money to get more. Never true 02/08/2024 PRAPARE - Transportation Answer Date Re corded In the past 12 months, has l ack of transportation kept you from medical appointments or from getting medications? No 10/2023 In the past 12 months, has l ack of transportation kept you from meetings, work, or from getting things needed for daily living? No 02/08/2024 Housing Stability Vital Sign Answer Jem e Recorded In the last 12 months, was t here a time when you were not able to pay the mortgage or rent on time? No 02/08/2024 In the past 12 months, how m any times have you moved where you were living? 0 02/08/2024 At any time in the past 12 m [facility], were you homeless or living in a fdc (including now)? No 02/08/2024 Sex and Gender Information Value Date Recorded Sex Assigned at Not on file Legal Sex Male 7:01 PM EDT Gender Identity Not on file Sexual Orientation Not on file documented as of this encounter Last Filed Vital Signs Vital Sign Reading Time Taken Comments Blood Pressure 126/82 09/05/2024 9:41 AM EDT Pulse 78 09/05/2024 9:41 AM EDT Temperature 36.2 C (97.1 F) 09/05/2024 9:41 AM EDT Respiratory Rate 18 09/05/2024 9:41 AM EDT Oxygen Saturation 99% 09/05/2024 9:41 AM EDT Inhaled Oxygen Concentration - - Weight 72.7 kg (160 lb 3.2 oz) 09/05/2024 9:41 A M EDT Height 176.5 cm (5' 9.5 ) 09/05/2024 9:41 AM EDT Body Mass Index 23.32 09/05/2024 9:41 AM EDT documented in this encounter Functional Status * Over the past 2 weeks, how often have you been bothered by any of the following problems? Question Answer Date of Assessment Author Little interest or pleasure in doing things Not at all 09/05/2024 9:31 AM EDT Camelia Israel LP N Feeling down, depressed, or hopeless Not at all 09/05/2024 9:31 AM EDT Camelia Israel LP N Patient Health Questionnaire -2 Score 0 09/05/2024 9:31 AM EDT Camelia Israel LP N documented as of this encounter Progress Notes * HORTENSIA Shelton - 09/05/2024 9:30 AM EDT Images from the original note were not included. HPI Med Refill Additional comments: Diazepam Last edited by Camelia Israel LPN on 09/05/2024 9:41 AM. Subjective Patient ID: Obinna Francis is a 84 y.o. male who presents for cough. Obinna is present today for evaluation of URI. Admits nasal congestion, runny nose with clear drainage, dry throat, cough with clear phlegm, SOB, wheezing, fatigue. He has been sick for a couple of months and has been using vicks nasal inhalation. Sits outside watching his grand daughter play softball and that makes his cough worse. States the Albuterol, is one of the most dangerous pills you can take. States it makes him tired,slows his thoughts. States, it is a killer pill. States he is always cold. Current Outpatient Medications on File Prior to Visit Medication Sig Dispense Refill albuterol HFA (ProAir HFA) 90 mcg/act inhaler Inhale 2 puffs every 4 (four) hours if needed for wheezing 18 g 2 alpha tocopherol (Vitamin E) 400 units capsule 1 capsule 1 (one) time each day at the same time. amLODIPine (Norvasc) 10 MG tablet Take 10 mg by mouth in the morning. clopidogrel (Plavix) 75 MG tablet TAKE 1 TABLET BY MOUTH EVERY DAY 100 tablet 3 latanoprost (Xalatan) 0.005 % ophthalmic solution PLACE 1 DROP INTO BOTH EYES ONCE A DAY AT BEDTIME lisinopril 10 MG tablet Take 10 mg by mouth Daily phenytoin ER (Dilantin) 100 MG capsule TAKE 1 CAPSULE BY MOUTH TWICE A DAY 200 capsule 3 rosuvastatin (Crestor) 10 MG tablet Take 1 tablet by mouth in the morning. [DISCONTINUED] diazePAM (Valium) 5 MG tablet Take 1 tablet (5 mg) by mouth every 8 (eight) hours ifneeded for anxiety 30 tablet 0 No current facility-administered medications on file prior to visit. I have reviewed and reconciled the history and medication list with the patient today. Allergies Allergen Reactions Rofecoxib GI bleeding, Other and Unknown Other Reaction(s): internal bleeding, Other Internal bleeding Celecoxib Unknown Atorvastatin Caused back pain Social History Tobacco Use Smoking status: Every Day Types: Cigars, Cigarettes Start date: 2008 Substance Use Topics Alcohol use: Never Drug use: Never Family History Problem Relation Name Age of Onset Diabetes Mother Diabetes Father No Known Problems Son 4 sons, healthy Melanoma Neg Hx Past Medical History: Diagnosis Date AAA (abdominal aortic aneurysm) (CMS/HCC) CAD (coronary artery disease) (CMS/[facility]) GERD (gastroesophageal reflux disease) History of being hospitalized [facility]- 11/10/18-11/12/18 Hyperlipidemia (CMS/HCC) Left rib fracture 11/21/2023 7th Osteoarthritis PVD (peripheral vascular disease) ([facility]/HCC) Seizure disorder ([facility]/HCC) Past Surgical History: Procedure Laterality Date CHOLECYSTECTOMY 1999 COLONOSCOPY CORONARY ANGIOPLASTY WITH STENT PLACEMENT angioplasty, stents x 3 CT ANGIOGRAM ABDOMEN PELVIS 01/16/2023 CT ANGIOGRAM ABDOMEN PELVIS 01/16/2023 CT ANGIOGRAM ABDOMEN PELVIS 01/05/2022 CT ANGIOGRAM ABDOMEN PELVIS 01/05/2022 CT ANGIOGRAM ABDOMEN PELVIS 12/27/[address] A[address] P[address]VIS CT ANGIOGRAM ABDOMEN PELVIS 12/24/[address] ANGIOGRAM ABDOMEN PELVIS 06/18/[address] ANGIOGRAM ABDOMEN PELVIS 11/26/[address] A[address]OM[address] P[address]VIS CT ANGIOGRAM ABDOMEN PELVIS 01/15/2024 CT ANGIOGRAM ABDOMEN PELVIS 01/15/2024 CYST REMOVAL EYE SURGERY Bilateral 08/2023 cataract extraction IR ENDOVASCULAR AORTIC REPAIR 11/10/2018 Endovascular Repair of AAA IR STENT PLACEMENT stents placed in bilateral legs JOINT REPLACEMENT Right 2005 knee replacement MOLE REMOVAL VT ARTHRODESIS POSTERIOR INTERBODY 1 NTRSPC LUMBAR 11/12/2018 PLIF L4-L5, Fusion L5-S1 VT PARTIAL HEMISPHERECTOMY 1951 partial brain excision - cerebritis VT REPAIR SLIDING INGUINAL HERNIA Bilateral 2013 SHOULDER ARTHROSCOPY DISTAL CLAVICLE EXCISION AND OPEN ROTATOR CUFF REPAIR Right 05/10/2017 , biceps tenolysis Dr. Harvey TONSILLECTOMY UMBILICAL HERNIA REPAIR 1999 VARICOSE VEIN SURGERY 1982 Varicose veins-- right leg Visit Vitals BP 126/82 Pulse 78 Temp 97.1 ??F Resp 18 Ht 5' 9.5 Wt 160 lb 3.2 oz SpO2 99% BMI 23.32 kg/m?? Smoking Status Every Day BSA 1.89 m?? Review of Systems Constitutional: Positive for fatigue. Negative for chills and fever. HENT: Positive for congestion and rhinorrhea. Negative for ear pain and sore throat. Respiratory: Positive for cough, shortness of breath and wheezing. Cardiovascular: Negative for chest pain, palpitations and leg swelling. Gastrointestinal: Negative for abdominal pain, constipation, diarrhea, nausea and vomiting. Skin: Negative for rash. Objective Physical Exam Constitutional: General: He is not in acute distress. Appearance: Normal appearance. HENT: Head: Normocephalic and atraumatic. Right Ear: Tympanic membrane and ear canal normal. Left Ear: There is impacted cerumen. Nose: Right Turbinates: Pale. Left Turbinates: Pale. Mouth/Throat: Mouth: Mucous membranes are moist. Pharynx: Posterior oropharyngeal erythema (Mild) present. Eyes: General: No scleral icterus. Cardiovascular: Rate and Rhythm: Normal rate and regular rhythm. Heart sounds: No murmur heard. Pulmonary: Effort: Pulmonary effort is normal. No respiratory distress. Breath sounds: Decreased air movement present. Rhonchi (Left lung base) present. No wheezing or rales. Musculoskeletal: General: No swelling. Lymphadenopathy: Cervical: No cervical adenopathy. Skin: General: Skin is warm and dry. Neurological: General: No focal deficit present. Mental Status: He is alert and oriented to person, place, and time. Gait: Gait abnormal. Psychiatric: Mood and Affect: Mood normal. Behavior: Behavior normal. Cognition and Memory: Cognition is impaired. Comments: Flight of ideas Assessment/Plan Diagnoses and all orders for this visit: Rhonchi at left lung base - XR chest 2 views; Future Will obtain updated chest x-ray for further evaluation. Will notify pt of the results once received. Anxiety state (CMS/HCC) - diazePAM (Valium) 5 MG tablet; Take 1 tablet (5 mg) by mouth every 8 (eight) hours if needed for anxiety Refill provided on the above. OARRS report generated and reviewed. Smoking greater than 20 pack years Discussed smoking cessation with the patient. Encouraged patient to cut back and soon quit smoking.Health risks of smoking, and benefits of quitting reviewed with the patient. Centrilobular emphysema (CMS/HCC) - benzonatate (Tessalon) 200 MG capsule; Take 1 capsule (200 mg) by mouth 3 (three) times a day as needed for cough for up to 7 days Do not crush or chew. Can take Benzonatate prn for cough. Pt is clearly confused regarding the Albuterol inhaler, even when corrected that it is an inhaler, not a pill, he continues to say it it a dangerous or killer pill. I am uncertain what patient is referring to with the medication. Advised pt that he is likely cold often due to being on an anticoagulant. Advised this is a common s/e. Follow up in about 3 months (around 12/06/2024) for Medication Follow Up. documented in this encounter Plan of Treatment Upcoming Encounters Date Type Department Care Team (Late st Contact Info) Description 12/20/2024 9:30 AM EDT Office Visit [facility] [address] [facility] [address] [place] [address] Hector Echeverria MD [address] [facility] [address] [place] [address] Scheduled Orders Name Type Priority Associated Diagnoses Orde r Schedule XR chest 2 views Imaging Routine Rhonchi at left lung base Expected: 09/05/2024, Expires: 09/05/2025 documented as of this encounter Visit Diagnoses Diagnosis Rhonchi at left lung base- Primary Anxiety state (CMS/HCC) Anxiety state, unspecified Smoking greater than 20 pack years Centrilobular emphysema (CMS/HCC) documented in this encounter Care Teams Painter Foreman Relationship Specialty Start Date End Date Hector Echeverria MD [address] [facility] [address] [place] [address] PCP - General Internal Medicine 08/09/22 Hector Echeverria MD [address] [facility] [address] [place] [address] PCP - ACO Reach 08/02/23 Jayashree Vanegas LPN 06/21/24 documented as of this encounter
--- OUTSIDE RECORDS SUMMARY | 2024-09-05 12:05 | XMS_ITS | Encounter Summary ---
Author Organization [facility] Address [address] [place] [address] Care Team Providers Care Director Check Name Role Phone Hector Echeverria MD Primary Care Provider Hector Echeverria MD Unavailable [phone] Monday, Zhane PORTILLO Unavailable [phone] Puja Palacio RN Unavailable [phone] Jayashree Vanegas LAUNDRY OPERATOR WASH ROOM Unavailable Unavailable Encounter Details Date Type Department Care Team (Late st Contact Info) Description 06/06/2023 Clinisync Result Encounter [facility] External Department Unsolicited Provider, Generic External Data Social History Tobacco Use Types Packs/Day Years Used Date Smoking Tobacco: Never Alcohol Use Standard Drinks/Week Comments Never 0 (1 standard drink = 0.6 oz pur e alcohol) Sex and Gender Information Value Date Recorded Sex Assigned at Not on file Legal Sex Male 7:01 PM EDT Gender Identity Not on file Sexual Orientation Not on file documented as of this encounter Plan of Treatment Upcoming Encounters Date Type Department Care Team (Late st Contact Info) Description 12/20/2024 9:30 AM EDT Office Visit [facility] [address] [facility] [address] [place] [address] Hector Echeverria MD [address] [facility] [address] [place], [place] [id number] documented as of this encounter Procedures Procedure Name Priority Date/Time Associated Diagnosis Comments CA ECHO DOPPLER COMPLETE 06/06/2023 4:30 PM EST documented in this encounter Results * CA ECHO DOPPLER COMPLETE (06/06/2023 4:30 PM EST) Anatomical Region Laterality Modality Other 06/06/2023 4:30 PM EST Narrative 06/06/2023 4:31 [place] [address] Cardiology Report Signed Patient: MARLI STARK MR#: [id number] : 1940 Acct:[id number] Age/Sex: 82 / M ADM Date: 06/06/23 Loc: [place] Attending Dr: BENITA PANCHAL APRN Ordering Physician: BENITA PANCHAL APRN Date of Service: 06/06/23 Procedure(s): CA echo doppler complete Accession Number(s): [id number] cc: HECTOR ECHEVERRIA ; BENITA PANCHAL APRN Patient Name: MARLI STARK MR#: [id number] : 1940 Exam Date: 06/06/2023 Ordering Doctor: BENITA PANCHAL DOCKING SAW OPERATOR ECHOCARDIOGRAM REPORT PROCEDURE: CA ECHO DOPPLER COMPLETE INDICATIONS: Dyspnea COMPARISON: None. DESCRIPTION: COMPLETE ECHOCARDIOGRAM Real-time transthoracic echocardiography with 2D, M-mode, spectral and color flow Doppler performed. QUALITY: Technical quality was good. LEFT VENTRICLE: Normal chamber size. Borderline left ventricular hypertrophy. Global left ventricular systolic function is at the lower limits of normal. Abnormal septal motion, likely due to bundle branch block. LV EF: Estimated left ventricular ejection fraction is 50-55 %. DIASTOLIC: Diastolic function is indeterminate. ATRIAL SEPTUM: LEFT ATRIUM: Mild dilatation. RIGHT ATRIUM: Moderate dilatation. RIGHT VENTRICLE: Mild chamber dilatation. Normal right ventricular systolic function. TRICUSPID VALVE: Normal mobility and thickness. No stenosis with mild regurgitation. No evidence of pulmonary hypertension. RVSP 31 mmHg MITRAL VALVE: Normal mobility and thickness. No evidence of mitral valve stenosis. There is no mitral annular calcification. Trivial mitral regurgitation. AORTIC VALVE: Normal trileaflet appearance. Mildly calcified aortic valve. Normal leaflet mobility. No evidence of aortic valve stenosis. No aortic regurgitation. AORTIC ROOT: Normal diameter and appearance. PULMONIC VALVE: Normal thickness and mobility. No stenosis. Trivial regurgitation. PERICARDIUM: No evidence of pericardial effusion. IVC: Collapses with inspirations. Normal size. PLEURA: CONCLUSION: 1. Left ventricular systolic function is at the lower limits of normal. LVEF is 50 to 55%. 2. Mildly dilated right ventricle with normal systolic function. 3. Mild to moderate biatrial dilatation. 4. Mild tricuspid regurgitation. 5. Normal right-sided pressures. Adult Echocardiography Procedure Report Left Ventricle LVEDD (3.7 - 5.6 cm): 4.47 cm LVESD (2.2 - 4.0 cm): 3.41 cm LVIVS thickness (0.6 - 1.2 cm): 0.93 cm LVPW thickness (0.5 - 1.0 cm): 1.13 cm e': 0.07 m/s E - e': 9.90 LVOT Max Gradient: 2.60 mm[Hg], 2.84 mm[Hg] LVOT Area (cm2): 0.82 m/s Peak Velocity (LVOT): 0.81 m/s, 0.84 m/s Mean Velocity (LVOT): 0.51 m/s LVOT Diameter 2.31 cm Left Ventricular Ejection Fraction: 61.26 % Left Atrium LA Volume Index (2D A2C): 38.75 ml/m2 Left Atrium Systolic Dimension: 2.75 cm Mitral Valve MV E to A Ratio: 0.70 Mitral Valve A-Wave Peak Velocity: 0.93 m/s Mitral Valve E-Wave Peak Velocity: 0.65 m/s Right Ventricle RV Internal Diastolic Dimension: 3.78 cm Aorta AO Root Diam: 3.51 cm Ascending Ao Diam: 2.45 cm Aortic Valve AoV Area (Peak Pascual): 2.79 cm2, 2.73 cm2 AoV Area (VTI): 2.82 cm2, 2.98 cm2 Peak Velocity(Antegrade Flow): 1.24 m/s Peak Gradient(Antegrade Flow): 6.15 mm[Hg] Mean Velocity(Antegrade Flow): 0.83 m/s Mean Gradient(Antegrade Flow): 3.12 mm[Hg] Velocity Time Integral: 28.29 cm Tricuspid Valve Peak Velocity (Regurgitant Flow): 2.67 m/s, 2.57 m/s, 2.62 m/s Pulmonic Valve Mean Gradient: 1.86 mm[Hg] Mean Velocity: 0.61 m/s Peak Velocity: 1.02 m/s, 0.99 m/s Peak Gradient: 3.88 mm[Hg], 4.20 mm[Hg] Right Atrium Right Atrium Systolic Pressure: 102.67 ml, 102.67 ml Dictated by: Karis Restrepo M.D. on 06/06/2023 at 16:25 Approved by: Karis Restrepo M.D. on 06/06/2023 at 16:30 Dictated By: KARIS RESTREPO Signed By: 06/06/23 1631 DD/ 1630 TD/TT: Set Up Operator: Procedure Note Radiology, Radiologist, MD - 06/06/2023 [place] [address] Cardiology Report Signed Patient: MARLI STARK RMR#: [id number] : 9Acct:[id number] Age/Sex: 82 / MADM Date: 06/06/23 Loc: [place] Attending Dr: BENITA PANCHAL APRN Ordering Physician: BENITA PANCHAL APRN Date of Service: 06/06/23 Procedure(s): CA echo doppler complete Accession Number(s): [id number] cc: HECTOR ECHEVERRIA ; BENITA PANCHAL APRN Patient Name: MARLI STARK MR#: [id number] : 1940 Exam Date: 06/06/2023 Ordering Doctor: BENITA PANCHAL CNP ECHOCARDIOGRAM REPORT PROCEDURE: CA ECHO DOPPLER COMPLETE INDICATIONS: Dyspnea COMPARISON: None. DESCRIPTION: COMPLETE ECHOCARDIOGRAM Real-time transthoracic echocardiography with 2D, M-mode, spectral and color flow Dopplerperformed. QUALITY: Technical quality was good. LEFT VENTRICLE: Normal chamber size. Borderline left ventricular hypertrophy. Global left ventricular systolic function is at the lowerlimits of normal. Abnormal septal motion, likely due to bundle branch block. LV EF: Estimated left ventricular ejection fraction is 50-55 %. DIASTOLIC: Diastolic function is indeterminate. ATRIAL SEPTUM: LEFT ATRIUM: Mild dilatation. RIGHT ATRIUM: Moderate dilatation. RIGHT VENTRICLE: Mild chamber dilatation. Normal right ventricular systolic function. TRICUSPID VALVE: Normal mobility and thickness. No stenosis with mild regurgitation. No evidence of pulmonary hypertension. RVSP 31 mmHg MITRAL VALVE: Normal mobility and thickness. No evidence of mitralvalve stenosis. There is no mitral annular calcification. Trivial mitral regurgitation. AORTIC VALVE: Normal trileaflet appearance. Mildly calcified aorticvalve. Normal leaflet mobility. No evidence of aortic valve stenosis. No aortic regurgitation. AORTIC ROOT: Normal diameter and appearance. PULMONIC VALVE: Normal thickness and mobility. No stenosis. Trivial regurgitation. PERICARDIUM: No evidence of pericardial effusion. IVC: Collapses with inspirations. Normal size. PLEURA: CONCLUSION: 1. Left ventricular systolic function is at the lower limits of normal.LVEF is 50 to 55%. 2. Mildly dilated right ventricle with normal systolic function. 3. Mild to moderate biatrial dilatation. 4. Mild tricuspid regurgitation. 5. Normal right-sided pressures. Adult Echocardiography Procedure Report Left Ventricle LVEDD (3.7 - 5.6 cm): 4.47 cm LVESD (2.2 - 4.0 cm): 3.41 cm LVIVS thickness (0.6 - 1.2 cm): 0.93 cm LVPW thickness (0.5 - 1.0 cm): 1.13 cm e': 0.07 m/s E - e': 9.90 LVOT Max Gradient: 2.60 mm[Hg], 2.84 mm[Hg] LVOT Area (cm2): 0.82 m/s Peak Velocity (LVOT): 0.81 m/s, 0.84 m/s Mean Velocity (LVOT): 0.51 m/s LVOT Diameter 2.31 cm Left Ventricular Ejection Fraction: 61.26 % Left Atrium LA Volume Index (2D A2C): 38.75 ml/m2 Left Atrium Systolic Dimension: 2.75 cm Mitral Valve MV E to A Ratio: 0.70 Mitral Valve A-Wave Peak Velocity: 0.93 m/s Mitral Valve E-Wave Peak Velocity: 0.65 m/s Right Ventricle RV Internal Diastolic Dimension: 3.78 cm Aorta AO Root Diam: 3.51 cm Ascending Ao Diam: 2.45 cm Aortic Valve AoV Area (Peak Pascual): 2.79 cm2, 2.73 cm2 AoV Area (VTI): 2.82 cm2, 2.98 cm2 Peak Velocity(Antegrade Flow): 1.24 m/s Peak Gradient(Antegrade Flow): 6.15 mm[Hg] Mean Velocity(Antegrade Flow): 0.83 m/s Mean Gradient(Antegrade Flow): 3.12 mm[Hg] Velocity Time Integral: 28.29 cm Tricuspid Valve Peak Velocity (Regurgitant Flow): 2.67 m/s, 2.57 m/s, 2.62 m/s Pulmonic Valve Mean Gradient: 1.86 mm[Hg] Mean Velocity: 0.61 m/s Peak Velocity: 1.02 m/s, 0.99 m/s Peak Gradient: 3.88 mm[Hg], 4.20 mm[Hg] Right Atrium Right Atrium Systolic Pressure: 102.67 ml, 102.67 ml Dictated by: Karis Restrepo M.D. on 06/06/2023 at 16:25 Approved by: Karis Restrepo M.D. on 06/06/2023 at 16:30 Dictated By: KARIS RESTREPO Signed By:06/06/23 1631 DD/ 1630 TD/TT: Set Up Operator: us Generic External Data Provider [facility] Final Result documented in this encounter Visit Diagnoses Not on filedocumented in this encounter Care Teams Director Check Relationship Specialty Start Date End Date Hector Echeverria MD [address] [facility] 110 [place] [address] PCP - General Internal Medicine 08/09/22 Hector Echeverria MD [address] [facility] [address] [place] [address] PCP - ACO Reach 08/02/23MondayZhane LPN [address] [place] [address] Licensed Practical Nurse Family Medicine 02/08/24 05/10/24 Puja Palacio, RN Licensed Practical Nurse Family Medicine 05/10/24 06/21/24 Jayashree Vanegas LPN 06/21/24 documented as of this encounter
--- OUTSIDE RECORDS SUMMARY | 2024-09-05 12:05 | XMS_ITS ---
Author Organization [facility] Address [address] [place] [address] Care Team Providers Care Instant Print Operator Name Role Phone Hector Echeverria MD Primary Care Provider [phone] Hector Echeverria MD Unavailable [phone] Jayashree Vanegas LPN Unavailable Unavailable Chronic Care Management (CCM) Status:Enrolled (Active) Start date:02/08/2024 Enrollment date:02/08/2024 Enrollment reason:Identified using hospital discharge data Overview 02/08/24, 2:06 PM - Zhanemonday, BANDAR- Patient gives verbal consent to be enrolled in CCM Program and understands there could be a bill for this service. Case Team Name Relationship Phone Jayashree Vanegas LPN(Responsible Staff) Continued Care and Services Coordination
--- OUTSIDE RECORDS SUMMARY | 2024-09-05 12:05 | XMS_ITS | Encounter Summary ---
Author Organization [facility] Address [address] [facility] [place] [address] Care Team Providers Care First Dyer Name Role Phone Hector Echeverria MD Primary Care Provider [phone] Hector Echeverria MD Unavailable [phone] Monday, Zhane PORTILLO Unavailable [phone] Puja Palacio RN Unavailable Jayashree Vanegas WARDSPERSON Unavailable Unavailable Encounter Details Date Type Department Care Team (Late Contact Info) Description 05/31/2023 Abstract [facility] [address] [facility] 110 [place] [address] Hector Echeverria MD [address] [facility] 110 [place] [address] Social History Tobacco Use Types Packs/Day Years [...] Office Visit [facility] [address] [facility] [address] [place] [address] Hector Echeverria MD [address] [facility] 110 [place] [address] documented as of this encounter Visit Diagnoses Not on filedocumented in this encounter Care Teams First Dyer Relationship Specialty Start Date End Date Hector Echeverria MD [address] [facility] [address] [place] [address] PCP - General Internal Medicine 08/09/22 Hector Echeverria MD [address] [facility] [address] [place] [address] PCP - ACO Reach 08/02/23MondayZhane LPN [address] [place] [address] Licensed Practical Nurse Family Medicine 02/08/24 05/10/24 Puja Palacio, RN Licensed Practical Nurse Family Medicine 05/10/24 06/21/24 Jayashree Vanegas LPN 06/21/24 documented as of this encounter
--- OUTSIDE RECORDS SUMMARY | 2024-09-05 12:05 | XMS_ITS | Encounter Summary ---
Author Organization [facility] Address [address] [place] [address] Care Team Providers Care Tying Machine Operator Name Role Phone Hector Echeverria MD Primary Care Provider [phone] Hector Echeverria MD Unavailable [phone] Jayashree Vanegas LPN Unavailable Unavailable Encounter Details Date Type Department Care Team (Late st Contact Info) Description 09/05/2024 Bamboo flowsheet [facility] [address] [facility] [address] [place] [address] Latasha Alvarenga PA [address] [facility] 110 [place], [place] [id number] Social History Tobacco Use Types Packs/Day Years Used Date Smoking Tobacco: Every Day Cigarettes Cigars Started: 2008 Alcohol Use Standard Drinks/Week Comments Never 0 [...] 02/08/2024 How often do you attend chur ch or zoroastrian services? Never 02/08/2024 Do you belong to any clubs o r organizations such as jew groups, unions, fraternal or athletic groups, or [...] Recorded Patient Health Questionnaire-2 Score 0 09/05/2024 [facility] - Occupational Stress Questionnaire Answer Date Recorded [...] any time in the past 12 m [facility], were you homeless or living in a prison (including now)? No 02/08/2024 Sex and Gender [...] Visit [facility] [address] [facility] [address] [place] [address] Hector Echeverria MD [address] [facility] [address] [place] [address] documented as of this encounter Visit Diagnoses Not on filedocumented in this encounter Care Teams Tying Machine Operator Relationship Specialty Start Date End Date Hector Echeverria MD [address] [facility] [address] [place] [address] PCP - General Internal Medicine 08/09/22 Hector Echeverria MD [address] [facility] [address] [place] [address] PCP - ACO Reach 08/02/23 Jayashree Vanegas LPN 06/21/24 documented as of this encounter
--- OUTSIDE RECORDS SUMMARY | 2024-09-05 12:05 | XMS_ITS | Encounter Summary ---
Author Organization [facility] Address [address] [place] [address] Care Team Providers Care Billing Associate Name Role Phone Hector Echeverria MD Primary Care Provider Hector Echeverria MD Unavailable [phone] Monday, Zhane PORTILLO Unavailable [phone] Puja Palacio RN Unavailable [phone] Jayashree Vanegas RAW FINISH MILL OPERATOR Unavailable Unavailable Encounter Details Date Type Department Care Team (Late st Contact Info) Description 06/30/2023 Clinisync Result Encounter [facility] External Department Unsolicited [...] CI FM [address] [facility] [address] [place] [address] Hector Echeverria MD [address] [facility] 110 [place], [place] [address] documented as of this encounter Procedures Procedure Name Priority Date/Time Associated Diagnosis Comments RT PULMONARY FUNCTION TEST 06/30/2023 9:09 AM EDT documented in this encounter Results * RT PULMONARY FUNCTION TEST (06/30/2023 9:09 AM EDT) Anatomical Region Laterality Modality Other 06/30/2023 9:09 AM EDT Narrative 07/05/2023 2:02 PM EDT [facility] [place] [id number] Respiratory Report Signed Patient: MARLI STARK MR#: [id number] : 1940 Acct:[id number] Age/Sex: 82 / M ADM Date: 06/30/23 Loc: CARD Attending Dr: BENITA PANCHAL APRN Ordering Physician: BENITA PANCHAL APRN Date of Service: 06/30/23 Procedure(s): RT pulmonary function test Accession Number(s): [id number] cc: The [facility] Test Date: 2023-06-30 Pat Name: MARLI STARK Department: Room: - Gender: Male Marketing Administrator: Robbi Mosqueda RRT : 1940 Requested By: Benita Panchal Order Number: [id number] Reading MD: Randolph Rosas Interpretive Statements Pulmonary function testing was completed according to ATS criteria. Findings were considered accurate and reproducible. Both pre- and post-bronchodilator values utilized for spirometry. Due to software limitations, no prior studies (if performed previously) are currently available for comparison. Spirometry (based on pre-bronchodilator values): -FEV1/FVC: Reduced @ 45% -FEV1: Low normal @ 82% -FVC: Normal @ 127% -CNN37-55%: Reduced @ 34% -There is no significant bronchodilator response. Lung volumes by plethysmography (based on pre-bronchodilator values): -RV: High normal @ 118% -TLC: Normal @ 115% Diffusion capacity: -DLCO: Severe reduction @ 41% when corrected for Hb 15.6g/dL Flow-volume loop: -Severe obstructive pattern Impressions: -Spirometry suggests mild obstruction. There is no bronchodilator response. Lung volumes are normal. There is a severely reduced diffusion capacity. Overall study suggests emphysema, though the decreased DLCO appears out of proportion to spirometry - question patient smoked prior to test or other concomitant cardiac or interstitial lung disease is present. Clinical correlation required. Electronically Signed On 07-05-2023 14:02:12 EDT by Randolph Rosas Dictated By: Randolph Rosas D.O. Signed By: 07/05/23 1402 DD/ 0909 TD/TT: Critical Care Clinical Nurse Specialist: Procedure Note Radiology, Radiologist, - 07/05/2023 [place] [address] Respiratory Report Signed Patient: MARLI STARK RMR#: [id number] : 9Acct:[id number] Age/Sex: 82 / MADM Date: 06/30/23 Loc: CARD Attending Dr: BENITA PANCHAL APRN Ordering Physician: BENITA PANCHAL APRN Date of Service: 06/30/23 Procedure(s): RT pulmonary function test Accession Number(s): [id number] cc: [facility] Test Date: 2023-06-30 Pat Name: MARLI STARK Department: Room: - Gender: Male Marketing Administrator: Robbi Mosqueda RRT : 1940 Requested By: Benita Panchal Order Number: [id number] Reading MD: Randolph Rosas Interpretive Statements Pulmonary function testing was completed according to ATS criteria.Findings were considered accurate and reproducible. Both pre- andpost-bronchodilator values utilized for spirometry. Due to software limitations, no priorstudies (if performed previously) are currently available for comparison. Spirometry (based on pre-bronchodilator values): -FEV1/FVC: Reduced @ 45% -FEV1: Low normal @ 82% -FVC: Normal @ 127% -OLY37-63%: Reduced @ 34% -There is no significant bronchodilator response. Lung volumes by plethysmography (based on pre-bronchodilator values): -RV: High normal @ 118% -TLC: Normal @ 115% Diffusion capacity: -DLCO: Severe reduction @ 41% when corrected for Hb 15.6g/dL Flow-volume loop: -Severe obstructive pattern Impressions: -Spirometry suggests mild obstruction. There is no bronchodilatorresponse. Lung volumes are normal. There is a severely reduced diffusion capacity. Overall study suggests emphysema, though the decreased DLCO appears outof proportion to spirometry - question patient smoked prior to test or other concomitant cardiac or interstitial lung disease is present. Clinical correlation required. Electronically Signed On 07-05-2023 14:02:12 EDT by Randolph Rosas Dictated By: Randolph Rosas D.O. Signed By:07/05/23 1402 DD/ 0909 TD/TT: Critical Care Clinical Nurse Specialist: us Generic External Data Provider [facility] Final Result documented in this encounter Visit Diagnoses Not on filedocumented in this encounter Care Teams Billing Associate Relationship Specialty Start Date End Date Hector Echeverria MD [address] [facility] [address] [place] [address] PCP - General Internal Medicine 08/09/22 Hector Echeverria MD [address] [facility] [address] [place] [address] PCP - ACO Reach 08/02/23Monday, BANDAR Phelan [address] [place] [address] Licensed Practical Nurse Family Medicine 02/08/24 05/10/24 Puja Palacio, RN Licensed Practical Nurse Family Medicine 05/10/24 06/21/24 Jayashree Vanegas LPN 06/21/24 documented as of this encounter
--- OUTSIDE RECORDS SUMMARY | 2024-09-05 12:05 | XMS_ITS | Encounter Summary ---
Author Organization [facility] Address [address] [facility] [place] [address] Care Team Providers Care Senior Storage Administrator Name Role Phone Hector Echeverria MD Primary Care Provider Hector Echeverria MD Unavailable [phone] Monday, Zhane PORTILLO Unavailable [phone] Puja Palacio RN Unavailable [phone] Jayashree Vanegas WATCH ADJUSTER Unavailable Unavailable Encounter Details Date Type Department Care Team (Late st Contact Info) Description 06/07/2023 Clinisync Result Encounter [facility] External Department Unsolicited [...] WAY [facility] [address] [place] [address] Hector Echeverria MD [address] [facility] [address], [place] [id number] documented as of this encounter Procedures Procedure Name Priority Date/Time Associated Diagnosis Comments NM JAEL PERF SPECT REST STR 06/07/2023 12:48 PM EST documented in this encounter Results * NM JAEL PERF SPECT REST STR (06/07/2023 12:48 PM EST) Anatomical Region Laterality Modality Other 06/07/2023 12:4 8 PM EST Narrative 06/07/2023 12:49 PM EST [address] [address] Nuclear Medicine Report Signed Patient: OBINNA STARK MR#: [id number] : 1940 Acct:[id number] Age/Sex: 82 / M ADM Date: 06/06/23 Loc: NM Attending Dr: BENITA PANCHAL APRN Ordering Physician: BENITA PANCHAL APRN Date of Service: 06/06/23 Procedure(s): NM jael perf SPECT rest str Accession Number(s): [id number] cc: HECTOR ECHEVERRIA ; BENITA PANCHAL APRN Patient Name: OBINNA STARK MR#: [id number] : 1940 Exam Date: 06/06/2023 Ordering Doctor: BENITA PANCHAL ENGINE OILER RADIOLOGY REPORT PROCEDURE: NM JAEL PERF SPECT REST STR COMPARISON: None. INDICATIONS: DYSPNEA TECHNIQUE: Exam Description: Stress/Rest one day protocol gated SPECT Rest Imagin.8 mCi Tc-99m Cardiolite IV on 06/06/2023 Stress Imaging 30.2 mCi Tc-99m Cardiolite IV on 06/06/2023 Exercise Protocol: 0.4 mg Lexiscan given IV Heart Rate (bpm): Rest: 80 Max: 96 PMHR: 70 Blood Pressure: Rest: 146/72 Max: 146/72 Symptoms: Rest and peak stress ECG findings were normal and the exercise portion of the study was normal per attending physician Dr. Braswell . For more details please see separate cardiac stress test report. FINDINGS: QUALITY OF STUDY: PERFUSION DEFECT: LOCATION: Basal inferoseptal. Basal inferior. Mid-inferoseptal. Mid-inferior. Apical inferior. [place]. SIZE: Large (5 or more segments). SEVERITY: Moderate. TYPE: Persistent. WALL MOTION: Mild hypokinesis: LV SIZE: Normal. 101 mL. TID / TCD: None; 0.8 LVEF: Normal. Calculated EF 60%. SUMMARY: Myocardial perfusion imaging study has ABNORMAL findings. CONCLUSION: 1. 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 No reversible ischemia 3. Normal exercise test Dictated by: Michael Kunz MD on 06/07/2023 at 12:39 Approved by: Michael Kunz MD on 06/07/2023 at 12:47 Dictated By: Michael Kunz M.D. Signed By: 06/07/23 1249 DD/ 1248 TD/TT: Director Of Consumer Marketing: Procedure Note Radiology, Radiologist, MD - 06/07/2023 [place] [address] Nuclear Medicine Report Signed Patient: OBINNA STARK RMR#: [id number] : 1940cct:[id number] Age/Sex: 82 / MADM Date: 06/06/23 Loc: NM Attending Dr: BENITA PANCHAL APRN Ordering Physician: BENITA PANCHAL APRN Date of Service: 06/06/23 Procedure(s): NM jael perf SPECT rest str Accession Number(s): [id number] cc: HECTOR ECHEVERRIA ; BENITA PANCHAL APRN Patient Name: OBINNA STARK MR#: [id number] : 1940 Exam Date: 06/06/2023 Ordering Doctor: BENITA PANCHAL CNP RADIOLOGY REPORT PROCEDURE: NM JAEL PERF SPECT REST STR COMPARISON: None. INDICATIONS: DYSPNEA TECHNIQUE: Exam Description: Stress/Rest one day protocol gated SPECT Rest Imagin.8 mCi Tc-99m Cardiolite IV on 06/06/2023 Stress Imaging 30.2 mCi Tc-99m Cardiolite IV on 06/06/2023 Exercise Protocol: 0.4 mg Lexiscan given IV Heart Rate (bpm): Rest: 80 Max: 96 PMHR: 70 Blood Pressure: Rest: 146/72 Max: 146/72 Symptoms: Rest and peak stress ECG findings were normal and the exercise portion ofthe study was normal per attending physician Dr. Braswell . For more details please see separate cardiac stress test report. FINDINGS: QUALITY OF STUDY: PERFUSION DEFECT: LOCATION: Basal inferoseptal. Basal inferior. Mid-inferoseptal. Mid-inferior. Apical inferior. [place]. SIZE: Large (5 or more segments). SEVERITY: Moderate. TYPE: Persistent. WALL MOTION: Mild hypokinesis: LV SIZE: Normal. 101 mL. TID / TCD: None; 0.8 LVEF: Normal. Calculated EF 60%. SUMMARY: Myocardial perfusion imaging study has ABNORMAL findings. CONCLUSION: 1. Large moderate severity defect in the inferior wall with noredistribution 2. No reversible ischemia 3. Normal exercise test Dictated by: Michael Kunz MD on 06/07/2023 at 12:39 Approved by: Michael Kunz MD on 06/07/2023 at 12:47 Dictated By: Michael Kunz M.D. Signed By:06/07/23 1249 DD/ 1248 TD/TT: Director Of Consumer Marketing: us Generic External Data Provider [facility] Final Result documented in this encounter Visit Diagnoses Not on filedocumented in this encounter Care Teams Senior Storage Administrator Relationship Specialty Start Date End Date Hector Echeverria MD [address] [place] [address] PCP - General Internal Medicine 08/09/22 Hector Echeverria MD [address] [place] [address] PCP - ACO Reach 08/02/23Monday, BANDAR Phelan [address] [place] [address] Licensed Practical Nurse Family Medicine 02/08/24 05/10/24 Puja Palacio, SHEY Licensed Practical Nurse Family Medicine 05/10/24 06/21/24 Jayashree Vanegas LPN 06/21/24 documented as of this encounter
--- OUTSIDE RECORDS SUMMARY | 2024-09-05 12:05 | XMS_ITS | Clinical Summary ---
Author Organization [employer] tem Address [id number] [address] [place] [address] Care Team Providers Care Sander Machine Name Role Phone Hector Echeverria MD Primary Care Provider [phone] Allergies Active Allergy Reactions Criticality Noted Date Comments Rofecoxib High 04/21/2017 Internal bleeding Medications phenytoin (DILANTIN) 100 mg ER capsule Take by mouth 2 (two) times a day. Active clopidogrel (PLAVIX) 75 mg tablet Take 75 mg by mouth daily. Active rosuvastatin (CRESTOR) 5 mg tablet Take 5 mg by mouth daily. Active gabapentin (NEURONTIN) 300 mg capsule Take 300 mg by mouth 3 (three) times a day. Active tiZANidine (ZANAFLEX) 4 mg tablet Take 4 mg by mouth every 6 (six) hours as needed for muscle spasms. Active HYDROcodone-acet aminophen (NORCO) 5-325 mg per tablet Take 1 tablet by mouth every 6 (six) hours as needed for pain. Active aspirin 81 mg Take 81 mg by mouth daily. Active vitamin E 600 UNIT capsule Take 400 Units by mouth daily. Active omega-3 fatty acids-fish oil (FISH OIL) 300-1,000 mg capsule Take 2 g by mouth daily. Active Social History Tobacco Use Types Packs/Day Years Used Date Smoking Tobacco: Every Day Cigarettes Smokeless Tobacco: Never Alcohol Use Standard Drinks/Week Comments No 0 (1 standard drink = 0.6 oz pur e alcohol) Childcare Answer Date Recorded Childcare Unknown 09/12/2018 Employment Answer Date Recorded Employment Unknown 09/12/2018 Purpose - Life Answer Date Recorded Purpose and direction in life Unknown Sex and Gender Information Value Date Recorded Sex Assigned at Not on file Legal Sex Male 11:56 AM EDT Gender Identity Not on file Sexual Orientation Not on file Last Filed Vital Signs Vital Sign Reading Time Taken Comments Blood Pressure 131/81 05/10/2017 11:15 AM EST Pulse 64 05/10/2017 11:15 AM EST Temperature 35.7 C (96.3 F) 05/10/2017 10:10 AM EST Respiratory Rate 14 05/10/2017 10:58 AM EST Oxygen Saturation 92% 05/10/2017 11:15 AM EST Inhaled Oxygen Concentration - - Weight 80.7 kg (178 lb) 05/10/2017 6:38 AM EST Height 180.3 cm (5' 11 ) 05/10/2017 6:38 AM EST Body Mass Index 24.83 05/10/2017 6:38 AM EST Plan of Treatment Not on file Medical Devices Implanted Type Area Qual Field Manager Device Identifier Shelf Expiration Date Model / Serial / Lot Speedbridge - Sna - [id number] Implanted:Qty: 1 on 05/10/2017 by Doe Harvey DO at [facility] Orange Right: Shoulder [employer] 07/01/2018 [id number] / NA / [id number] Insurance MEDICARE [facility] Care Teams Sander Machine Relationship Specialty Start Date End Date Hector E[facility]verria MD [facility] [address] [phone] PCP - General Internal Medicine 04/21/17
--- OUTSIDE RECORDS SUMMARY | 2024-09-05 12:06 | XMS_ITS | Encounter Summary ---
Author Organization [facility] Address [address] [place] [address] Care Team Providers Care Hospice Case Manager Name Role Phone Hector Echeverria MD Primary Care Provider [phone] Hector Echeverria MD Unavailable [phone] Jayashree Vanegas LPN Unavailable Unavailable Encounter Details Date Type Department Care Team (Latest Contact Info) Description 09/05/2024 Travel Social History Tobacco Use Types Packs/Day Years [...] often do you attend chur ch or yarsanism services? Never 02/08/2024 Do you belong to any clubs o r organizations such as religion groups, unions, fraternal or athletic groups, or [...] Recorded Patient Health Questionnaire-2 Score 0 09/05/2024 [facility] Occupat ional [facility] - Occupational Stress [...] any time in the past 12 m [facility], were you homeless or living in a fpc (including now)? No 02/08/2024 Sex and Gender Information Value Date Recorded Sex Assigned at Not on file Legal Sex Male 7:01 PM EDT Gender Identity Not on file Sexual Orientation Not on file documented as of this encounter Functional Status * Over the [...] LP N documented as of this encounter Plan of Treatment Upcoming Encounters Date Type Department Care Team (Late st Contact Info) Description 12/20/2024 9:30 AM EDT Office Visit [facility] [address] [place] [address] Hector Echeverria MD [address] [place] [address] documented as of this encounter Visit Diagnoses Not on filedocumented in this encounter Care Teams Hospice Case Manager Relationship Specialty Start Date End Date Hector Echeverria MD [address] [place] [address] PCP - General Internal Medicine 08/09/22 Hector Echeverria MD 112 [facility] 110 [place] [address] PCP - ACO Reach 08/02/23 Jayashree Vanegas LPN 06/21/24 documented as of this encounter
--- OUTSIDE RECORDS SUMMARY | 2024-09-05 12:06 | XMS_ITS | Encounter Summary ---
Author Organization [facility] Address [address] [facility] [place] [address] Care Team Providers Care Technology Instructor Name Role Phone Hector Echeverria MD Primary Care Provider [phone] Hector Echeverria MD Unavailable [phone] Monday, Zhane PORTILOL Unavailable [phone] Puja Palacio RN Unavailable Jayashree Vanegas SUPERVISOR [employer] Unavailable Unavailable Encounter Details Date Type Department Care Team (Late Contact Info) Description 11/07/2023 Abstract [facility] [address] [facility] [address] [place] [phone] Hector Echeverria MD [address] [facility] [address] [place] [address] Social History Tobacco Use Types Packs/Day Years [...] Office Visit [facility] [address] [facility] [address] [place] [address] Hector Echeverria MD [address] [facility] [address] [place] [address] documented as of this encounter Visit Diagnoses Not on filedocumented in this encounter Care Teams Technology Instructor Relationship Specialty Start Date End Date Hector Echeverria MD [address] [place] [address] PCP - General Internal Medicine 08/09/22 Hector Echeverria MD [address] [place] [address] PCP - ACO Reach 08/02/23MondayZhane LPN [address] [place] [address] Licensed Practical Nurse Family Medicine 02/08/24 05/10/24 Puja Palacio, RN Licensed Practical Nurse Family Medicine 05/10/24 06/21/24 Jayashree Vanegas LPN 06/21/24 documented as of this encounter
--- OUTSIDE RECORDS SUMMARY | 2024-09-05 12:06 | XMS_ITS | Encounter Summary ---
Author Organization [facility] Address [address] [facility] [place] [address] Care Team Providers Care Coat Hanger Shaper Machine Operator Name Role Phone Hector Echeverria MD Primary Care Provider Hector Echeverria MD Unavailable [phone] Monday, Zhane PORTILLO Unavailable [phone] Puja Palacio RN Unavailable Jayashree Vanegas EXTRACTION OPERATOR Unavailable Unavailable Encounter Details Date Type Department Care Team (Late Contact Info) Description 11/06/2023 Abstract [facility] [address] [facility] [address] [place] [phone] Hector Echeverria MD [address] [place] [address] [facility] 110 [place] [address] Social History Tobacco Use Types Packs/Day Years [...] Office Visit [facility] [address] [facility] [address] [place] [address] Hector Echeverria MD 112 [facility] 110 [place] [address] documented as of this encounter Visit Diagnoses Not on filedocumented in this encounter Care Teams Coat Hanger Shaper Machine Operator Relationship Specialty Start Date End Date Hector Echeverria MD [address] [place] [address] PCP - General Internal Medicine 08/09/22 Hector Echeverria MD [address] [place] [address] PCP - ACO Reach 08/02/23MondayZhane LPN [address] [place] [address] Licensed Practical Nurse Family Medicine 02/08/24 05/10/24 Puja Palacio, RN Licensed Practical Nurse Family Medicine 05/10/24 06/21/24 Jayashree Vanegas LPN 06/21/24 documented as of this encounter
--- OUTSIDE RECORDS SUMMARY | 2024-09-05 12:06 | XMS_ITS | Encounter Summary ---
Author Organization [facility] Address [address] [place] [address] Care Team Providers Care Pellet Mill Operator Name Role Phone Hector Echeverria MD Primary Care Provider [phone] Hector Echeverria MD Unavailable [phone] Jayashree Vanegas LPN Unavailable Unavailable Encounter Details Date Type Department Care Team (Late st Contact Info) Description 09/04/2024 Patient Outreach [facility] [address] [place] [address] Puja Palacio, SHEY Social History Tobacco Use Types Packs/Day Years Used Date Smoking Tobacco: Every Day Cigars Started: 2008 Alcohol Use Standard Drinks/Week [...] often do you attend chur ch or caodaism services? Never 02/08/2024 Do you belong to any clubs o r organizations such as orthodoxy groups, unions, fraternal or athletic groups, or [...] Recorded Patient Health Questionnaire-2 Score 0 09/05/2024 [facility] of Occupat ional [facility] - Occupational Stress Questionnaire Answer Date [...] any time in the past 12 m [facility], were you homeless or living in a residential (including now)? No 02/08/2024 Sex and Gender Information Value Date Recorded Sex Assigned at Not on file Legal Sex Male 7:01 PM EDT Gender Identity Not on file Sexual Orientation Not on file documented as of this encounter Progress Notes * Puja Palacio RN - 09/04/2024 11:43 AM EDT Chart reviewed. Spoke with pt on phone. Reports he is doing well excepts was sick recently and continues to cough. Would like to see provider for evaluation. Appt made with Latasha BAZAN 09/05 at 930am. Meds reviewed and pt declines needs. Advise pt to call with needs/concerns. Discussed care plan and updated. documented in this encounter Plan of Treatment Upcoming Encounters Date Type Department Care Team (Late st Contact Info) Description 12/20/2024 9:30 AM EDT Office Visit [facility] 112 [facility] 110 [place] [address] Hector Echeverria MD [address] [address] documented as of this encounter Visit Diagnoses Diagnosis Benign essential hypertension (CMS/HCC)- Primary Essential hypertension, benign Atherosclerosis of [place] coronary artery of [place] heart without angina pectoris (CMS/HCC) documented in this encounter Care Teams Pellet Mill Operator Relationship Specialty Start Date End Date Hector Echeverria MD 112 [facility] 110 [place] [address] PCP - General Internal Medicine 08/09/22 Hector Echeverria MD 112 [facility] 110 [place] [address] PCP - ACO Reach 08/02/23 Jayashree Vanegas LPN 06/21/24 documented as of this encounter
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
--- OUTSIDE RECORDS SUMMARY | 2024-09-05 12:06 | XMS_ITS | Encounter Summary ---
Author Organization [facility] Address [address] [facility] [place] [address] Care Team Providers Care Chief Green Officer Name Role Phone Hector Echeverria MD Primary Care Provider Hector Echeverria MD Unavailable [phone] Monday, Zhane PORTILLO Unavailable [phone] Puja Palacio RN Unavailable [phone] Jayashree Vanegas FELLMONGERING MACHINE OPERATOR Unavailable Unavailable Encounter Details Date Type Department Care Team (Late st Contact Info) Description 07/01/2023 Clinisync Result Encounter [facility] External Department Unsolicited [...] CI FM [address] [place] [address] Hector Echeverria MD [address] [facility] 110 [place], [place] [id number] documented as of this encounter Procedures Procedure Name Priority Date/Time Associated Diagnosis Comments XR CHEST 2V 07/01/2023 5:19 AM EDT documented in this encounter Results * XR CHEST 2V (07/01/2023 5:19 AM EDT) Anatomical Region Laterality Modality Other 07/01/2023 5:19 AM EDT Narrative 07/01/2023 5:22 [place] [address] XRay Report Signed Patient: MARLI STARK MR#: [id number] : 1940 Acct:[id number] Age/Sex: 82 / M ADM Date: 06/30/23 Loc: CARD Attending Dr: BENITA PANCHAL APRN Ordering Physician: BENITA PANCHAL APRN Date of Service: 06/30/23 Procedure(s): XR chest 2V Accession Number(s): [id number] cc: HECTOR ECHEVERRIA ; BENITA PANCHAL APRN [place] [address] Patient Name: MARLI STARK MRN: [id number] date: 1940 Sex: M Assigned Patient Location: CARD Current Patient Location: Accession/Order Number: [id number] Exam Date: 06/30/2023 11:00 Report Date: 07/01/2023 05:19 At the request of: BENITA PANCHAL Procedure: XR chest 2V EXAMINATION: XR chest 2V HISTORY: Shortness Of Breath R06.02 COMPARISON: XR chest 11/30/2020 FINDINGS: LUNGS: Hyperexpanded lungs with coarsening of the interstitial markings suggestive COPD. No appreciable mass or acute infiltrates. VASCULATURE: No increased pulmonary vasculature. PLEURA: No pneumothorax, effusion, or pleural thickening. CARDIAC: No cardiomegaly or cardiac silhouette abnormality. MEDIASTINUM: No visible mass or adenopathy. BONES: Bone anchors within right humeral head suggesting rotator cuff repair. No acute bone abnormality or bone lesion. OTHER: Negative. XR/XR chest 2V IMPRESSION: 1. Chronic interstitial changes suggestive of COPD. 2. No appreciable acute abnormality. Electronically authenticated by: MARCELINO SMITH Date: 07/01/2023 05:19 Dictated By: Marcelino Smith M.D. Signed By: 07/01/23521 DD/ 8 TD/TT: Equine Pharmacology Technician: Procedure Note Radiology, Radiologist, - 07/05/2023 [place] [address] XRay Report Signed Patient: MARLI STARK RMR#: [id number] : 9Acct:[id number] Age/Sex: 82 / MADM Date: 06/30/23 Loc: CARD Attending Dr: BENITA PANCHAL APRN Ordering Physician: BENITA PANCHAL APRN Date of Service: 06/30/23 Procedure(s): XR chest 2V Accession Number(s): [id number] cc: HECTOR ECHEVERRIA ; BENITA PANCHAL APRN [place] [address] Patient Name: MARLI STARK MRN: [id number] date: 1940 Sex: M Assigned Patient Location: CARD Current Patient Location: Accession/Order Number: [id number] Exam Date: 06/30/2023 11:00 Report Date: 07/01/2023 05:19 At the request of: BENITA PANCHAL Procedure: XR chest 2V EXAMINATION: XR chest 2V HISTORY: Shortness Of Breath R06.02 COMPARISON: XR chest 11/30/2020 FINDINGS: LUNGS: Hyperexpanded lungs with coarsening of the interstitial markings suggestive COPD. No appreciable mass or acute infiltrates. VASCULATURE: No increased pulmonary vasculature. PLEURA: No pneumothorax, effusion, or pleural thickening. CARDIAC: No cardiomegaly or cardiac silhouette abnormality. MEDIASTINUM: No visible mass or adenopathy. BONES: Bone anchors within right humeral head suggesting rotator cuffrepair. No acute bone abnormality or bone lesion. OTHER: Negative. XR/XR chest 2V IMPRESSION: 1. Chronic interstitial changes suggestive of COPD. 2. No appreciable acute abnormality. Electronically authenticated by: MARCELINO SMITH Date: 07/01/2023 05:19 Dictated By: Marcelino Smith M.D. Signed By:07/01/23521 DD/ 8 TD/TT: Equine Pharmacology Technician: us Generic External Data Provider [facility] Final Result documented in this encounter Visit Diagnoses Not on filedocumented in this encounter Care Teams Chief Green Officer Relationship Specialty Start Date End Date Hector Echeverria MD [address] [place] [address] PCP - General Internal Medicine 08/09/22 Hector Echeverria MD [address] [place] [address] PCP - ACO Reach 08/02/23Monday, BANDAR Phelan [address] [place] [address] Licensed Practical Nurse Family Medicine 02/08/24 05/10/24 Puja Palacio, RN Licensed Practical Nurse Family Medicine 05/10/24 06/21/24 Jayashree Vanegas LPN 06/21/24 documented as of this encounter
--- OUTSIDE RECORDS SUMMARY | 2024-09-05 12:06 | XMS_ITS | Encounter Summary ---
Author Organization [facility] Address [address] [place] [address] Care Team Providers Care Local Area Network Administrator Name Role Phone Hector Echeverria MD Primary Care Provider Hector Echeverria MD Unavailable [phone] Monday, Zhane PORTILLO Unavailable [phone] Pjua Palacio RN Unavailable Jayashree Vanegas HYDROGEN POWER PLANT ENGINEER Unavailable Unavailable Encounter Details Date Type Department Care Team (Late st Contact Info) Description 04/24/2024 Abstract [facility] CI FM [address] [facility] [facility] 110 [place] [address] Hector Echeverria MD [address] [facility] 110 [place] [address] Social History Tobacco Use Types Packs/Day Years [...] often do you attend chur ch or restoration services? Never 02/08/2024 Do you belong to any clubs o r organizations such as scientology groups, unions, fraternal or athletic groups, or [...] and heating? Not hard at all 02/08/2024 [facility] - Occupational Stress Questionnaire Answer Date [...] any time in the past 12 m ont, were you homeless or living in a group home (including now)? No 02/08/2024 Sex and Gender [...] Visit [facility] CI FM [address] [facility] 110 [place] [address] Hector Echeverria MD [address] [facility] 110 [place] [address] documented as of this encounter Visit Diagnoses Not on filedocumented in this encounter Care Teams Local Area Network Administrator Relationship Specialty Start Date End Date Hector Echeverria MD [address] [facility] 110 [place] [address] PCP - General Internal Medicine 08/09/22 Hector Echeverria MD [address] [facility] 110 [place] [address] PCP - ACO Reach 08/02/23Monday, BANDAR Phelan [address] [place] [address] Licensed Practical Nurse Family Medicine 02/08/24 05/10/24 Puja Palacio, SHEY Licensed Practical Nurse Family Medicine 05/10/24 06/21/24 Jayashree Vanegas LPN 06/21/24 documented as of this encounter
--- OUTSIDE RECORDS SUMMARY | 2024-09-05 12:06 | XMS_ITS | Encounter Summary ---
Author Organization [facility] Address [address] [facility] [place] [address] Care Team Providers Care Marine Insulator Name Role Phone Hector Echeverria MD Primary Care Provider [phone] Hector Echeverria MD Unavailable [phone] Monday, Zhane PORTILLO Unavailable [phone] Puja Palacio RN Unavailable [phone] Jayashree Vanegas SCREEN TENDER Unavailable Unavailable Encounter Details Date Type Department Care Team (Late Contact Info) Description 01/29/2024 Abstract [facility] CI FM [address] [facility] 110 [place] [address] Hector Echeverria MD [address] [facility] 110 [place] [address] Social History Tobacco Use Types Packs/Day Years [...] Office Visit [facility] CI FM [address] [facility] 110 [place] [address] Hector Echeverria MD [address] [facility] 110 [place] [address] documented as of this encounter Visit Diagnoses Not on filedocumented in this encounter Care Teams Marine Insulator Relationship Specialty Start Date End Date Hector Echeverria MD [address] [place] [address] PCP - General Internal Medicine 08/09/22 Hector Echeverria MD [address] [place] [address] PCP - ACO Reach 08/02/23MondayZhane LPN [address] [place] [address] Licensed Practical Nurse Family Medicine 02/08/24 05/10/24 Puja Palacio, RN Licensed Practical Nurse Family Medicine 05/10/24 06/21/24 Jayashree Vanegas LPN 06/21/24 documented as of this encounter
--- OUTSIDE RECORDS SUMMARY | 2024-09-05 12:06 | XMS_ITS | Encounter Summary ---
Author Organization [facility] Address [address] [place] [address] Care Team Providers Care Salt Washer Harvesting Station Name Role Phone Hector Echeverria MD Primary Care Provider Hector Echeverria MD Unavailable [phone] Monday, Zhane STAUFFERN Unavailable [phone] Puja Palacio RN Unavailable Jayashree Vanegas SURGICAL PHYSICIAN ASSISTANT Unavailable Unavailable Encounter Details Date Type Department Care Team (Late st Contact Info) Description 11/22/2023 Clinisync Result Encounter NOMS External Department Unsolicited Beck Alvarenga PA 112 [facility] 110 [place], [place] [id number] Social History Tobacco Use Types Packs/Day Years [...] EDT Office Visit [facility] CI FM 112 [facility] 110 [place] [address] Hector Echeverria MD 112 [facility] 110 [place], [place] [address] documented as of this encounter Procedures Procedure Name Priority Date/Time Associated Diagnosis Comments XR RIBS LEFT INCLUDE CHEST (MIN 3 VIEWS) 11/22/2023 6:37 AM EDT documented in this encounter Results * XR RIBS LEFT INCLUDE CHEST (MIN 3 VIEWS) (11/22/2023 6:37 AM EDT) Anatomical Region Laterality Modality Radiographic Debbie ging 11/22/2023 6:37 AM EDT Narrative 11/22/2023 6:40 [place] [address] XRay Report Signed Patient: MARLI STARK MR#: [id number] : 1940 Acct:[id number] Age/Sex: 83 / M ADM Date: 11/21/23 Loc: RAD Attending Dr: BECK ALVARENGA Ordering Physician: BECK ALVARENGA Date of Service: 11/21/23 Procedure(s): XR ribs LT min 3V w CXR1V Accession Number(s): [id number] cc: HECTOR ECHEVERRIA ; BECK ALVARENGA [place] [address] Patient Name: MARLI STARK MRN: [id number] date: 1940 Sex: M Assigned Patient Location: [facility] Current Patient Location: Accession/Order Number: [id number] Exam Date: 11/21/2023 10:35 Report Date: 11/22/2023 06:37 At the request of: BECK ALVARENGA Procedure: XR ribs LT min 3V w CXR1V EXAMINATION: XR ribs LT min 3V w CXR1V HISTORY: Left Side Rib Pain R07.81 ; posterior left rib pain after injury COMPARISON: XR chest 06/30/2023 FINDINGS: LUNGS: Expanded lungs with chronic interstitial changes and coarsening of interstitial markings. Mild haziness within mid and lower left lung and small opacity within left lateral costal phrenic angle. PLEURA: Trace amount of pleural fluid on left. MEDIASTINUM: No visible mass or adenopathy. CARDIAC: No cardiomegaly or cardiac silhouette abnormality. RIBS: Nondisplaced fracture lateral left seventh rib. OTHER: Negative. XR/XR ribs LT min 3V w CXR1V IMPRESSION: 1. Nondisplaced fracture of lateral left seventh rib. 2. Mild atelectasis or possibly infiltrates within left lung and tiny pleural effusion. No pneumothorax. Electronically authenticated by: MARCELINO SMITH Date: 11/22/2023 06:37 Dictated By: Marcelino Smith M.D. Signed By: 11/22/23 0640 DD/ TD/TT: Operator Specialist Communications: Procedure Note Radiology, Radiologist, MD - 11/22/2023 [place] [address] XRay Report Signed Patient: MARLI STARK RMR#: [id number] : 1940cct:[id number] Age/Sex: 83 / MADM Date: 11/21/23 Loc: RAD Attending Dr: BECK ALVARENGA Ordering Physician: BECK ALVARENGA Date of Service: 11/21/23 Procedure(s): XR ribs LT min 3V w CXR1V Accession Number(s): [id number] cc: HECTOR ECHEVERRIA ; BECK ALVARENGA [place] [address] Patient Name: MARLI STARK MRN: [id number] date: 1940 Sex: M Assigned Patient Location: [facility] Current Patient Location: Accession/Order Number: [id number] Exam Date: 11/21/2023 10:35 Report Date: 11/22/2023 06:37 At the request of: BECK ALVARENGA Procedure: XR ribs LT min 3V w CXR1V EXAMINATION: XR ribs LT min 3V w CXR1V HISTORY: Left Side Rib Pain R07.81 ; posterior left rib pain after injury COMPARISON: XR chest 06/30/2023 FINDINGS: LUNGS: Expanded lungs with chronic interstitial changes and coarsening of interstitial markings. Mild haziness within mid and lower left lung andsmall opacity within left lateral costal phrenic angle. PLEURA: Trace amount of pleural fluid on left. MEDIASTINUM: No visible mass or adenopathy. CARDIAC: No cardiomegaly or cardiac silhouette abnormality. RIBS: Nondisplaced fracture lateral left seventh rib. OTHER: Negative. XR/XR ribs LT min 3V w CXR1V IMPRESSION: 1. Nondisplaced fracture of lateral left seventh rib. 2. Mild atelectasis or possibly infiltrates within left lung and tinypleural effusion. No pneumothorax. Electronically authenticated by: MARCELINO SMITH Date: 11/22/2023 06:37 Dictated By: Marcelino Smith M.D. Signed By:11/22/23639 DD/ 6 TD/TT: Operator Specialist Communications: Beck BAZAN IMG XR PROCEDURES Final Result documented in this encounter Visit Diagnoses Not on filedocumented in this encounter Care Teams Salt Washer Harvesting Station Relationship Specialty Start Date End Date Hector Echeverria MD [address] [place] [address] PCP - General Internal Medicine 08/09/22 Hector Echeverria MD [address] [place] [address] PCP - ACO Reach 08/02/23MondayZhane LPN [address] [place] [address] Licensed Practical Nurse Family Medicine 02/08/24 05/10/24 Puja Palacio, SHEY Licensed Practical Nurse Family Medicine 05/10/24 06/21/24 Jayashree Vanegas LPN 06/21/24 documented as of this encounter
--- OUTSIDE RECORDS SUMMARY | 2024-09-05 12:06 | XMS_ITS | Encounter Summary ---
Author Organization [facility] Address [address] [place] [address] Care Team Providers Care Tangible Personal Property Appraiser Name Role Phone Hector Echeverria MD Primary Care Provider [phone] Reason for Visit * Reason Comments Med Refill Encounter Details Date Type Department Care Team ([facility] st Contact Info) Description 09/20/2022 Refill [facility] [address] [place] [address] Guanakito Restrepo MD [address] [facility] [address] [facility] [place] [address] Peripheral vascular disease, unspecified Social History Tobacco Use Types Packs/Day Years Used Date Smoking Tobacco: Every Day Cigarettes Passive Smoke Exposure: Never Smokeless Tobacco: Never Alcohol Use Standard Drinks/Week Comments Never 0 (1 standard drink = 0.6 oz pur e alcohol) Sex and Gender Information Value Date Recorded Sex Assigned at Not on file Gender Identity Not on file Sexual Orientation Not on file documented as of this encounter Plan of Treatment Not on file documented as of this encounter Visit Diagnoses Diagnosis Peripheral vascular disease, unspecified documented in this encounter Care Teams Tangible Personal Property Appraiser Relationship Specialty Start Date End Date Hector Echeverria MD [address] [place] [address] PCP - General 01/05/22 documented as of this encounter
--- OUTSIDE RECORDS SUMMARY | 2024-09-05 12:06 | XMS_ITS | Encounter Summary ---
Author Organization [facility] Address [address] [place] [address] Care Team Providers Care Branch Sales Manager Name Role Phone Hector Echeverria MD Primary Care Provider [phone] Hector Echeverria MD Unavailable [phone] Puja Palacio RN Unavailable [phone] Jayashree Vanegas LPN Unavailable Unavailable Encounter Details Date Type Department Care Team (Late st Contact Info) Description 06/17/2024 Abstract [facility] 112 [facility] 110 [place] [address] Hector Echeverria MD 112 [facility] 110 [place] [address] Social History Tobacco Use Types Packs/Day Years [...] How often do you attend chur or hindu services? Never 02/08/2024 Do you belong to any clubs o r organizations such as adventism groups, unions, fraternal or athletic groups, or [...] Date Recorded Patient Health Questionnaire-2 Score 0 06/14/2024 [facility] - Occupational Stress Questionnaire Answer Date [...] time in the past 12 m [facility], were you homeless or living in a fci (including now)? No 02/08/2024 Sex and Gender [...] WAY [facility] 110 [place] [address] Hector Echeverria MD [address] [facility] 110 [place] [address] documented as of this encounter Visit Diagnoses Not on filedocumented in this encounter Care Teams Branch Sales Manager Relationship Specialty Start Date End Date Hector Echeverria MD [address] [facility] 110 [place] [address] PCP - General Internal Medicine 08/09/22 Hector Echeverria MD [address] [facility] [address] [place] [address] PCP - ACO Reach 08/02/23 Puja Palacio, RN Licensed Practical Nurse Family Medicine 05/10/24 06/21/24 Jayashree Vanegas LPN 06/21/24 documented as of this encounter
--- OUTSIDE RECORDS SUMMARY | 2024-09-05 12:06 | XMS_ITS | Encounter Summary ---
Author Organization [facility] Address [address] [place] [address] Care Team Providers Care Sales Marketing Manager Name Role Phone Hector Echeverria MD Primary Care Provider [phone] Reason for Visit * Reason Comments Med Refill Encounter Details Date Type Department Care Team ([facility] st Contact Info) Description 09/22/2022 Refill [facility] [address] [place] [address] Guanakito Restrepo MD [address] [facility] [address] [employer] [place] [address] Essential (primary) hypertension Social History Tobacco Use Types Packs/Day Years [...] as of this encounter Visit Diagnoses Diagnosis Essential (primary) hypertension Unspecified essential hypertension documented in this encounter Care Teams Sales Marketing Manager Relationship Specialty Start Date End Date Hector Echeverria MD [address] [place] [address] PCP - General 01/05/22 documented as of this encounter
--- OUTSIDE RECORDS SUMMARY | 2024-09-05 12:06 | XMS_ITS | Encounter Summary ---
Author Organization [facility] Address [address] [facility] [place] [address] Care Team Providers Care Guest Relations Manager Name Role Phone Hector Echeverria MD Primary Care Provider [phone] Hector Echeverria MD Unavailable [phone] Monday, Zhane PORTILLO Unavailable [phone] Puja Palacio RN Unavailable Jayashree Vanegas MANAGER MONITORING Unavailable Unavailable Encounter Details Date Type Department Care Team (Late Contact Info) Description 01/29/2024 Abstract [facility] CI FM [address] [facility] 110 [place] [address] Hector Echeverria MD [address] [facility] 110 [place] [address] Social History Tobacco Use Types Packs/Day Years [...] Office Visit [facility] CI FM [address] [facility] 110 [place] [address] Hector Echeverria MD 112 [facility] 110 [place] [address] documented as of this encounter Visit Diagnoses Not on filedocumented in this encounter Care Teams Guest Relations Manager Relationship Specialty Start Date End Date Hector Echeverria MD [address] [place] [address] PCP - General Internal Medicine 08/09/22 Hector Echeverria MD [address] [place] [address] PCP - ACO Reach 08/02/23MondayZhane LPN [address] [place] [address] Licensed Practical Nurse Family Medicine 02/08/24 05/10/24 Puja Palacio, RN Licensed Practical Nurse Family Medicine 05/10/24 06/21/24 Jayashree Vanegas LPN 06/21/24 documented as of this encounter
--- OUTSIDE RECORDS SUMMARY | 2024-09-05 12:06 | XMS_ITS | Encounter Summary ---
Author Organization 

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
--- OUTSIDE RECORDS SUMMARY | 2024-09-05 12:06 | XMS_ITS | Encounter Summary ---
Author Organization [facility] Address [address] [facility] [place] [address] Care Team Providers Care Split Leather Mosser Name Role Phone Hector Echeverria MD Primary Care Provider Hector Echeverria MD Unavailable [phone] Monday, Zhane PORTILLO Unavailable [phone] Puja Palacio RN Unavailable Jayashree Vanegas LOOP SEWER Unavailable Unavailable Encounter Details Date Type Department Care Team (Late Contact Info) Description 01/29/2024 Abstract [facility] [address] [facility] [address] [place] [phone] Hector Echeverria MD [address] [facility] 110 [place] [address] Social History Tobacco Use Types Packs/Day Years [...] Office Visit [facility] [address] [facility] [address] [place] [address] Hector Echeverria MD 112 [facility] 110 [place] [address] documented as of this encounter Visit Diagnoses Not on filedocumented in this encounter Care Teams Split Leather Mosser Relationship Specialty Start Date End Date Hector Echeverria MD [address] [place] [address] PCP - General Internal Medicine 08/09/22 Hector Echeverria MD [address] [place] [address] PCP - ACO Reach 08/02/23MondayZhane LPN [address] [place] [address] Licensed Practical Nurse Family Medicine 02/08/24 05/10/24 Puja Palacio, RN Licensed Practical Nurse Family Medicine 05/10/24 06/21/24 Jayashree Vanegas LPN 06/21/24 documented as of this encounter
--- OUTSIDE RECORDS SUMMARY | 2024-09-05 12:06 | XMS_ITS | Encounter Summary ---
Author Organization [facility] Address [address] [facility] [place] [address] Care Team Providers Care Bridge Opener Name Role Phone Hector Echeverria MD Primary Care Provider [phone] Hector Echeverria MD Unavailable [phone] Monday, Zhane PORTILLO Unavailable [phone] Puja Palacio RN Unavailable [phone] Jayashree Vanegas SAFETY AND HEALTH MANAGER Unavailable Unavailable Encounter Details Date Type Department Care Team (Late Contact Info) Description 01/29/2024 Abstract [facility] [address] [facility] [address] [place] [phone] Hector Echeverria MD [address] [place] [facility] 110 [place] [address] Social History Tobacco Use Types Packs/Day Years [...] Office Visit [facility] [address] [facility] [address] [place] [address] Hector Echeverria MD 112 [facility] 110 [place] [address] documented as of this encounter Visit Diagnoses Not on filedocumented in this encounter Care Teams Bridge Opener Relationship Specialty Start Date End Date Hector Echeverria MD [address] [place] [address] PCP - General Internal Medicine 08/09/22 Hector Echeverria MD [address] [place] [address] PCP - ACO Reach 08/02/23MondayZhane LPN [address] [place] [address] Licensed Practical Nurse Family Medicine 02/08/24 05/10/24 Puja Palacio, RN Licensed Practical Nurse Family Medicine 05/10/24 06/21/24 Jayashree Vanegas LPN 06/21/24 documented as of this encounter
--- OUTSIDE RECORDS SUMMARY | 2024-09-05 12:06 | XMS_ITS | Encounter Summary ---
Author Organization [facility] Address [address] [place] [address] Care Team Providers Care Restorative Care Technician Name Role Phone Hector Echeverria MD Primary Care Provider Reason for Visit * Reason Comments Med Refill Encounter Details Date Type Department Care Team (Late st Contact Info) Description 02/08/2023 Refill [facility] [address] [place] [address] Guanakito Restrepo MD [address] [facility] [address] [facility] [place] [address] Atherosclerosis of [place] coronary artery of [place] heart without angina pectoris Social History Tobacco Use Types Packs/Day Years Used Date Smoking Tobacco: Every Day Cigarettes Passive Smoke Exposure: Never Smokeless Tobacco: Never Alcohol Use Standard Drinks/Week Comments Never 0 (1 standard drink = 0.6 oz pur e alcohol) PHQ-2 Answer Date Recorded Patient Health Questionnaire-2 Score 1 01/16/2023 Sex and Gender Information Value Date Recorded Sex Assigned at Not on file Gender Identity Not on file Sexual Orientation Not on file documented as of this encounter Plan of Treatment Not on file documented as of this encounter Visit Diagnoses Diagnosis Atherosclerosis of [place] coronary artery of [place] heart without angina pectoris documented in this encounter Care Teams Restorative Care Technician Relationship Specialty Start Date End Date Hector Echeverria MD [address] [place] [address] PCP - General 01/05/22 documented as of this encounter
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
--- OUTSIDE RECORDS SUMMARY | 2024-09-05 12:06 | XMS_ITS | Encounter Summary ---
Author Organization [facility] Address [address] [place] [address] Care Team Providers Care House Fellow Name Role Phone Hector Echeverria MD Primary Care Provider [phone] Reason for Visit * Reason Comments Med Refill Encounter Details Date Type Department Care Team (Late st Contact Info) Description 04/26/2023 Refill [facility] [address] [place] [phone] Guanakito Restrepo MD [address] [facility] [address] [facility] [place] [address] Benign essential hypertension Social History Tobacco Use Types Packs/Day [...] encounter Visit Diagnoses Diagnosis Benign essential hypertension Essential hypertension, benign documented in this encounter Care Teams House Fellow Relationship Specialty Start Date End Date Hector Echeverria MD [address] [place] [address] PCP - General 01/05/22 documented as of this encounter
--- OUTSIDE RECORDS SUMMARY | 2024-09-05 12:06 | XMS_ITS | Encounter Summary ---
Author Organization [facility] Address [address] [place] [address] Care Team Providers Care Gear Grinding Machine Operator Name Role Phone Hector Echeverria MD Primary Care Provider [phone] Reason for Visit * Reason Comments Med Refill Encounter Details Date Type Department Care Team ([facility] st Contact Info) Description 08/11/2022 Refill [facility] Cardiology [address] [facility] [phone] Johanne Saucedo, CHIEF OF FIELD OPERATIONS [address] [place] [address] Essential (primary) hypertension Social History Tobacco Use [...] hypertension documented in this encounter Care Teams Gear Grinding Machine Operator Relationship Specialty Start Date End Date Hector Echeverria MD [address] [place] [address] PCP - General 01/05/22 documented as of this encounter
--- OUTSIDE RECORDS SUMMARY | 2024-09-05 12:06 | XMS_ITS | Encounter Summary ---
Author Organization [facility] Address [address] [facility] [place] [address] Care Team Providers Care Automatic Presser Name Role Phone Hector Echeverria MD Primary Care Provider Hector Echeverria MD Unavailable [phone] Monday, Zhane PORTILLO Unavailable [phone] Puja Palacio RN Unavailable Jayashree Vanegas BIT AND SHANK DEPARTMENT SUPERVISOR Unavailable Unavailable Encounter Details Date Type Department Care Team (Late Contact Info) Description 01/17/2024 Abstract [facility] [address] [facility] [facility] [address] [place] [phone] Hector Echeverria MD [address] [place] [facility] 110 [place] [address] Social History Tobacco Use Types Packs/Day Years [...] Office Visit [facility] [address] [facility] [address] [place] [address] Hector Echeverria MD 112 [facility] [address] [place] [address] documented as of this encounter Visit Diagnoses Not on filedocumented in this encounter Care Teams Automatic Presser Relationship Specialty Start Date End Date Hector Echeverria MD [address] [place] [address] PCP - General Internal Medicine 08/09/22 Hector Echeverria MD [address] [place] [address] PCP - ACO Reach 08/02/23MondayZhane LPN [address] [place] [address] Licensed Practical Nurse Family Medicine 02/08/24 05/10/24 Puja Palacio, RN Licensed Practical Nurse Family Medicine 05/10/24 06/21/24 Jayashree Vanegas LPN 06/21/24 documented as of this encounter
--- NOTE | 2024-09-05 12:09 | XR_ITS ---
The [address] [address] Patient Name: MARLI STARK MRN: [id number] date: 1940 Sex: M Assigned Patient Location: [facility] Current Patient Location: [facility] Accession/Order Number: [id number] Exam Date: 09/05/2024 12:51 Report Date: 09/05/2024 12:53 At the request of: LATASHA HUSSEIN Procedure: XR chest 2V PA AND LATERAL CHEST: CLINICAL HISTORY: Cough, wheezing and rhonchi at left lung base COMPARISON: 06/30/2023 The lungs are hyperinflated. There is no developing consolidation, effusion or pneumothorax. The cardiac, hilar and mediastinal silhouettes are within normal limits. There is no vascular congestion. The visualized bony structures are osteopenic. [place] pins are again visualized at the right humeral head. There is thoracolumbar scoliotic curvature and endplate spurring. XR/XR chest 2V IMPRESSION: OBSTRUCTIVE LUNG DISEASE. NO ACUTE CARDIOPULMONARY ABNORMALITY. Impression dictated by: Latasha Springer M.D. 09/05/2024 12:53 PM Dictation Location: [place] [address] Electronically authenticated by: [id number] Y Date: 09/05/2024 12:53
== END 2024-09-05 12:02 | disposition home or self-care (01) ==
LOC: RAD 12:03
PROVIDERS: PCP Internal Medicine; Visit Provider Physician Assistant
DX: R09.89 Other specified symptoms and signs involving the circulatory and respiratory systems (principal)
CPT/HCPCS: 71046

== ENCOUNTER 2025-04-01 12:23 | Outpatient (OUT) | payer MEDICARE, SELFPAY ==
--- OUTSIDE RECORDS SUMMARY | 2024-02-06 08:00 | XMS_ITS ---
Author Organization [facility] [place] Address [address] [place] [address] Care Team Providers Care Predatory Hunter Name Role Phone Hector Echeverria MD Primary Care Provider Randolph Booth Unavailable [phone] Allergies Allergen (clinical drug ingredient) Drug/Non Drug Allergy documented on EMR Reaction Allergy Type Onset Date Status celecoxib CeleBREX Unknown Drug Allergy ActiveatorvastatinAtorvastatinUnknownDrug AllergyActiverofecoxibRofecoxib Internal BleedingDrug AllergyActive REASON FOR VISIT 3 MOS F/U COPD Medications Medication SIG (Take, Route, Frequency, Duration) Notes Start Date End Date Status Rosuvastatin Calcium 10 MG Oral; Duration: 90 Da ys ActiveprednisoLONE Acetate 1 %Ophthalmic; Duration: 30 DaysActiveCitalopram Hydrobromide 20 MGOral; Duration: 90 DaysActiveAnoro Ellipta 62.5-25 MCG/ACT1 puff Inhalation QD; Duration: 30 days10/24/2023ctiveamLODIPine Besylate 10 MG Oral; Duration: 90 DaysActiveLisinopril 10 MGOral; Duration: 90 DaysActive Latanoprost 0.005 %Ophthalmic; Duration: 90 DaysActiveClopidogrel Bisulfate 75 MGOral; Duration: 90 DaysActiveMoxifloxacin HCl 0.5 %Ophthalmic; Duration: 10 DaysActive Social History Tobacco Use: Social History Observation Description Date Details (start date - stop date) Current Smoker NA - NA Tobacco Control (Standard) Question Answer Notes Tobacco use: Current every day smoker Additional Findings: Tobacco userModerate cigarette smoker (10-19 cigs/day) Encounters Encounter Location Date Provider Diagnosis Pulmonary Medicine [address] [address] 02/06/2024 Randolph Rosas Plan Of Treatment No Information Procedure Notes * CategorySub-CategoryDetailNotesPFTData:PFT 06/30/2023:-FEV1/FVC: 45%-FEV1: 82%- FVC: 127%-XFH45-99%: 34%-Bronchodilator response: None-RV: 118%-T%- DLCO: 91%PFT 03/09/2016:-FEV1/FVC: 55%-FEV1: 93%-FVC: 122%-PGF79-23%: 40%-Bronchodilator response: None-RV: 114%-T%-DLCO: 57%PFT 03/17/2015:- FEV1/FVC: 54%-FEV1: 101%-FVC: 135%-FTK10-82%: 37%-Bronchodilator response: None-RV: 94%-T%-DLCO: 54% Progress Notes * Obinna STARK RDOB:1940 (84 yo M)Acc No.[id number]:02/06/2024 UNLOCKED PROGRESS NOTE Follow Up Patient: Erich YVONMELITA Obinna [place] :?Randolph Rosas DODOB:1940???Age:83 Y ???Sex:MaleDate:02/06/2024hone:[phone]:[address]-[id number]:Hector Echeverria MD Subjective: * Chief Complaints: * 1 . 3 MOS F/U COPD. * Medical History: C entrilobular emphysema, CAD (coronary artery disease), PAD (peripheral artery disease), HTN (hypertension), HLD (hyperlipidemia), Infrarenal abdominal aortic aneurysm (AAA) without rupture, OA (osteoarthritis), GERD (gastroesophageal reflux disease), Diastolic dysfunction, Seizure disorder, Cigarette nicotine dependence with nicotine-induced disorder. * Surgical History: t onsillectomy , cholecystectomy , cataract removal , abdominal aortic aneurysm repair , vascular bypass , Cardiac Catheterizations . * Hospitalization/Major Diagno stic Procedure: D enies Past Hospitalization. * Family History: F ather: tuberculosis. M other: diagnosed with Diabetes, Arthritis. * Social History: ???Tobacco Use:?Tobacco Control (Standard)?Tobacco use:?Current every day smoker ?Additional Findings: Tobacco user?Moderate cigarette smoker (10-19 cigs/day) ?Electronic Cigarette use?Current user?No ?LM: Additional Tobacco Questions?Number of Years Pt Smoked:?63 ?Number of Packs per Day:?1 ???Miscellaneous:?Occupation?Occupation:?Retired [employer] ?Pets: cats. ???Drugs/Alcohol:?Drugs?Have you used drugs other than those for medical reasons in the past 12 months??No ?Does the Patient have a History of Drug Abusein the Past??No ?Caffeine?Intake:?2-3 cups per day Coffee ?Do you drink alcohol?: No. ?Do you smoke marijuana?: Denies. * Medications: T aking amLODIPine Besylate 10 MG Tablet Oral , Taking Anoro Ellipta(Umeclidinium-Vilanterol) 62.5-25 MCG/ACT Aerosol Powder Breath Activated 1 puff Inhalation QD , Taking Citalopram Hydrobromide 20 MG Tablet Oral , Taking Clopidogrel Bisulfate 75 MG Tablet Oral , Taking Latanoprost 0.005 % Solution Ophthalmic , Taking Lisinopril 10 MG Tablet Oral , Taking Moxifloxacin HCl 0.5 % Solution Ophthalmic , Taking prednisoLONE Acetate 1 % Suspension Ophthalmic , Taking Rosuvastatin Calcium 10 MG Tablet Oral * Allergies: C eleBREX: Allergy, Atorvastatin: Allergy, Rofecoxib: Internal Bleeding - Allergy. Objective: * Vitals: Assessment: Plan: * Treatment: * Procedures: ???PFT:?Data:?PFT 06/30/2023: ?-FEV1/FVC: 45% ?-FEV1: 82% ?-FVC: 127% ?-UKN16-50%: 34% ?-Bronchodilator response: None ?-RV: 118% ?-T% ?-DLCO: 91% ?PFT 03/09/2016: ?-FEV1/FVC: 55% ?-FEV1: 93% ?-FVC: 122% ?-KAL26-65%: 40% ?-Bronchodilator response: None ?-RV: 114% ?-T% ?-DLCO: 57% ?PFT 03/17/2015: ?-FEV1/FVC: 54% ?-FEV1: 101% ?-FVC: 135% ?-CAL41-03%: 37% ?-Bronchodilator response: None ?-RV: 94% ?-T% ?-DLCO: 54%.? * Preventive Medicine: ??COVID Vaccination:?Has patient had COVID Vaccination?COVID Vaccination?Yes 01/04/2021 ??Immunization Status:?Pneumovacc?Prevnar -02/07/2019.?Influenza?12/20/2022.?Boostrix?12/10/2020.? ??Screenings/Counseling:?FALL RISK SCREENING?Fall Risk Assessment:?One fall with injury in the past year ?Are you afraid of falling??Yes ?TOBACCO ACTION PLAN?Patient counselled on the dangers of tobacco use and urged to quit.? 10/24/2023 ?Education on smoking effects provided 10/24/2023 ???RSV-06/09/2023. * * Electronic signature of Randolph Rosas DO on 04/01/2025 at 12:27 PM ESTSign off status: PendingVisit Status:?N/S N/C (No Show/No Charge) * Provider: Lyric Rosas DO Date: 04/07/2023 Generated for Printing/Faxing/eTransmitting on:?04/01/2025 12:27 PM EST
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
--- OUTSIDE RECORDS SUMMARY | 2025-04-01 12:27 | XMS_ITS | Clinical Summary ---
Author Organization [employer] [facility] tem Address [id number] [address] [place] [address] Care Team Providers Care Boat Pilot Name Role Phone Hector Echeverria MD Primary Care Provider [phone] Allergies Active AllergyReactionsCriticalityNoted NzcvVclvcujaFpfouwltaJkvh58/19/2018 Internal bleeding Medications MedicationSigDispense QuantityRefillsLast FilledStart DateEnd DateStatus phenytoin (DILANTIN) 100 mg ER capsule Take by mouth 2 (two) times a day.Active clopidogrel (PLAVIX) 75 mg tablet Take 75 mg by mouth daily.Active rosuvastatin (CRESTOR) 5 mg tablet Take 5 mg by mouth daily.Active gabapentin (NEURONTIN) 300 mg capsule Take 300 mg by mouth 3 (three) times a day.Active tiZANidine (ZANAFLEX) 4 mg tablet Take 4 mg by mouth every 6 (six) hours as needed for muscle spasms.Active HYDROcodone-acetaminophen (NORCO) 5-325 mg per tablet Take 1 tablet by mouth every 6 (six) hours as needed for pain.Active aspirin 81 mg Take 81 mg by mouth daily.Active vitamin E 600 UNIT capsule Take 400 Units by mouth daily.Active omega-3 fatty acids-fish oil (FISH OIL) 300-1,000 mg capsule Take 2 g by mouth daily.Active Social History Tobacco UseTypesPacks/DayYears UsedDateSmoking Tobacco: Every DayCigarettes Smokeless Tobacco: NeverAlcohol UseStandard Drinks/WeekCommentsNo0 (1 standard drink = 0.6 oz pure alcohol)ChildcareAnswerDate RecordedChildcareUnknown 09/12/2018EmploymentAnswerDate PmccxqlxQtypmigkvjTwfvocv72/12/2019Purpose - Life AnswerDate RecordedPurpose and direction in bxfpOzcicsr14/11/2021ex and Gender InformationValueDate RecordedSex Assigned at BirthNot on fileLegal SexMale 11/06/2014 11:56 AM EDTGender IdentityNot on fileSexual OrientationNot on file Last Filed Vital Signs Vital SignReadingTime TakenCommentsBlood Fbgncnjr702/8105/10/2017 11:15 AM EST Sctku877405/10/2017 11:15 AM QVHLqtwaawlabd65.7 ??C (96.3 ??F)05/10/2017 10:10 AM ESTRespiratory Zyqn797905/10/2017 10:58 AM ESTOxygen Ebkskgwyva19%05/10/2017 11:15 AM ESTInhaled Oxygen Concentration--Tzwnvm38.7 kg (178 lb)05/10/2017 6:38 AM EST Ktnkxg347.3 cm (5' 11 )05/10/2017 6:38 AM ESTBody Mass Index24.8305/10/2017 6:38 AM EST Plan of Treatment Not on file Medical Devices ImplantedTypeAreaManufacturerDevice IdentifierShelf Expiration DateModel / Serial / LotSpeedbridge - Sna - [id number] Implanted:Qty: 1 on 05/10/2017 [facility]: [id number] / NA / [id number] Insurance Care Teams Team MemberRelationshipSpecialtyStart DateEnd Date Hector Echeverria MD [address] [id number] PCP - GeneralInternal Medicine04/21/17
--- OUTSIDE RECORDS SUMMARY | 2025-04-01 12:27 | XMS_ITS | Encounter Summary ---
Author Organization [facility] Address [address] [place] [address] Care Team Providers Care Post Anesthesia Nurse Name Role Phone Hector Echeverria MD Primary Care Provider [phone] Hector Echeverria MD Unavailable [phone] Jayashree Vanegas LPN Unavailable Reason for Visit * ReasonCommentsMed Refill Encounter Details DateTypeDepartmentCare Team (Latest Contact Info)Gkhcixppwck11/17/2025Refill [facility] [place] [facility] [address] [facility] [address] [place] [phone] Hector Echeverria MD [address] [facility] [address] [place] [address] Seizure disorder (HCC); Peripheral arterial occlusive disease Social History Tobacco UseTypesPacks/DayYears UsedDateSmoking Tobacco: Every DayCigarettes CigarsStarted: 2009Alcohol UseStandard Drinks/WeekCommentsNever0 (1 standard drink = 0.6 oz pure alcohol)B1300 Health LiteracyAnswerDate RecordedHow often do you need to have someone help you when you read instructions, pamphlets, or other written material from your doctor or pharmacy?Qtsfsoxyx56/07/2024 Humiliation, Afraid, Rape, and Kick questionnaireAnswerDate RecordedWithin the last year, have you been afraid of your partner or ex-partner?No02/08/2024Within the last year, have you been humiliated or emotionally abused in other ways by your partner or ex-partner?No02/08/2024Within the last year, have you been kicked, hit, slapped, or otherwise physically hurt by your partner or ex-partner?No02/08/2024Within the last year, have you been raped or forced to have any kind of sexual activity by your partner or ex-partner?No02/08/2024 Social Connection and Isolation PanelAnswerDate RecordedIn a typical week, how many times do you talk on the phone with family, friends, or neighbors?More than three times a week02/08/2024How often do you get together with friends or relatives?More than three times a week02/08/2024How often do you attend spiritism or buddhism services?Never02/08/2024o you belong to any clubs or organizations such as spiritism groups, unions, fraternal or athletic groups, or school groups? Yes02/08/2024How often do you attend meetings of the clubs or organizations you belong to?1 to 4 times per year02/08/2024re you , , , , never , or living with a partner?Mdkvopl8002/08/2024UDIT-C AnswerDate RecordedQ1: How often do you have a drink containing alcohol?Never 02/08/2024Q2: How many drinks containing alcohol do you have on a typical day when you are drinking?Patient does not drink02/08/2024Q3: How often do you have six or more drinks on one occasion?Never02/08/2024Overall Financial Resource Strain (CARDIA)AnswerDate RecordedHow hard is it for you to pay for the very basics like food, housing, medical care, and heating?Not hard at all02/08/2024 PHQ-2AnswerDate RecordedPatient Health Questionnaire-2 Edufc49404/28/2024[place] [facility] [place] [facility] Occup[facility] - Occupational Stress QuestionnaireAnswerDate RecordedDo you feel stress - tense, restless, nervous, or anxious, or unable to sleep at night because yourmind is troubled all the time - these days?To some hjvltf2602/08/2024Exercise Vital SignAnswerDate RecordedOn average, how many days per week do you engage in moderate to strenuous exercise (like a brisk walk)?0 days02/08/2024On average, how many minutes do you engage in exercise at this level?0 min02/08/2024Hunger Vital SignAnswerDate RecordedWithin the past 12 months, you worried that your food would run out before you got the money to buy more.Never true02/08/2024Within the past 12 months, the food you bought just didn't last and you didn't have money to get more.Never true02/08/2024RAPARE - TransportationAnswerDate RecordedIn the past 12 months, has lack of transportation kept you from medical appointments or from getting medications?No 02/08/2024In the past 12 months, has lack of transportation kept you from meetings, work, or from getting things needed for daily living?No02/08/2024 Housing Stability Vital SignAnswerDate RecordedIn the last 12 months, was there a time when you were not able to pay the mortgage or rent on time?No02/08/2024In the past 12 months, how many times have you moved where you were living?0 02/08/2024t any time in the past 12 months, were you homeless or living in a alf (including now)?No02/08/2024Sex and Gender InformationValueDate Recorded Sex Assigned at BirthNot on fileLegal BnsWxzw5606/15/2022 7:01 PM EDTGender IdentityNot on fileSexual OrientationNot on filedocumented as of this encounter Miscellaneous Notes * Telephone Encounter - HORTENSIA Shelton - 03/20/2025 9:14 AM EST Meds sent. documented in this encounter Plan of Treatment DateTypeDepartmentCare Team (Latest Contact Info)Xwzlfomhowo64/05/2026 10:30 AM ESTOffice Visit [facility] [place] [facility] [address] [facility] [address] [place] [address] Hector Echeverria MD [address] [facility] [address] [place] [address] documented as of this encounter Visit Diagnoses Diagnosis Seizure disorder (HCC) Unspecified epilepsy without mention of intractable epilepsy Peripheral arterial occlusive disease Unspecified peripheral vascular disease documented in this encounter Care Teams Team MemberRelationshipSpecialtyStart DateEnd Date Hector Echeverria MD [address] [facility] [address] [place] [address] PCP - [facility]sonnal [facility]08/09/22 Hector Echeverria MD [address] [facility] 110 [place] [address] PCP - [facility]08/02/23 Jayashree Vanegas LPN [address] [facility] [address] [place] [address] 06/21/24documented as of this encounter
--- OUTSIDE RECORDS SUMMARY | 2025-04-01 12:27 | XMS_ITS | Clinical Summary ---
Author Organization [facility] Address [address] [place] [address] Care Team Providers Care Grain Unloader Name Role Phone Hector Echeverria MD Primary Care Provider [phone] Hector Echeverria MD Unavailable [phone] Jayashree Vanegas LPN Unavailable Allergies Active AllergyReactionsCriticalityNoted LfoeDtqvgytwAknopzotmhmnMjl86/05/2022 Caused back pain XghchrolnWfdmxdp75/20/2024ofecoxibGI bleeding,Other,NwmtblpAksf66/19/2014 Other Reaction(s): internal bleeding, Other Internal bleeding Medications MedicationSigDispense QuantityRefillsLast FilledStart DateEnd DateStatus amLODIPine (Norvasc) 10 MG tablet Take 10 mg by mouth in the morning.06/26/2022ctive latanoprost (Xalatan) 0.005 % ophthalmic solution PLACE 1 DROP INTO BOTH EYES ONCE A DAY AT HEXYTUM2711/03/2022ctive rosuvastatin (Crestor) 10 MG tablet Take 1 tablet by mouth in the morning.11/10/2022ctive alpha tocopherol (Vitamin E) 400 units capsule 1 capsule 1 (one) time each day at the same time.Active albuterol HFA (ProAir HFA) 90 mcg/act inhaler Indications:Rhonchi at left lung baseInhale 2 puffs every 4 (four) hours if needed for wheezing 18 g ctive lisinopril 10 MG tablet Take 10 mg by mouth DailyActive tamsulosin (Flomax) 0.4 MG 24 hr capsule Indications:Benign prostatic hyperplasia with urinary frequencyTake 1 capsule (0.4 mg) by mouth Daily 30 capsule ctive phenytoin ER (Dilantin) 100 MG capsule Indications:Seizure disorder (HCC)TAKE 1 CAPSULE BY MOUTH TWICE A DAY 180 capsule 5Active clopidogrel (Plavix) 75 MG tablet Indications:Peripheral arterial occlusive diseaseTAKE 1 TABLET BY MOUTH EVERY DAY 90 tablet 5Active clopidogrel (Plavix) 75 MG tablet Indications:Peripheral arterial occlusive diseaseTAKE 1 TABLET BY MOUTH EVERY DAY 100 tablet Discontinued phenytoin ER (Dilantin) 100 MG capsule Indications:Seizure disorder (HCC)TAKE 1 CAPSULE BY MOUTH TWICE A DAY 200 capsule Discontinued Active Problems ProblemNoted DateDiagnosed DateBenign prostatic hyperplasia with urinary coulfulny57/26/2025MVA restrained pjrigb0401/23/2024Strain of lumbar region 01/23/2024entrilobular tdutfiojj77/20/2024bdominal aortic aneurysm without tgzlhqq0909/20/2022djustment disorder, mwlzqkxtkjo58/20/2023nxiety state 09/20/2022C (acromioclavicular) vwchhzyxk44/20/2023rthritis of right acromioclavicular joint09/20/2022therosclerosis of [place] coronary artery of [place] heart without angina fkuvhnqc99/20/2023enign essential hypertension 09/20/2022ervical spine hxwrdvbgo04/20/2023igarette nicotine dependence without vjulohijsrml61/20/8244Pioobmzatvvjpg66/20/6578Chkjxyaosxca16/20/2023OPD (chronic obstructive pulmonary disease)09/20/2022astro-esophageal reflux disease without lkkjqvqaajt06/20/2023eneralized osteoarthrosis, involving multiple sites09/20/20221777Xzcezyjpqqghkvdzlpeg96/20/2023Osteoarthritis of right hip09/20/2022eripheral arterial occlusive lcqelbu3109/20/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 Resolved Problems ProblemNoted DateDiagnosed DateResolved DateNicotine xdegjbxxge20/20/2023 11/21/2023 Encounters DateTypeDepartmentCare LvkiJqhbtgivjev66/17/2025Refill [facility] [address] [place] [address] Hector Echeverria MD Seizure disorder (HCC); Peripheral arterial occlusive zjhazbv5202/26/2025 9:30 AM ESTOffice Visit [facility] [address] [place] [address] Hector Echeverria MD Benign prostatic hyperplasia with urinary frequency (Primary Dx); Flu vaccine need; Centrilobular emphysema (HCC); Benign essential hypertension; PVD (peripheral vascular disease); Kgjelruddvsejuhwynib77/26/2025amboo flowsheet [facility] [address] [facility] [address] [place] [address] Hector Echeverria MD 02/26/20254598Wkvazd55/18/2025Patient Outreach [facility] [place] [address] Jayashree Vanegas LPN from Last 3 Months Immunizations ImmunizationAdministration DatesNext DueInfluenza, High Dose Seasonal, Preservative Free02/26/2025,02/27/2024,12/30/2019,01/03/2018,02/09/2016 Influenza, High-dose Seasonal, Quadrivalent, Preservative Free03/09/2022, 01/14/2022,01/04/2021,12/30/2019,01/03/2018Influenza, Seasonal, Quadrivalent, Hanbttxoxt16/19/2023Influenza, injectable, MDCK, awqqmudbakwv66/16/2019 Influenza, injectable, quadrivalent, preservative free12/07/2016Influenza, seasonal, intradermal, preservative free01/20/2014Pneumococcal Conjugate PCV 13 02/07/2019Pneumococcal Polysaccharide KXBD6203/09/2016,02/13/2014RSV, recombinant, protein subunit RSVpreF, adjuvant reconstitu, 120mcg/0.5mL, PF (Arexvy)06/09/2023Tdap12/10/2020Zoster, Wveyukqufpn18/30/2025,06/20/2024 Family History Medical HistoryRelationNameCommentsDiabetesFatherDiabetesMotherNo Known Problems Son4 sons, healthyMelanomaNeg ZrHcmvjzqfHaizKacjdiMwregjqbVpckldn1UejfibRrzyyrkw TibqxuZcxgtpmfThbksg2Jmc Social History Tobacco UseTypesPacks/DayYears UsedDateSmoking Tobacco: Every DayCigarettes CigarsStarted: 2008 Tobacco Cessation:Ready to Q uit: Not Asked; Counseling Given: Not Answered Alcohol UseStandard Drinks/WeekCommentsNever0 (1 standard drink = 0.6 oz pure alcohol)B1300 Health LiteracyAnswerDate RecordedHow often do you need to have someone help you when you read instructions, pamphlets, or other written material from your doctor or pharmacy?Mfrkvmhvc15/07/2024Humiliation, Afraid, Rape, and Kick questionnaireAnswerDate RecordedWithin the [...] of sexual activity by your partner or ex-partner?No02/08/2024Social Connection and Isolation Panel AnswerDate RecordedIn a typical week, how many times do you talk on the phone with family, friends, or neighbors?More than three times a week02/08/2024How often do you get together with friends or relatives?More than three times a week 02/08/2024How often do you attend hinduism or samaritan services?Never02/08/2024o you belong to any clubs or organizations such as hinduism groups, unions, fraternal or athletic groups, or school groups?Yes02/08/2024How often do you attend meetings of the clubs or organizations you belong to?1 to 4 times per year02/08/2024re you , , , , never , or living with a partner?Lpfsity1102/08/2024UDIT-CAnswerDate RecordedQ1: How often do you have a drink containing alcohol?Never02/08/2024Q2: How many drinks containing alcohol do you have on a typical day when you are drinking?Patient does not drink02/08/2024Q3: How often do you have six or more drinks on one occasion?Never02/08/2024Overall Financial Resource Strain (CARDIA)AnswerDate RecordedHow hard is it for you to pay for the very basics like food, housing, medical care, and heating?Not hard at all02/08/2024HQ-2AnswerDate Recorded Patient Health Questionnaire-2 Bzmua70404/28/2024[facility] [place] [facility] - Occupational Stress QuestionnaireAnswerDate RecordedDo you feel stress - tense, restless, nervous, or anxious, or unable to sleep at night because your mind is troubled all the time - these days?To some pudjzd2302/08/2024Exercise Vital SignAnswerDate RecordedOn average, how many days per week do you engage in moderate to strenuous exercise (like a brisk walk)?0 days02/08/2024On average, how many minutes do you engage in exercise at this level?0 min02/08/2024Hunger Vital SignAnswerDate RecordedWithin the past 12 months, you worried that your food would run out before you got the money to buymore.Never true02/08/2024 Within the past 12 months, the food you bought just didn't last and you didn't have money to get more.Never true02/08/2024RAPARE - TransportationAnswerDate RecordedIn the past 12 months, has lack of transportation kept you from medical appointments or from getting medications?No02/08/2024In the past 12 months, has lack of transportation kept you from meetings, work, or from getting things needed for daily living?No02/08/2024Housing Stability Vital SignAnswerDate RecordedIn the last 12 months, was there a time when you were not able to pay the mortgage or rent on time?No02/08/2024In the past 12 months, how many times have you moved where you were living?t any time in the past 12 months, were you homeless or living in a [place] (including now)?No02/08/2024Sex and Gender InformationValueDate RecordedSex Assigned at BirthNot on fileLegal XslVokt3206/15/2022 7:01 PM EDTGender IdentityNot on fileSexual OrientationNot on file Last Filed Vital Signs Vital SignReadingTime TakenCommentsBlood Cwtrrypm009/7402/26/2025 9:33 AM EST Ynjxm038502/26/2025 9:33 AM DAJPlmkjashhvd05.6 ??C (97.8 ??F)09/20/2024 9:31 AM EDTRespiratory Qrir222609/05/2024 9:41 AM EDTOxygen Qcfkkswgot25%02/26/2025 9:33 AM ESTInhaled Oxygen Concentration--Ykzigu53.8 kg (156 lb)02/26/2025 9:33 AM EST Rkvnxe096.5 cm (5' 9.5 )02/26/2025 9:33 AM ESTBody Mass Index22.7102/26/2025 9:33 AM EST Plan of Treatment DateTypeDepartmentCare Team (Latest Contact Info)Pdstfbucwnk39/05/2026 10:30 AM ESTOffice Visit [facility] [address] [facility] [address] [place] [address] Hector Echeverria MD [address] [facility] [address] [place] [address] Health MaintenanceDue DateLast DoneCommentsMedicare Annual Wellness (AWV) 6006/14/2024, 4Pneumococcal Vaccine: 65+ YearsCompleted 02/07/2019, 12/07/2016, 02/13/2014Influenza JzmlcnxQjihbpdsd72/26/2025, 02/27/2024, 12/20/2022, Additional history exists Insurance Care Teams Team MemberRelationshipSpecialtyStart DateEnd Hector Echeverria MD [address] [facility] [address] [place] [address] PCP - GeneralInternal Medicine08/09/22 Hector Echeverria MD [address] [facility] [address] [place] [address] PCP - ACO Reach08/02/23 Jayashree Vanegas LPN [address] [facility] [address] [place] [address] 06/21/24
--- OUTSIDE RECORDS SUMMARY | 2025-04-01 12:27 | XMS_ITS | Patient Health Record ---
Author Organization [facility] [place] Address [address] [place] [address] Care Team Providers Care Test Desk Trouble Locator Name Role Phone Hector Echeverria MD Primary Care Provider Randolph Booth Unavailable [phone] Allergies Allergen (clinical drug ingredient) Drug/Non Drug Allergy documented on EMR Reaction Allergy Type Onset Date Status celecoxib CeleBREX Unknown Drug Allergy ActiveatorvastatinAtorvastatinUnknownDrug AllergyActiverofecoxibRofecoxib Internal BleedingDrug AllergyActive Reason For Referral No Information Medications Medication SIG (Take, Route, Frequency, Duration) Notes Start Date End Date Status Moxifloxacin HCl 0.5 % Ophthalmic; Duration: 10 Days ActiveRosuvastatin Calcium 10 MGOral; Duration: 90 DaysActiveprednisoLONE Acetate 1 %Ophthalmic; Duration: 30 DaysActiveClopidogrel Bisulfate 75 MGOral; Duration: 90 DaysActivePhenytoin Sodium Extended 100 MGOral; Duration: 90 Days ActiveCitalopram Hydrobromide 20 MGOral; Duration: 90 DaysActiveLisinopril 10 MG Oral; Duration: 90 DaysActiveLatanoprost 0.005 %Ophthalmic; Duration: 90 Days ActiveAnoro Ellipta 62.5-25 MCG/ACT1 puff Inhalation QD; Duration: 30 days 10/24/2023Not-TakingAlbuterol Sulfate HFA 108 (90 Base) MCG/ACTInhalation; Duration: 17 DaysNot-TakingamLODIPine Besylate 10 MGOral; Duration: 90 Days Active Immunizations Vaccine Route Administration Date Status Comme nts Arexvy Unknown 06/09/2023 Administered Flu, Fluad (35532) 65 yrs + High Dose Seasonal ()Tflklun7502/27/2024 AdministeredFlu, Fluad (34006) 65 yrs+, single-dose syringe (0156-4702)Unknown 3AdministeredPneumococcal (Prevnar 13)Dbhtejr0202/07/2019Administered SARS-COV-2 (COVID 19 Pfizer 30mcg/0.3mL)Nhdvubw03/04/2021AdministeredTdap (Boostrix)Ghohqsv54/09/2021Administered Social History Tobacco Use: Social History Observation Description Date Details (start date - stop date) Current Smoker NA - NA Tobacco Control (Standard) Question Answer Notes Tobacco use: Current every day smoker Additional Findings: Tobacco userModerate cigarette smoker (10-19 cigs/day) Problems Problem Type SNOMED Code ICD Code Onset Dates Problem Status W/U Status Risk Notes Problem Centrilobular emphysema (67603404) Centri lobular emphysema (J43.2) ActiveconfirmedProblemEmphysema (46239500)Emphysema, unspecified (J43.9)Active confirmedProblemAbnormal gait (84322590)Unsteadiness on feet (R26.81)Active confirmedProblemCoronary artery disease (93655356)CAD (coronary artery disease) (I25.10)ActiveconfirmedProblemMental disorder caused by drug (224874699) Cigarette nicotine dependence with nicotine-induced disorder (F17.219)Active confirmedProblemSeizure disorder (887734374)Seizure disorder (G40.909)Active confirmed Vital Signs Heart Rate 78 /min 04/17/2024 Mircwhimdlb23.8 degrees Ebgtjkcmuz18/15/2025Respiratory Rate18 /min04/17/2024 Blood pressure olkrqgqmh32 mm Hg04/17/20243145Luncqrgr65 %04/17/20241350Dbvgzt89 in 04/17/2024lood pressure mm Hg04/17/20244151Cjzfgh340.4 lbs04/17/2024MI 23.24 kg/m204/17/2024 Encounters Encounter Location Date Provider Diagnosis [facility] [place] [address] [place] [address] 04/17/2024 Randolph Rosas Centrilobular emphys virginie J43.2 [...] smoking cessation. He may follow-up as needed. 04/17/2024igarette nicotine dependence with nicotine-induced disorder (ICD-10 - F17.219) Patient was counseled on the importance of smoking cessation. Patient did not request any assistance today. He does not meet current LDCT screening criteria. 04/17/2024Seizure disorder (ICD-10 - G40.909) Patient remains on phenytoin. 04/17/2024Unsteadiness on feet (ICD-10 - R26.81) Patient was noted to have an unsteady gait upon arrival. After the enounter, I personally observed the patient walk. 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 I mentioned his gait, which he replied I probably should be using a cane, but I don't want to have to carry it around with me. I offered to get him a wheelchair out to his car, but he refus ed. 04/17/2024Other Plan Of Treatment No Information Insurance Providers Payer Name Payer Address Payer Phone Subscriber Number Group Number Insured Name Patient Relationship to Insured Coverage Start Date Coverage End Date [place] [address] [place] [address] [id number] Milena Francis - [facility] [address] [place] [id number], ElmerSelf - patient is the insured Medical (General) History Medical History History ICD Code Centrilobular emphysema J43.2 CAD (coronary artery disease) I25.10 PAD (peripheral artery disease) I73.9 HTN (hypertension) I10 HLD (hyperlipidemia) E78.5 Infrarenal abdominal aortic aneurysm (AA A) without rupture I71.43 OA (osteoarthritis) M19.90 GERD (gastroesophageal reflux disease) K 21.9 Diastolic dysfunction I51.89 Seizure disorder G40.909 Cigarette nicotine dependence with nicot ine-induced disorder F17.219 Surgical History Surgery Date(Month/Year) Cardiac Catheterizations vascular bypassabdominal aortic aneurysm repaircataract removalcholecystectomy tonsillectomy
--- OUTSIDE RECORDS SUMMARY | 2025-04-01 12:27 | XMS_ITS | Encounter Summary ---
Author Organization [facility] Address [address] [place] [address] Care Team Providers Care Mortician Supplies Sales Representative Name Role Phone Hector Echeverria MD Primary Care Provider [phone] Reason for Visit * ReasonCommentsMed Refill Encounter Details DateTypeDepartmentCare Team (Latest Contact Info)Xoyeqmqmgsk81/17/2025[facility] [address] [place] [address] Guanakito Restrepo MD [address] [facility] [address] [facility] [place] [place] [address] Primary hypertension Social History Tobacco UseTypesPacks/DayYears UsedDateSmoking Tobacco: Every DayCigarettes Passive Smoke Exposure: NeverSmokeless Tobacco: NeverAlcohol UseStandard Drinks/WeekCommentsNever0 (1 standard drink = 0.6 oz pure alcohol)PHQ-2Answer Date RecordedPatient Health Questionnaire-2 Epjpd062UT Safety & EnvironmentAnswerDate RecordedFear of Current or Ex-PartnerNot on file05/25/2023 Emotionally AbusedNot on file05/25/2023hysically AbusedNot on file05/25/2023 Sexually AbusedNot on file05/25/2023hysically or Sexually AbusedNot on file 05/25/2023Sex and Gender InformationValueDate RecordedSex Assigned at BirthMale 01/15/2025 4:04 PM EDTLegal MzzMffy3809/29/2021 9:44 PM EDTGender IdentityMale 01/15/2025 4:04 PM EDTSexual OrientationHeterosexual or Aovpamnj64/15/2025 4:04 PM EDTdocumented as of this encounter Plan of Treatment DateTypeDepartmentCare Team (Latest Contact Info)Dlltpirjqyj56/19/2026 1:00 PM EDTFollow-Up [facility] [address] [place] [phone] Ivone Pierson PA-C [address] [facility] [address] [place] [phone] documented as of this encounter Visit Diagnoses Diagnosis Primary hypertension Unspecified essential hypertension documented in this encounter Care Teams Team MemberRelationshipSpecialtyStart DateEnd Date Hector Echeverria MD [address] [place] [address] PCP - Rhgbxdy29/5/22documented as of this encounter
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
--- NOTE | 2025-04-01 12:42 | CA_ITS ---
Patient Name: MARLI STARK MR#: [id number] : 1940 Exam Date: 04/01/2025 Ordering Doctor: DR KARIS RESTREPO M.D. ECHOCARDIOGRAM REPORT PROCEDURE: CA ECHO DOPPLER COMPLETE INDICATIONS: SOTO COMPARISON: None. DESCRIPTION: COMPLETE ECHOCARDIOGRAM Real-time transthoracic echocardiography with 2D, M-mode, spectral and color flow Doppler performed. QUALITY: Technical quality was good. LEFT VENTRICLE: Normal chamber size. Normal left ventricular wall thickness. The septum is abnormal in motion likely due to bundle branch block. Visual estimation of left ventricular ejection fraction is 50-55%. Longitudinal strain is mildly reduced at -15.7%. LV EF: Lower limits of normal left ventricular ejection fraction, (50-55%). DIASTOLIC: Grade I diastolic dysfunction. ATRIAL SEPTUM: LEFT ATRIUM: Mild dilatation. RIGHT ATRIUM: Moderate dilatation. RIGHT VENTRICLE: Normal chamber size. Normal right ventricular systolic function. TRICUSPID VALVE: Normal mobility and thickness. No stenosis with mild to moderate regurgitation. No evidence of pulmonary hypertension. RVSP 32 mmHg. MITRAL VALVE: Normal mobility and thickness. No evidence of mitral valve stenosis. Mild mitral annular calcification. No mitral regurgitation. AORTIC VALVE: Normal trileaflet appearance. Thickened aortic valve. Normal leaflet mobility. No evidence of aortic valve stenosis. Trivial aortic regurgitation. AORTIC ROOT: Normal diameter and appearance. The aortic root measures 3.5 cm. The ascending aorta measures 2.4 cm. PULMONIC VALVE: Normal thickness and mobility. No stenosis. Mild regurgitation. PERICARDIUM: No evidence of pericardial effusion. IVC: Collapses with inspiration. The IVC is normal in size measuring 1.7 cm PLEURA: CONCLUSION: 1. Normal left ventricular size with low normal systolic function. Estimated LVEF is 50-55%. 2. Normal right ventricular size and systolic function. 3. Mild to moderate biatrial dilatation. 4. Grade I diastolic dysfunction. 5. Mild to moderate tricuspid regurgitation. 6. Normal right sided pressures. Adult Echocardiography Procedure Report Left Ventricle LVEDD (3.7 - 5.6 cm): 4.79 cm LVESD (2.2 - 4.0 cm): 3.86 cm LVIVS thickness (0.6 - 1.2 cm): 0.98 cm LVPW thickness (0.5 - 1.0 cm): 0.93 cm e': 0.09 m/s E - e': 6.67 LVOT Max Gradient: 4.03 mm[Hg] LVOT Area (cm2): 1.00 m/s Peak Velocity (LVOT): 1.00 m/s Mean Velocity (LVOT): 0.57 m/s LVOT Diameter 2.42 cm Left Ventricular Ejection Fraction: 50-55 % Left Atrium LA Volume Index (2D A2C): 36.40 ml/m2 Left Atrium Systolic Dimension: 3.11 cm Mitral Valve MV E to A Ratio: 0.66 Mitral Valve A-Wave Peak Velocity: 0.88 m/s Mitral Valve E-Wave Peak Velocity: 0.58 m/s Right Ventricle RV Internal Diastolic Dimension: 3.92 cm Aorta AO Root Diam: 3.45 cm Ascending Ao Diam: 2.42 cm Aortic Valve AoV Area (Peak Pascual): 3.58 cm2, 3.58 cm2 AoV Area (VTI): 3.83 cm2, 3.83 cm2 Peak Velocity(Antegrade Flow): 1.29 m/s Peak Gradient(Antegrade Flow): 6.64 mm[Hg] Mean Velocity(Antegrade Flow): 0.86 m/s Mean Gradient(Antegrade Flow): 3.47 mm[Hg] Velocity Time Integral: 24.29 cm Tricuspid Valve Peak Velocity (Regurgitant Flow): 2.48 m/s, 2.70 m/s, 2.56 m/s Pulmonic Valve Peak Velocity: 0.97 m/s Peak Gradient: 3.57 mm[Hg], 4.03 mm[Hg] Right Atrium Right Atrium Systolic Pressure: 87.90 ml, 87.90 ml Dictated by: Karis Restrepo M.D. on 04/01/2025 at 18:38 Approved by: Karis Restrepo M.D. on 04/01/2025 at 18:49
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
--- NOTE | 2025-04-01 14:00 | CA_ITS ---
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 Order Number: [id number] Reading MD: KARIS LOGAN M.D. Interpretive Statements Summary of the findings: Right leg: JESSIKA= 0.52; TBI= 0.28. Doppler waveforms demonstrate monophasic flow at the posterior tibial and dorsalis pedis arteries. Left leg: JESSIKA= 0.86; TBI= 0.52. Doppler waveforms demonstrate monophasic flow at the posterior tibial and dorsalis pedis arteries. Segmental pressures: Segmental pressures show significant right sided inflow disease and left sided femoropopliteal and infrapopliteal disease. Pulse volume recordings: PVRs at the below knee, and ankle levels show dampened waveforms. Conclusion: The study shows evidence of PAD with moderately reduced right sided and mildly reduced left sided overall arterial flow at rest. There is suggestion of significant right sided inflow disease and left sided femoropopliteal and infrapopliteal disease. Electronically Signed On 04-01-2025 19:30:22 EST by KARIS LOGAN M.D.
== END 2025-04-01 12:24 | disposition home or self-care (01) ==
LOC: CARD 12:24
PROVIDERS: PCP Internal Medicine; Visit Provider Internal Medicine Interventional Cardiology
DX: R06.09 Other forms of dyspnea (principal); I73.9 Peripheral vascular disease, unspecified
CPT/HCPCS: 93306; 93356; 93923